=== PATIENT | female | born 1935 | race Caucasian/White ===

== ENCOUNTER → 2016-05-20 | Outpatient (CLI) | payer MEDICARE, BC | LOC: RAD 12:38 | PROVIDERS: ATTEND Internal Medicine | DX: R91.1 Solitary pulmonary nodule (principal); J98.4 Other disorders of lung | CPT/HCPCS: 71250 ==

== ENCOUNTER → 2016-06-10 | Outpatient (CLI) | payer MEDICARE, BC | LOC: RAD 13:45 | PROVIDERS: ATTEND Internal Medicine | DX: C64.1 Malignant neoplasm of right kidney, except renal pelvis (principal) | CPT/HCPCS: 78815; A9552 ==

== ENCOUNTER 2016-06-30 08:57 | Day surgery (SDC) | payer MEDICARE, BC ==
[2016-06-30 10:26] LABS: BLOOD UREA NITROGEN 34 mg/dL (7-20); CREATININE RESULT 1.65 mg/dL (0.52-1.25)
[2016-06-30 13:00] LABS: PROTHROMBIN TIME 12.5 SEC (11.4-15.4)
[2016-06-30 13:14] LABS: PARTIAL THROMBOPLASTIN TIME 20.8 SEC (23.5-35.8)
[2016-06-30] MEDS ORDERED: MIDAZOLAM 2 MG/2 ML INJ ONE (14:15)
[2016-06-30] MEDS ORDERED: FENTANYL CITRATE INJ/PF 100 MCG/2 ML AMPUL ONE (14:15)
[2016-06-30 18:39] VITALS: BP 135/64
== END 2016-06-30 18:40 | disposition home or self-care (01) ==
LOC: RAD 08:57
PROVIDERS: ATTEND Internal Medicine
PROC: 0BBF3ZX Excision of Right Lower Lung Lobe, Percutaneous Approach, Diagnostic (ICD-10-PCS; principal; 2016-06-30)
DX: C64.1 Malignant neoplasm of right kidney, except renal pelvis (principal); Z79.899 Other long term (current) drug therapy; Z79.01 Long term (current) use of anticoagulants
CPT/HCPCS: 36415; 84520; 82565; 82947; 85610; 85730; 88342 ×2; 88341 ×2; 88305 ×2; 71010; 77012; 32405; J2250; J3010

== ENCOUNTER → 2016-09-12 | Outpatient (CLI) | payer MEDICARE, BC ==
--- NOTE | 2016-09-12 11:46 | RADIOLOGY REPORT (SQ) ---
EXAM DESCRIPTION: CT CHEST WITHOUT COMPLETED DATE/TIME: 09/12/2016 10:14 am REASON FOR STUDY: KIDNEY CA C64.1 MALIGNANT NEOPLASM OF RIGHT KIDNEY, EXCEPT RENAL PELVIC COMPARISON: 05/20/2016 TECHNIQUE: CT scan performed of the chest without intravenous contrast. Images reviewed with lung, soft tissue and bone windows. Reconstructed coronal and sagittal MPR images reviewed. All images st ored on PACS. All CT scanners at this facility use dose modulation, iterative reconstruction, and/or weight based d osing when appropriate to reduce radiation dose to as low as reasonably achievable (ALARA). [facility]: Dose Right [facility]: CareDose [facility]: Dose Right [facility]: Teradose 4D [facility]: [employer] RADIATION DOSE: 4.45 mGy. LIMITATIONS: No technical limitations. FINDINGS: LUNGS AND PLEURA: Both pulmonary nodules of concern on the prior study are smaller. More cephalad 1 now measures 7.2 mm as opposed to 11.8. The more inferior nodule now measures 11.8 mm com pared with 20.1 mm on the earlier study. No new pulmonary nodules present. There is no infiltrate o r effusion. HILAR AND MEDIASTINAL STRUCTURES: No identified masses or abnormal nodes. No obvious aneurysm. HEART AND VASCULAR STRUCTURES: There is considerable aortic and coronary atherosclerosis. There is n o aneurysm. There is no pericardial effusion. UPPER ABDOMEN: See separate report of the CT of the abdomen. THYROID AND OTHER SOFT TISSUES: No masses. No adenopathy. BONES: No significant finding. HARDWARE: None in the chest. OTHER: No other significant findings. IMPRESSION: 1. Both pulmonary nodules are smaller. 2. There is no evidence of thoracic metastases. 3. There is extensive aortic and coronary atherosclerosis. TECHNICAL DOCUMENTATION: JOB ID: [id number] Quality ID # [id number]: Final reports with documentation of one or more dose reduction techniques (e.g., Au tomated exposure control, adjustment of the mA and/or kV according to patient size, use of iterative reconstruction technique) 2010 [employer]- All Rights Reserved
--- NOTE | 2016-09-12 11:59 | RADIOLOGY REPORT (SQ) ---
EXAM DESCRIPTION: CT ABD/PELVIS NO ORAL OR IV COMPLETED DATE/TIME: 09/12/2016 10:15 am REASON FOR STUDY: KIDNEY CA C64.1 MALIGNANT NEOPLASM OF RIGHT KIDNEY, EXCEPT RENAL PELVIC COMPARISON: None. TECHNIQUE: CT scan of the abdomen and pelvis performed without intravenous or oral contrast. Images reviewed with lung, soft tissue, and bone windows. Reconstructed coronal and sagittal MPR images revi ewed. All images stored on PACS. All CT scanners at this facility use dose modulation, iterative reconstruction, and/or weight based d osing when appropriate to reduce radiation dose to as low as reasonably achievable (ALARA). [facility]: Dose Right [facility]: CareDose [facility]: Dose Right [facility]: Teradose 4D [facility]: [employer] RADIATION DOSE: 6.07mGy. LIMITATIONS: None. FINDINGS: LOWER CHEST: See separate report of the CT of the chest. NON-CONTRASTED LIVER, SPLEEN, ADRENALS: Evaluation limited by lack of IV contrast. No identified sign ificant masses. PANCREAS: No masses. No peripancreatic inflammatory changes. GALLBLADDER: Not identified. RIGHT KIDNEY AND URETER: Right nephrectomy. LEFT KIDNEY AND URETER: No suspicious masses. Assessment limited by lack of IV contrast. No signifi cant calcifications. There are couple of tiny intrarenal calculi that are probably vascular. No hy dronephrosis or hydroureter. AORTA AND RETROPERITONEUM: The infrarenal abdominal aorta changes from a diameter of 24.5 mm to a eriberto meter of 17.4 mm and enlarges before the bifurcation to 23.2 mm. BOWEL AND PERITONEAL CAVITY: Scattered diverticula arise from the descending colon and sigmoid colon. There are no acute inflammatory changes. APPENDIX: Not identified. PELVIS, BLADDER, AND ABDOMINAL WALL: The urinary bladder is incompletely filled not well evaluated. The uterus is absent. There is no adnexal mass or fluid collection. BONES: Degenerative disc changes are present at L4-5 and L5-S1. OTHER: No other significant finding. IMPRESSION: 1. Status post right nephrectomy with no abdominal wall or pelvic metastases. 2. Extensive atherosclerosis is present in the abdomen. 3. There is diverticulosis coli with no acute inflammatory changes. TECHNICAL DOCUMENTATION: JOB ID: [id number] Quality ID # [id number]: Final reports with documentation of one or more dose reduction techniques (e.g., Au tomated exposure control, adjustment of the mA and/or kV according to patient size, use of iterative reconstruction technique) 2010 [employer]- All Rights Reserved
== END ==
LOC: RAD 09:53
PROVIDERS: ATTEND Internal Medicine
DX: C64.1 Malignant neoplasm of right kidney, except renal pelvis (principal)
CPT/HCPCS: 71250; 74176

== ENCOUNTER → 2017-03-24 | Outpatient (CLI) | payer MEDICARE, BC ==
--- NOTE | 2017-03-24 11:13 | RADIOLOGY REPORT (SQ) ---
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 TECHNIQUE: CT scan performed of the chest without intravenous contrast. Images reviewed with lung, soft tissue and bone windows. Reconstructed coronal and sagittal MPR images reviewed. All images st ored on PACS. All CT scanners at this facility use dose modulation, iterative reconstruction, and/or weight based d osing when appropriate to reduce radiation dose to as low as reasonably achievable (ALARA). [facility]: Dose Right [facility]: CareDose [facility]: Dose Right [facility]: Teradose 4D [facility]: [employer] RADIATION DOSE: mGy. LIMITATIONS: No technical limitations. FINDINGS: LUNGS AND PLEURA: 7 mm nodule in the anterior right lung base unchanged. 1.8 cm nodule in the posterior right lung base has increased in size. Prior measurement 1.2 cm. No new nodules or m asses. No pleural effusion or pleural thickening. HILAR AND MEDIASTINAL STRUCTURES: Right paratracheal adenopathy with coarse calcifications unchanged, measuring 1.8 x 2.4 cm. HEART AND VASCULAR STRUCTURES: No aneurysm. No pericardial effusion. UPPER ABDOMEN: See separate report of the CT of the abdomen. THYROID AND OTHER SOFT TISSUES: No masses. No adenopathy. BONES: No significant finding. HARDWARE: None in the chest. OTHER: No other significant findings. IMPRESSION: 1. INTERVAL INCREASE IN THE RIGHT LOWER LOBE LUNG NODULE DESCRIBED. THE SMALLER NODULE IN THE RIG HT LUNG BASE IS UNCHANGED. 2. RIGHT PARATRACHEAL ADENOPATHY WITH COARSE CALCIFICATIONS UNCHANGED. TECHNICAL DOCUMENTATION: JOB ID: [id number] Quality ID # [id number]: Final reports with documentation of one or more dose reduction techniques (e.g., Au tomated exposure control, adjustment of the mA and/or kV according to patient size, use of iterative reconstruction technique) 2010 [employer]- All Rights Reserved
--- NOTE | 2017-03-24 11:24 | RADIOLOGY REPORT (SQ) ---
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 TECHNIQUE: CT scan of the abdomen and pelvis performed without intravenous or oral contrast. Images reviewed with lung, soft tissue, and bone windows. Reconstructed coronal and sagittal MPR images revi ewed. All images stored on PACS. All CT scanners at this facility use dose modulation, iterative reconstruction, and/or weight based d osing when appropriate to reduce radiation dose to as low as reasonably achievable (ALARA). [facility]: Dose Right [facility]: CareDose [facility]: Dose Right [facility]: Teradose 4D [facility]: [employer] RADIATION DOSE: CT Rad equipment meets quality standard of care and radiation dose reduction techniq ues were employed. CTDIvol: 4.4 - 5.1 mGy. DLP: 413 mGy-cm.mGy. LIMITATIONS: None. FINDINGS: LOWER CHEST: See separate report of the CT of the chest. NON-CONTRASTED LIVER, SPLEEN, ADRENALS: Evaluation limited by lack of IV contrast. No identified sign ificant masses. PANCREAS: No masses. No peripancreatic inflammatory changes. GALLBLADDER: Surgically absent. RIGHT KIDNEY AND URETER: Surgically absent. LEFT KIDNEY AND URETER: No suspicious masses. Assessment limited by lack of IV contrast. No signifi cant calcifications. No hydronephrosis or hydroureter. AORTA AND RETROPERITONEUM: Extensive calcifications. No aneurysm. Stent in the left renal artery. No retroperitoneal masses or adenopathy. BOWEL AND PERITONEAL CAVITY: Colonic diverticulosis. No obvious masses or inflammatory changes. No f ree fluid. APPENDIX: Surgically absent. PELVIS, BLADDER, AND ABDOMINAL WALL:No abnormal masses. No free fluid. Bladder normal. BONES: No significant findings. Degenerative changes in the spine. OTHER: No other significant finding. IMPRESSION: 1. COLONIC DIVERTICULOSIS. NO CT FINDINGS OF ACUTE DIVERTICULITIS. 2. SURGICAL CHANGES AND OTHER CHRONIC FINDINGS ABOVE. NO EVIDENCE OF METASTATIC INVOLVEMENT OF TH E ABDOMEN OR PELVIS. COMMENT: Quality ID # 436: Final reports with documentation of one or more dose reduction techniques (e.g., Automated exposure control, adjustment of the mA and/or kV according to patient size, use of iterative reconstruction technique) TECHNICAL DOCUMENTATION: JOB ID: [id number] [employer]- All Rights Reserved
== END ==
LOC: RAD 08:18
PROVIDERS: ATTEND Internal Medicine
DX: C64.1 Malignant neoplasm of right kidney, except renal pelvis (principal)
CPT/HCPCS: 71250; 74176

== ENCOUNTER → 2017-05-04 | Outpatient (CLI) | payer MEDICARE, BC ==
--- NOTE | 2017-05-04 13:49 | RADIOLOGY REPORT (SQ) ---
EXAM DESCRIPTION: CT HEAD WITHOUT COMPLETED DATE/TIME: 05/04/2017 1:15 pm REASON FOR STUDY: MIGRAINE, UNSPECIFIED, NOT INTRACTABLE, WITHOUT STATUS MIGRAINOSUS G43.909 MIGRAI NE, UNSP, NOT INTRACTABLE, WITHOUT STATUS MIGR COMPARISON: 04/11/2012. TECHNIQUE: Axial images acquired through the brain without intravenous contrast. Images reviewed wi th bone, brain and subdural windows. Images stored on PACS. All CT scanners at this facility use dose modulation, iterative reconstruction, and/or weight based d osing when appropriate to reduce radiation dose to as low as reasonably achievable (ALARA). [facility]: Dose Right [facility]: CareDose [facility]: Dose Right [facility]: Teradose 4D [facility]: [employer] RADIATION DOSE: CT Rad equipment meets quality standard of care and radiation dose reduction techniq ues were employed. CTDIvol: 49.0 mGy. DLP: 783 mGy-cm.mGy. LIMITATIONS: None. FINDINGS: VENTRICLES: Prominent. CEREBRUM: No masses. No hemorrhage. No midline shift. Areas of low density in the white matter mos t likely due to chronic micro-vascular ischemic change. No evidence for acute infarction. CEREBELLUM: No masses. No hemorrhage. No alteration of density. No evidence for acute infarction. EXTRAAXIAL SPACES: Age-related involutional change. No fluid collections. No masses. ORBITS AND GLOBE: No intra- or extraconal masses. Normal contour of globe without masses. CALVARIUM: No fracture. PARANASAL SINUSES: No fluid or mucosal thickening. SOFT TISSUES: No mass or hematoma. OTHER: No other significant finding. IMPRESSION: CHRONIC CHANGES OF ATROPHY AND MICROVASCULAR ISCHEMIA. NO ACUTE PROCESS. EVIDENCE OF ACUTE STROKE: NO. TECHNICAL DOCUMENTATION: JOB ID: [id number] Quality ID # 436: Final reports with documentation of one or more dose reduction techniques (e.g., Au tomated exposure control, adjustment of the mA and/or kV according to patient size, use of iterative reconstruction technique) 2010 [employer]- All Rights Reserved
== END ==
LOC: RAD 12:56
PROVIDERS: ATTEND Nurse Practitioner Family
DX: G43.909 Migraine, unspecified, not intractable, without status migrainosus (principal); R41.0 Disorientation, unspecified
CPT/HCPCS: 70450

== ENCOUNTER 2017-05-09 18:26 | Emergency (ER) | payer MEDICARE, BC ==
--- NOTE | 2017-05-09 19:15 | RADIOLOGY REPORT (SQ) ---
EXAM DESCRIPTION: CT FACIAL AREA WITHOUT COMPLETED DATE/TIME: 05/09/2017 7:00 pm REASON FOR STUDY: fall COMPARISON: None. TECHNIQUE: Noncontrasted images through the facial bones and orbits windowed for bone and soft tissu e. Additional coronal and sagittal reconstructed images reviewed. All images stored on PACS. All CT scanners at this facility use dose modulation, iterative reconstruction, and/or weight based d osing when appropriate to reduce radiation dose to as low as reasonably achievable (ALARA). [facility]: Dose Right [facility]: CareDose [facility]: Dose Right [facility]: Teradose 4D [facility]: [employer] RADIATION DOSE: CT Rad equipment meets quality standard of care and radiation dose reduction techniq ues were employed. CTDIvol: 30.4 mGy. DLP: 553 mGy-cm. mGy. LIMITATIONS: None. FINDINGS: FACIAL BONES: No fracture or bone lesion. ORBITS: Intact. No fracture. Symmetric intact globes and retroorbital soft tissues. PARANASAL SINUSES: No fluid levels. SOFT TISSUES: Left periorbital hematoma. INFERIOR BRAIN: See separate report. OTHER: No other significant finding. IMPRESSION: Soft tissue injury. TECHNICAL DOCUMENTATION: JOB ID: [id number] Quality ID # 436: Final reports with documentation of one or more dose reduction techniques (e.g., Au tomated exposure control, adjustment of the mA and/or kV according to patient size, use of iterative reconstruction technique) 2010 [employer]- All Rights Reserved
--- NOTE | 2017-05-09 19:17 | RADIOLOGY REPORT (SQ) ---
EXAM DESCRIPTION: CT HEAD WITHOUT COMPLETED DATE/TIME: 05/09/2017 7:00 pm REASON FOR STUDY: fall COMPARISON: 05/04/2017 TECHNIQUE: Axial images acquired through the brain without intravenous contrast. Images reviewed wi th bone, brain and subdural windows. Images stored on PACS. All CT scanners at this facility use dose modulation, iterative reconstruction, and/or weight based d osing when appropriate to reduce radiation dose to as low as reasonably achievable (ALARA). [facility]: Dose Right [facility]: CareDose [facility]: Dose Right [facility]: Teradose 4D [facility]: [employer] RADIATION DOSE: CT Rad equipment meets quality standard of care and radiation dose reduction techniq ues were employed. CTDIvol: 64.6 mGy. DLP: 1034 mGy-cm.mGy. LIMITATIONS: None. FINDINGS: VENTRICLES: Prominent. CEREBRUM: No masses. No hemorrhage. No midline shift. Areas of low density in the white matter mos t likely due to chronic micro-vascular ischemic change. No evidence for acute infarction. CEREBELLUM: No masses. No hemorrhage. No alteration of density. No evidence for acute infarction. EXTRAAXIAL SPACES: Age-related involutional change. No fluid collections. No masses. ORBITS AND GLOBE: No intra- or extraconal masses. Normal contour of globe without masses. CALVARIUM: No fracture. PARANASAL SINUSES: No fluid levels. SOFT TISSUES: Left periorbital and frontal scalp hematoma. OTHER: No other significant finding. IMPRESSION: CHRONIC CHANGES OF ATROPHY AND MICROVASCULAR ISCHEMIA. NO ACUTE PROCESS. EVIDENCE OF ACUTE STROKE: NO. TECHNICAL DOCUMENTATION: JOB ID: [id number] Quality ID # [id number]: Final reports with documentation of one or more dose reduction techniques (e.g., Au tomated exposure control, adjustment of the mA and/or kV according to patient size, use of iterative reconstruction technique) 2010 [employer]- All Rights Reserved
[2017-05-09] MEDS ORDERED: LIDOCAINE 1% INJ-PF (10 MG/ML) 30 ML SDV INJ ONE (19:50)
--- NOTE | 2017-05-09 19:52 | ER Document Report ---
ED Fall - General Chief Complaint: Fall Injury Stated Complaint: FALL,FACIAL LACERATION Time Seen by Provider: 05/09/17 19:42 Notes: Patient is an 82-year-old female that comes emergency department for chief complaint of fall with bruising around her left eye and nose and an open wound above her left eyebrow. She states she tripped on the sidewalk, she hit her left knee on the ground and then hit her face on the ground. She denies loss of consciousness, visual changes, nausea or vomiting. She denies neck pain, tingling/numbness, focal weakness. She takes 81 mg aspirin daily but no daily blood thinners otherwise. Family at bedside. TRAVEL OUTSIDE OF THE [place] IN LAST 30 DAYS: No - Related data Allergies/Adverse Reactions: DENZEL Inhibitors [Denzel Inhibitors] Allergy (Verified 07/13/13 21:14) ACEINHIBITORS [DENZEL Inhibitors] Allergy (Verified 08/04/13 18:22) amlodipine besylate [From Norvasc] Allergy (Verified 07/13/13 21:14) exenatide [From Byetta] Allergy (Verified 07/13/13 21:14) Iodinated Contrast- Oral and IV Dye [IV Dye, Iodine Containing] Allergy ( Verified 08/04/13 18:22) metformin [Metformin] Allergy (Verified 08/04/13 18:22) morphine [Morphine] Allergy (Verified 07/13/13 18:12) nitrofurantoin [From Macrobid] Allergy (Verified 07/13/13 18:12) nitrofurantoin macrocrystalline [From Macrobid] Allergy (Verified 07/13/13 18:12 ) Past Medical History - General Information source: Patient - Social History Smoking Status: Never Smoker Chew tobacco use (# tins/day): No Frequency of alcohol use: None Drug Abuse: None Lives with: Family Family History: CVA, None, Reviewed & Not Pertinent Patient has suicidal ideation: No Patient has homicidal ideation: No - Past Medical History Cardiac Medical History: Reports: Hx DVT, Hx Hypercholesterolemia, Hx Hypertension Denies: Hx Coronary Artery Disease, Hx Heart Attack Pulmonary Medical History: Denies: Hx Asthma, Hx Bronchitis, Hx COPD, Hx Pneumonia Neurological Medical History: Reports: Hx Migraine. Denies: Hx Cerebrovascular Accident, Hx Seizures Endocrine Medical History: Reports: Hx Diabetes Mellitus Type 2, Hx Hypothyroidism Renal/ Medical History: Reports: Hx Renal Insufficiency. Denies: Hx Peritoneal Dialysis Malignancy Medical History: Reports: Hx Renal (Kidney) Cancer GI Medical History: Reports: Hx Gastroesophageal Reflux Disease, Hx Irritable Bowel. Denies: Hx Hepatitis, Hx Hiatal Hernia, Hx Ulcer Musculoskeltal Medical History: Reports Hx Arthritis, Reports Hx Gout, Reports Hx Muscle Spasm Psychiatric Medical History: Reports: Hx Depression Infectious Medical History: Denies: Hx Hepatitis Past Surgical History: Reports: Hx Appendectomy, Hx Section, Hx Cholecystectomy, Hx Genitourinary Surgery - right nephrectomy, Hx Kidney (Renal Surgery) - Right nephrectomy for renal cell carcinoma, Hx Thyroid Surgery - thyroidectomy. Denies: Hx Mastectomy, Hx Open Heart Surgery, Hx Pacemaker - Immunizations Hx Diphtheria, Pertussis, Tetanus Vaccination: No Review of Systems - Review of Systems Constitutional: No symptoms reported EENT: No symptoms reported Cardiovascular: No symptoms reported Respiratory: No symptoms reported Gastrointestinal: No symptoms reported Genitourinary: No symptoms reported Female Genitourinary: No symptoms reported Musculoskeletal: See HPI Skin: See HPI Hematologic/Lymphatic: No symptoms reported Neurological/Psychological: See HPI Physical Exam - Vital signs Vitals: Temp Pulse Resp BP Pulse Ox 98.4 F 70 18 204/59 H 99 05/09/17 18:51 05/09/17 18:51 05/09/17 18:51 05/09/17 18:51 05/09/17 18:51 Interpretation: Normal - General General appearance: Alert In distress: None - HEENT Head: Normocephalic. No: Atraumatic - There is a 2.5 cm linear horizontal partial-thickness laceration just above the left eyebrow on the forehead. There is also an irregular flap laceration over the left upper bridge of the nose which is superficial. Eyes: Other - Left periorbital ecchymosis with some soft tissue swelling, people still intact, normal sclera, normal EOMs, no hyphema, normal eye exam otherwise Eyelashes: Normal Pupils: PERRL Ears: Normal Sinus: Normal Nasal: Normal Mouth/Lips: Normal Mucous membranes: Normal Pharynx: Normal Neck: Normal - Respiratory Respiratory status: No respiratory distress Chest status: Nontender Breath sounds: Normal. No: Decreased air movement, Wheezing - Cardiovascular Rhythm: Regular. No: Tachycardia Heart sounds: Normal auscultation, S1 appreciated, S2 appreciated Murmur: No - Abdominal Inspection: Normal Distension: No distension Bowel sounds: Normal Tenderness: Nontender. No: Tender, Guarding - Back Back: Normal, Nontender. No: Tender, Vertebra tenderness - No midline tenderness, no signs of trauma, normal range of motion of all extremities, normal distal neurovascular exam, no saddle anesthesia - Extremities General upper extremity: Normal inspection, Nontender, Normal color, Normal ROM , Normal temperature General lower extremity: Other - Superficial abrasion and small bruise over the left patellar area, normal range of motion of the knee, good weightbearing, normal distal neurovascular exam, normal lower extremity exam otherwise - Neurological Neuro grossly intact: Yes Cognition: Normal Orientation: AAOx4 Meherrin Coma Scale Eye Opening: Spontaneous Liana Coma Scale Verbal: Oriented Liana Coma Scale Motor: Obeys Commands Meherrin Coma Scale Total: 15 Speech: Normal Motor strength normal: LUE, RUE, LLE, RLE Sensory: Normal - Psychological Associated symptoms: Normal affect, Normal mood - Skin Skin Temperature: Warm Skin Moisture: Dry Skin Color: Normal Course - Re-evaluation Re-evalutation: Patient is smiling, talkative, alert, oriented, cooperative, has no neurological deficits on examination. CAT scan of the head performed in triage reviewed, shows no intracranial hemorrhage, fracture, only shows soft tissue swelling around the left orbit. No entrapment, no visual changes. X-ray of the knee is unremarkable. No neck pain or back concerns on examination. Wounds repaired, discussed wound care, discussed head injury precautions, patient is very ready to leave. Patient and family state understanding and agreement. - Vital Signs Vital signs: Temp Pulse Resp BP Pulse Ox 98.4 F 59 L 18 188/64 H 96 05/09/17 21:46 05/09/17 21:46 05/09/17 21:46 05/09/17 21:46 05/09/17 21:46 - Diagnostic Test Radiology reviewed: Image reviewed, Reports reviewed Procedures - Laceration/Wound Repair Left forehead Wound length (cm): 2.5 Wound's Depth, Shape: Linear Laceration pre-procedure: Sterile PPE donned, Sterile drapes applied, Shur- Clens applied Anesthetic type: 1% Lidocaine Volume Anesthetic (mLs): 4 Wound explored: Clean, No foreign body removed Wound Repaired With: Sutures Suture Size/Type: 6:0, Nylon Number of Sutures: 5 Layer Closure?: No Post-procedure wound care: Sterile dressing applied Post-procedure NV exam normal: Yes Complications: No Left upper nasal bridge Wound length (cm): 1 Wound's Depth, Shape: Flap Laceration pre-procedure: Sterile PPE donned, Sterile drapes applied, Shur- Clens applied Anesthetic type: 1% Lidocaine Volume Anesthetic (mLs): 1 Wound explored: Clean, No foreign body removed Wound Repaired With: Sutures Suture Size/Type: 6:0 Number of Sutures: 3 Layer Closure?: No Post-procedure NV exam normal: Yes Complications: No Discharge - Discharge Clinical Impression: Facial laceration Qualifiers: Encounter type: initial encounter Qualified Code(s): S01.81XA - Laceration without foreign body of other part of head, initial encounter Facial hematoma Qualifiers: Encounter type: initial encounter Qualified Code(s): S00.83XA - Contusion of other part of head, initial encounter Fall Qualifiers: Encounter type: initial encounter Qualified Code(s): W19.XXXA - Unspecified fall, initial encounter Condition: Stable Disposition: HOME, SELF-CARE Additional Instructions: Imaging of the head, face, knee show no concerning findings, there is soft tissue swelling and hematoma of the face. Sutures need to come out in about 1 week at a medical facility, either primary care, urgent care, or you can return here. Keep wounds clean, clean gently with soap and water, dab dry, avoid soaking, apply topical antibiotic. Please follow head injury precautions listed below. Return for any other concerning symptoms including redness, swelling, fever, or any other concerning symptoms. Head Injury Precautions At this point, there is no evidence that your head injury is serious. Observation is necessary, however. Take only clear liquids for the first few hours, unless told otherwise by the doctor. If no pain medication was prescribed, you may take acetaminophen according to the directions on the bottle. Do not take any medication that may alter your level of alertness (unless you've discussed it with the doctor first) . Limit activity for the first 24 hours. Bed rest is best. During the first 24 hours, check to see approximately every two to three hours that the patient is easily arousable, responds normally, and can perform common tasks such as walking without difficulty. Contact your doctor or go to the hospital if any of the following things occur: Persistent vomiting, difficulty in arousing the patient, worsening or continued headache, or failure to improve as expected. Head injuries can cause symptoms that persist for a few days or even a few weeks. Referrals: ANDREI QUIJANO JR, MD [Primary Care Provider] - Follow up as needed
--- NOTE | 2017-05-09 20:53 | RADIOLOGY REPORT (SQ) ---
EXAM DESCRIPTION: KNEE LEFT 4 VIEW COMPLETED DATE/TIME: 05/09/2017 8:09 pm REASON FOR STUDY: fall on knee, pain COMPARISON: None. NUMBER OF VIEWS: Four views. TECHNIQUE: AP, lateral, and both oblique radiographic images acquired of the left knee. LIMITATIONS: None. FINDINGS: MINERALIZATION: Normal. BONES: No acute fracture or dislocation. No worrisome bone lesions. JOINT: No effusion. SOFT TISSUES: No soft tissue swelling. No radio-opaque foreign body. OTHER: No other significant finding. IMPRESSION: NO RADIOGRAPHIC EVIDENCE OF ACUTE INJURY. TECHNICAL DOCUMENTATION: JOB ID: [id number] [employer]- All Rights Reserved
[2017-05-09 21:51] VITALS: BP 188/64
== END 2017-05-09 21:46 | disposition home or self-care (01) ==
LOC: ER 18:26
PROC: 0HQ1XZZ Repair Face Skin, External Approach (ICD-10-PCS; principal; 2017-05-09)
DX: S01.112A Laceration without foreign body of left eyelid and periocular area, initial encounter (principal); S01.81XA Laceration without foreign body of other part of head, initial encounter; S00.83XA Contusion of other part of head, initial encounter; W18.30XA Fall on same level, unspecified, initial encounter; E78.00 Pure hypercholesterolemia, unspecified; I10 Essential (primary) hypertension; E11.9 Type 2 diabetes mellitus without complications; E03.9 Hypothyroidism, unspecified; Z79.82 Long term (current) use of aspirin; Z86.718 Personal history of other venous thrombosis and embolism; Z85.528 Personal history of other malignant neoplasm of kidney; Z90.49 Acquired absence of other specified parts of digestive tract
CPT/HCPCS: 99284; 73562; 70450; 70486; 12013; J3490

== ENCOUNTER → 2017-05-29 | Outpatient (CLI) | payer MEDICARE, BC ==
--- NOTE | 2017-05-29 09:10 | RADIOLOGY REPORT (SQ) ---
EXAM DESCRIPTION: CT HEAD WITHOUT COMPLETED DATE/TIME: 05/29/2017 8:49 am REASON FOR STUDY: G43.909 MIGRAINE, UNSP, NOT INTRACTABLE, WITHOUT STATUS MIGRAINOSUS R41.0 D C64.1 MALIGNANT NEOPLASM OF RIGHT KIDNEY, EXCEPT RENAL PELVI G43.909 MIGRAINE, UNSP, NOT INTRACTABLE, WIT HOUT STATUS MIGR R41.0 DISORIENTATION, UNSPECIFIED COMPARISON: None. TECHNIQUE: Axial images acquired through the brain without intravenous contrast. Images reviewed wi th bone, brain and subdural windows. Images stored on PACS. All CT scanners at this facility use dose modulation, iterative reconstruction, and/or weight based d osing when appropriate to reduce radiation dose to as low as reasonably achievable (ALARA). [facility]: Dose Right [facility]: CareDose [facility]: Dose Right [facility]: Teradose 4D [facility]: [employer] RADIATION DOSE: CT Rad equipment meets quality standard of care and radiation dose reduction techniq ues were employed. CTDIvol: 49.0 mGy. DLP: 783 mGy-cm. mGy. LIMITATIONS: None. FINDINGS: VENTRICLES: Normal size and contour. CEREBRUM: No masses. No hemorrhage. No midline shift. No evidence for acute infarction. Normal gra y/white matter differentiation. No areas of low density in the white matter. CEREBELLUM: No masses. No hemorrhage. No alteration of density. No evidence for acute infarction. EXTRAAXIAL SPACES: No fluid collections. No masses. ORBITS AND GLOBE: No intra- or extraconal masses. Normal contour of globe without masses. CALVARIUM: No fracture. PARANASAL SINUSES: No fluid or mucosal thickening. SOFT TISSUES: No mass or hematoma. OTHER: No other significant finding. IMPRESSION: NORMAL BRAIN CT WITHOUT CONTRAST. EVIDENCE OF ACUTE STROKE: NO. COMMENT: Quality ID # 436: Final reports with documentation of one or more dose reduction techniques (e.g., Automated exposure control, adjustment of the mA and/or kV according to patient size, use of iterative reconstruction technique) TECHNICAL DOCUMENTATION: JOB ID: [id number]- All Rights Reserved
== END ==
LOC: RAD 08:23
PROVIDERS: ATTEND Physician Assistant Medical
DX: G43.909 Migraine, unspecified, not intractable, without status migrainosus (principal); R41.0 Disorientation, unspecified
CPT/HCPCS: 70450

== ENCOUNTER → 2017-05-31 | Outpatient (CLI) | payer MEDICARE, BC ==
--- NOTE | 2017-05-31 16:34 | RADIOLOGY REPORT (SQ) ---
EXAM DESCRIPTION: CT ABD/PELVIS NO ORAL OR IV COMPLETED DATE/TIME: 05/31/2017 3:50 pm REASON FOR STUDY: C64.1 MALIGNANT NEOPLASM OF RIGHT KIDNEY EXCEPT RENAL PELVIS C64.1 MALIGNANT NEOP LASM OF RIGHT KIDNEY, EXCEPT RENAL PELVI COMPARISON: 03/24/2017. TECHNIQUE: CT scan of the abdomen and pelvis performed without intravenous or oral contrast. Images reviewed with lung, soft tissue, and bone windows. Reconstructed coronal and sagittal MPR images revi ewed. All images stored on PACS. All CT scanners at this facility use dose modulation, iterative reconstruction, and/or weight based d osing when appropriate to reduce radiation dose to as low as reasonably achievable (ALARA). [facility]: Dose Right [facility]: CareDose [facility]: Dose Right [facility]: Teradose 4D [facility]: [employer] RADIATION DOSE: CT Rad equipment meets quality standard of care and radiation dose reduction techniq ues were employed. CTDIvol: 4.4 - 5.3 mGy. DLP: 408 mGy-cm.mGy. LIMITATIONS: None. FINDINGS: LOWER CHEST: Stable right lower lobe mass measured appearing 1.7 cm. Stable adjacent pulm onary nodule measuring 0.5 cm. Stable pulmonary nodule right middle lobe measuring 0.6 cm. LIVER: No abnormality seen. SPLEEN: No abnormality seen. ADRENALS right adrenal nonvisualized. Left adrenal: Hyperplasia not excluded. PANCREAS: Pancreas: No abnormality seen. GALLBLADDER: Absent. RIGHT KIDNEY AND URETER: Absent. LEFT KIDNEY AND URETER: Renal vascular calcification. No abnormality seen. AORTA AND RETROPERITONEUM: Atherosclerotic change extending into the iliac and femoral vessels. Left renal artery stent. Minimal atherosclerotic dilatation infrarenal abdominal aorta measuring 2.6 x 2 .5 cm. BOWEL AND PERITONEAL CAVITY: Colonic diverticulosis thickening of the mucosa of the descending colon with surrounding pericolonic inflammatory change change. Possibility of acute diverticulitis superim posed on chronic diverticulitis not excluded APPENDIX: Absent. PELVIS, BLADDER, AND ABDOMINAL WALL:Urinary bladder: No abnormality seen. Uterus: Absent. . BONES: Multilevel lumbar spondylosis and degenerative disc disease degenerative disc disease at T10-1 1 OTHER: No other significant finding. IMPRESSION: 1. Status post cholecystectomy and right nephroureterectomy. Status post right adrenal ectomy. Status post appendectomy by history. 2. Since the prior study there has been thickening of the mucosa of the descending and proximal rect osigmoid colon with pericolonic inflammatory change. The possibility of diverticulitis superimposed on chronic diverticulosis not excluded. 3. Pulmonary nodule right lung base. Findings could represent pulmonary metastases demonstrating no significant interval change. COMMENT: Quality ID # 436: Final reports with documentation of one or more dose reduction techniques (e.g., Automated exposure control, adjustment of the mA and/or kV according to patient size, use of iterative reconstruction technique) TECHNICAL DOCUMENTATION: JOB ID: [id number] SC-69 2010 [email or web address]- All Rights Reserved
--- NOTE | 2017-05-31 16:49 | RADIOLOGY REPORT (SQ) ---
EXAM DESCRIPTION: CT CHEST WITHOUT COMPLETED DATE/TIME: 05/31/2017 3:50 pm REASON FOR STUDY: C64.1 MALIGNANT NEOPLASM OF RIGHT KIDNEY EXCEPT RENAL PELVIS C64.1 MALIGNANT NEOP LASM OF RIGHT KIDNEY, EXCEPT RENAL PELVI COMPARISON: 03/24/2017. TECHNIQUE: CT scan performed of the chest without intravenous contrast. Images reviewed with lung, soft tissue and bone windows. Reconstructed coronal and sagittal MPR images reviewed. All images st ored on PACS. All CT scanners at this facility use dose modulation, iterative reconstruction, and/or weight based d osing when appropriate to reduce radiation dose to as low as reasonably achievable (ALARA). [facility]: Dose Right [facility]: CareDose [facility]: Dose Right [facility]: Teradose 4D [facility]: [employer] RADIATION DOSE: 408.2mGy. LIMITATIONS: No technical limitations. FINDINGS: LUNGS AND PLEURA: There are 3 stable pulmonary nodules of the right lung base demonstrate no significant change. The largest nodule is noted in the right lower lobe measuring 1 .6 cm with ad jacent smaller nodule measuring 0.5 cm. Stable right middle lobe nodule measuring 0.4 cm. HILAR AND MEDIASTINAL STRUCTURES: Stable calcified right paratracheal nodes measuring 2.4 x 2.3 cm. HEART AND VASCULAR STRUCTURES: Atherosclerotic coronary artery calcification. Atherosclerotic change of the thoracic aorta. UPPER ABDOMEN: No significant findings. Limited exam. THYROID AND OTHER SOFT TISSUES: No abnormality seen. BONES: No significant finding. IMPRESSION: Stable pulmonary nodules right middle and right lower lobe. No significant interval violetta nge. TECHNICAL DOCUMENTATION: JOB ID: [id number] SC-69 Quality ID # 436: Final reports with documentation of one or more dose reduction techniques (e.g., Au tomated exposure control, adjustment of the mA and/or kV according to patient size, use of iterative reconstruction technique) 2010 [employer]- All Rights Reserved
== END ==
LOC: RAD 16:16
PROVIDERS: ATTEND Physician Assistant Medical
DX: C64.1 Malignant neoplasm of right kidney, except renal pelvis (principal); R91.8 Other nonspecific abnormal finding of lung field
CPT/HCPCS: 71250; 74176

== ENCOUNTER → 2017-08-22 | Outpatient (CLI) | payer MEDICARE, BC ==
--- NOTE | 2017-08-22 10:24 | RADIOLOGY REPORT (SQ) ---
EXAM DESCRIPTION: CT CHEST WITHOUT; CT ABD/PELVIS NO ORAL OR IV COMPLETED DATE/TIME: 08/22/2017 8:44 am REASON FOR STUDY: C64.1 MALIGNANT NEOPLASM OF RIGHT KIDNEY, EXCEPT RENAL PELVIS; C64.1 C64.1 MALIGN ANT NEOPLASM OF RIGHT KIDNEY, EXCEPT RENAL PELVI COMPARISON: CT chest abdomen and pelvis 05/31/2017, 03/24/2017 PET-CT 06/10/2016 TECHNIQUE: CT scan of the chest performed without intravenous contrast using helical scanning techni que. Images reviewed with lung, soft tissue and bone windows. Reconstructed coronal and sagittal MPR images reviewed. All images stored on PACS. CT scan of the abdomen and pelvis performed without intravenous contrast and withoutoral contrast usi ng helical scanning technique with dynamic intravenous contrast injection. Images reviewed with lung , soft tissue and bone windows. Reconstructed coronal and sagittal MPR images reviewed. All images stored on PACS. All CT scanners at this facility use dose modulation, iterative reconstruction, and/or weight based d osing when appropriate to reduce radiation dose to as low as reasonably achievable (ALARA). [facility]: Dose Right [facility]: CareDose [facility]: Dose Right [facility]: Teradose 4D [facility]: [employer] RADIATION DOSE: CT Rad equipment meets quality standard of care and radiation dose reduction techniq ues were employed. CTDIvol: 4.4 - 5.5 mGy. DLP: 434 mGy-cm. mGy. LIMITATIONS: No technical limitations. FINDINGS: CHEST: AXILLAE: No adenopathy. CHEST WALL: No masses. No subcutaneous air. LUNGS: There is a right lower lobe nodule on axial image PET, 1.3 x 1.3 cm in size (was 1.7 cm diamet er 05/31/2017, 1.8 cm diameter 06/10/2016). Along the anterior inferior aspect of the major fissure, a right middle lobe nodule is present, 0.9 x 0.8 cm in size on axial image 74 (was 1.3 cm on 06/10/2016, 9 mm on 05/31/2017). There is trace right pleural effusion. Mild diffuse interstitial edema throughout both lungs seen. PLEURA: Trace right pleural effusion. THYROID: No masses or significant asymmetry. HILAR AND MEDIASTINAL STRUCTURES: A right paratracheal partially calcified nodule is present, 2.6 x 2 .6 cm on axial image 16 (was 2.5 cm in size 05/31/2017, 2.6 cm in size 03/24/2017). AORTA AND GREAT VESSELS: No aneurysm. HEART: No pericardial effusion. Calcified coronary arteries. Calcified aortic valve. HARDWARE AND LIFELINES: None. BONES: No significant finding. OTHER: No other significant finding. ABDOMEN AND PELVIS: LIVER: Normal size. No masses. No dilated ducts. SPLEEN: Normal size. No focal lesions. PANCREAS: No masses. No significant calcifications. No adjacent inflammation or peripancreatic flui d collections. Pancreatic duct not dilated. GALLBLADDER: Surgically absent ADRENAL GLANDS: No significant masses or asymmetry. RIGHT KIDNEY AND URETER: Post right nephro ureterectomy LEFT KIDNEY AND URETER: No solid masses. Assessment limited by lack of IV contrast. No significant calcifications. No hydronephrosis or hydroureter. AORTA AND VESSELS: No aneurysm. RETROPERITONEUM: No retroperitoneal adenopathy, hemorrhage or masses. APPENDIX: Not visualized, likely surgically absent diffuse colonic diverticulosis without CT signs of acute diverticulitis LARGE AND SMALL BOWEL: No dilatation. No masses. No wall thickening. ABDOMINAL WALL: No hernia or masses. PERITONEAL CAVITY: Trace cul-de-sac fluid. No free intraperitoneal air. PELVIS: No mass or free fluid. Normal bladder. Post hysterectomy BONES: No significant or acute findings. OTHER: No other significant finding. IMPRESSION: Decrease in size of right lower lobe nodule compared to previous studies. Decrease in size of right middle lobe nodule compared to previous studies Trace right pleural effusion with mild bilateral interstitial pulmonary edema Post right nephro ureterectomy without right-sided renal malignancy recurrence at the surgical bed. TECHNICAL DOCUMENTATION: JOB ID: [id number] Quality ID # 436: Final reports with documentation of one or more dose reduction techniques (e.g., Au tomated exposure control, adjustment of the mA and/or kV according to patient size, use of iterative reconstruction technique) 2010 [employer]- All Rights Reserved Reading location - IP/workstation name: [email or web address]
== END ==
LOC: RAD 09:04
PROVIDERS: ATTEND Internal Medicine
DX: C64.1 Malignant neoplasm of right kidney, except renal pelvis (principal)
CPT/HCPCS: 71250; 74176

== ENCOUNTER 2017-09-19 10:55 | Day surgery (SDC) | payer MEDICARE, BC ==
[~2017-09-19 10:55] MED LIST: ACETAMINOPHEN 325 MG TABLET PO PRN; CEFAZOLIN 1 GM/D5W RTU 1 GM/50 ML RTUPB IV PRN; RINGERS SOLUTION,LACTATED 1,000 ML IV PRN
[2017-09-19] MEDS ORDERED: BACITRACIN INJ 50,000 UNIT VIAL ONE (11:28)
[2017-09-19] MEDS ORDERED: LIDOCAINE 0.5% INJ-PF (5 MG/ML) 50 ML SDV ONE (11:28)
[2017-09-19] MEDS ORDERED: FENTANYL CITRATE INJ/PF 100 MCG/2 ML AMPUL ONE (11:29)
[2017-09-19] MEDS ORDERED: MIDAZOLAM 2 MG/2 ML INJ ONE (11:29)
[2017-09-19 11:58] LABS: HEMATOCRIT 24.1 % (36.0-47.0); HEMOGLOBIN 8.1 g/dL (12.0-15.5); MEAN CORPUSCULAR HEMOGLOBIN 33.1 pg (27.0-33.4); MEAN CORPUSCULAR HGB CONC 33.5 g/dL (32.0-36.0); MEAN CORPUSCULAR VOLUME 99 fl (80-97); RED BLOOD COUNT 2.44 10^6/uL (3.72-5.28); WHITE BLOOD COUNT 5.7 10^3/uL (4.0-10.5)
[2017-09-19] MEDS ORDERED: CEFAZOLIN INJ 1 GM VIAL ONE (11:59)
[2017-09-19 12:20] LABS: PLATELET COUNT 112 10^3/uL (150-450)
--- NOTE | 2017-09-19 13:22 | Discharge Summary ---
Discharge Summary (SDC) - Discharge Final Diagnosis: Renal carcinoma. Date of Surgery: 09/19/17 Discharge Date: 09/19/17 Condition: Poor Treatment or Instructions: Discharge home [after recovery per ASU criteria]. Diet ,as tolerated, when fully awake advance as tolerated. Activities within moderation encouraged. Follow up in my office by appointment in about [1 week]. Call for appointment. Leave wounds [covered], [keep clean and dry, until office visit in 1 week]. Hold of on school/work [until evaluation in office]. Meds per med rec. May shower [in 48 hrs], [try to keep operated area as dry as possible]. Referrals: BERTHA NIELSON PA-C [Primary Care Provider] - Discharge Diet: As Tolerated Respiratory Treatments at Home: Deep Breathing/Coughing Discharge Activity: Activity As Tolerated Report the Following to Your Physician Immediately: Shortness of Breath, Unusual Bleeding
--- NOTE | 2017-09-19 13:24 | Operative Report ---
Operative Report DATE OF SURGERY: 09/19/17 PREOPERATIVE DIAGNOSIS: Renal carcinoma. POSTOPERATIVE DIAGNOSIS: Renal carcinoma. OPERATION: 1. Ultrasound evaluation of the right internal jugular vein. 2. Insertion of Port-A-Cath via real-time access in the right internal jugular vein. 3. Angiogram and interpretation. SURGEON: NORM ESTRADA NOZZLEMAN: None. ANESTHESIA: Moderate Sedation TISSUE REMOVED OR ALTERED: Not applicable. COMPLICATIONS: None. ESTIMATED BLOOD LOSS: 5 mL. INTRAOPERATIVE FINDINGS: Satisfactory right internal jugular vein to accept access and Port-A-Cath. Easy egress of blood and ingress of heparinized solution. No contrast was used in defference of the patient's allergies. PROCEDURE: After obtaining informed consent, the patient was taken to the Gel [facility] and positioned supine. The [right] neck and chest were prepared with chlorhexidine and draped out with sterile linen. After the " universal timeout", in which it was verified that the patient continued to receive antibiotic, the procedure commenced. A steriley sheathed ultrasound probe was used to evaluate the [ right] internal jugular vein. Local anesthesia was infiltrated adjacent to the probe. Access into the [right] internal jugular vein was obtained using a micropuncture needle, followed by micropuncture wire and then a micropuncture catheter. This was followed by introduction of a 0.035 guidewire the tip of which was placed down into the inferior vena cava . The port sites was marked , locally anesthetized and incision made. Dissection now proceeded to the deep subcutaneous subcutaneous tissues so that a pocket for the port was made. Meticulous hemostasis was secured and the catheter was tunneled between the 2 incisions. Proximally, the catheter was now positioned using a peel-away sheath. Distally the catheter was tailored to an appropriate length and then mated to the port using the contained fixating device. The port was now placed in the pocket and the catheter optimally positioned. The port was accessed with a Guzman needle and an angiogram done under digital subtraction. The findings as dictated. With adequate and satisfactory positioning, both lumens of the chamber were irrigated with heparinized solution. The wounds were now closed using interrupted 3-0 PDS to the subcutaneous tissues and a continuous subcuticular suture of 4-0 Monocryl to the skin. These are reinforced with Steri-Strips over benzoin and then dressings applied. Time: 0.1 minute. Dose: 3.63 Swapna khanna. Contrast: 0. Copies of the dictated operative report for Dr. Norm Chatterjee MD.
--- NOTE | 2017-09-19 13:27 | RADIOLOGY REPORT (SQ) ---
EXAM DESCRIPTION: PORTACATH INSERTION; GUIDANCE FLUOROSCOPIC COMPLETED DATE/TIME: 09/19/2017 12:39 pm REASON FOR STUDY: C64.1 C64.1 MALIGNANT NEOPLASM OF RIGHT KIDNEY, EXCEPT RENAL PELVI COMPARISON: None. FLUOROSCOPY TIME: Less than 5 seconds 12 series of digital images saved to PACS. TECHNIQUE: Intra-operative images acquired during surgical procedure to evaluate progress. NUMBER OF IMAGES: 12 series of digital images LIMITATIONS: None. FINDINGS: Intra procedural imaging and fluoro during right-sided central venous catheter placement b y Dr. Chatterjee. IMPRESSION: Intra procedural imaging and fluoro COMMENT: Quality ID 145: Final reports for procedures using fluoroscopy that document radiation exp osure indices, or exposure time and number of fluorographic images (if radiation exposure indices are not available) Please consult full operative report of the attending physician for description of the procedure. TECHNICAL DOCUMENTATION: JOB ID: [id number] [employer]- All Rights Reserved Reading location - IP/workstation name: [email or web address]
--- NOTE | 2017-09-19 13:27 | RADIOLOGY REPORT (SQ) ---
EXAM DESCRIPTION: PORTACATH INSERTION; GUIDANCE FLUOROSCOPIC COMPLETED DATE/TIME: 09/19/2017 12:39 pm REASON FOR STUDY: C64.1 C64.1 MALIGNANT NEOPLASM OF RIGHT KIDNEY, EXCEPT RENAL PELVI COMPARISON: None. FLUOROSCOPY TIME: Less than 5 seconds 12 series of digital images saved to PACS. TECHNIQUE: Intra-operative images acquired during surgical procedure to evaluate progress. NUMBER OF IMAGES: 12 series of digital images LIMITATIONS: None. FINDINGS: Intra procedural imaging and fluoro during right-sided central venous catheter placement b y Dr. Chatterjee. IMPRESSION: Intra procedural imaging and fluoro COMMENT: Quality ID 145: Final reports for procedures using fluoroscopy that document radiation exp osure indices, or exposure time and number of fluorographic images (if radiation exposure indices are not available) Please consult full operative report of the attending physician for description of the procedure. TECHNICAL DOCUMENTATION: JOB ID: [id number] [employer]- All Rights Reserved Reading location - IP/workstation name: [email or web address]
[2017-09-19] MEDS ORDERED: NORMAL SALINE 1000 ML 1,000 ML IV PRN (13:28)
[2017-09-19 14:33] VITALS: BP 131/62
== END 2017-09-19 14:15 | disposition home or self-care (01) ==
LOC: CCL 10:55
PROVIDERS: ATTEND Surgery
DX: C64.1 Malignant neoplasm of right kidney, except renal pelvis (principal); I12.0 Hypertensive chronic kidney disease with stage 5 chronic kidney disease or end stage renal disease; E11.22 Type 2 diabetes mellitus with diabetic chronic kidney disease; F32.9 Major depressive disorder, single episode, unspecified; E78.00 Pure hypercholesterolemia, unspecified; E21.3 Hyperparathyroidism, unspecified; K58.9 Irritable bowel syndrome, unspecified; N28.9 Disorder of kidney and ureter, unspecified; N18.6 End stage renal disease; E07.9 Disorder of thyroid, unspecified; Z88.5 Allergy status to narcotic agent; Z79.82 Long term (current) use of aspirin; Z79.84 Long term (current) use of oral hypoglycemic drugs; Z79.899 Other long term (current) drug therapy; Z90.5 Acquired absence of kidney
CPT/HCPCS: 36415; 82962; 85027; 36561; 76937; 77001; C1788; J2250; J3490 ×2; J0690; J3010; J1644

== ENCOUNTER 2017-10-09 08:28 | Outpatient (CLI) | payer MEDICARE, BC ==
[~2017-10-09 08:28] MED LIST changes: -CEFAZOLIN 1 GM/D5W RTU 1 GM/50 ML RTUPB IV PRN; +DIPHENHYDRAMINE HCL 25 MG CAPSULE PO PRN; -RINGERS SOLUTION,LACTATED 1,000 ML IV PRN
[2017-10-09 09:02] LABS: HEMATOCRIT 24.9 % (36.0-47.0); HEMOGLOBIN 8.3 g/dL (12.0-15.5); MEAN CORPUSCULAR HEMOGLOBIN 32.5 pg (27.0-33.4); MEAN CORPUSCULAR HGB CONC 33.3 g/dL (32.0-36.0); MEAN CORPUSCULAR VOLUME 98 fl (80-97); PLATELET COUNT 108 10^3/uL (150-450); RED BLOOD COUNT 2.56 10^6/uL (3.72-5.28); RED CELL DISTRIBUTION WIDTH 14.4 % (11.5-14.0); WHITE BLOOD COUNT 4.5 10^3/uL (4.0-10.5)
[2017-10-09] MEDS ORDERED: FUROSEMIDE INJ/PF 40 MG/4 ML SDV IV PRN (09:26)
[2017-10-09] MEDS ORDERED: NORMAL SALINE INJ/PF 0.9% 10 ML SDV IV PRN (10:07)
[2017-10-09 15:43] VITALS: BP 122/41
== END 2017-10-09 17:05 | disposition home or self-care (01) ==
LOC: LAB 08:28 → 2N 08:29 → LAB 17:05
PROVIDERS: ATTEND Internal Medicine Nephrology
PROC: 30243N1 Transfusion of Nonautologous Red Blood Cells into Central Vein, Percutaneous Approach (ICD-10-PCS; principal; 2017-10-09)
PROC: 3E043GC Introduction of Other Therapeutic Substance into Central Vein, Percutaneous Approach (ICD-10-PCS; 2017-10-09)
DX: D64.9 Anemia, unspecified (principal)
CPT/HCPCS: 86900; 86901; 36415; 36430; 86850; 86920; P9016; A9270 ×2; J1940; 96374; J1642

== ENCOUNTER → 2017-11-27 | Outpatient (CLI) | payer MEDICARE, BC ==
--- NOTE | 2017-11-27 14:47 | RADIOLOGY REPORT (SQ) ---
EXAM DESCRIPTION: CT CHEST WITHOUT; CT ABD/PELVIS NO ORAL OR IV COMPLETED DATE/TIME: 11/27/2017 2:05 pm REASON FOR STUDY: MAL THIERRY OF KIDNEY, EXCEPT PELVIS C64.1 MALIGNANT NEOPLASM OF RIGHT KIDNEY, EXCEPT RENAL PELVI COMPARISON: CT chest abdomen pelvis 08/22/2017, 05/31/2017 TECHNIQUE: CT scan of the chest performed without intravenous contrast using helical scanning techni que. Images reviewed with lung, soft tissue and bone windows. Reconstructed coronal and sagittal MPR images reviewed. All images stored on PACS. CT scan of the abdomen and pelvis performed without intravenous contrast and withoutoral contrast usi ng helical scanning technique with dynamic intravenous contrast injection. Images reviewed with lung , soft tissue and bone windows. Reconstructed coronal and sagittal MPR images reviewed. All images stored on PACS. All CT scanners at this facility use dose modulation, iterative reconstruction, and/or weight based d osing when appropriate to reduce radiation dose to as low as reasonably achievable (ALARA). [facility]: Dose Right [facility]: CareDose [facility]: Dose Right [facility]: Teradose 4D [facility]: [employer] RADIATION DOSE: CT Rad equipment meets quality standard of care and radiation dose reduction techniq ues were employed. CTDIvol: 4.4 - 4.8 mGy. DLP: 410 mGy-cm. mGy. LIMITATIONS: No technical limitations. FINDINGS: CHEST: AXILLAE: No adenopathy. CHEST WALL: No masses. No subcutaneous air. LUNGS: Tiny bandlike scar in the right lower lobe is present on image 76, the nodule seen in the righ t posterior lower lobe 05/20/2017 has resolved. No focal infiltrates. No worrisome pulmonary nodules. No pleural effusion or pneumothorax. PLEURA: No effusions. No calcifications. THYROID: No masses or significant asymmetry. HILAR AND MEDIASTINAL STRUCTURES: Further decrease in size of a partially calcified pretracheal lymph node currently 2.2 x 2.1 cm in size (was 2.6 x 2.6 cm in size on 08/22/2017). AORTA AND GREAT VESSELS: No aneurysm. HEART: No pericardial effusion. Minimal coronary artery calcification. HARDWARE AND LIFELINES: Right-sided permanent central line tip superior vena cava BONES: No significant finding. OTHER: No other significant finding. ABDOMEN AND PELVIS: LIVER: Normal size. No masses. No dilated ducts. SPLEEN: Normal size. No focal lesions. PANCREAS: No masses. No significant calcifications. No adjacent inflammation or peripancreatic flui d collections. Pancreatic duct not dilated. GALLBLADDER: Post cholecystectomy ADRENAL GLANDS: Post right adrenalectomy. Left adrenal gland unremarkable RIGHT KIDNEY AND URETER: Post right nephrectomy. No recurrent soft tissue mass in the right renal fo ssa. LEFT KIDNEY AND URETER: No solid masses. Assessment limited by lack of IV contrast. 2 mm left midpo le intrarenal nonobstructive stone. No hydronephrosis or hydroureter. AORTA AND VESSELS: Heavily calcified abdominal aorta without calcified aneurysm. Left renal artery s tent present RETROPERITONEUM: No retroperitoneal adenopathy, hemorrhage or masses. APPENDIX: Surgically absent LARGE AND SMALL BOWEL: No dilatation. No masses. No wall thickening. ABDOMINAL WALL: No hernia or masses. PERITONEAL CAVITY: No free air. No free fluid. No peritoneal implants or masses. PELVIS: No mass or free fluid. Normal bladder. Post cholecystectomy BONES: No significant or acute findings. OTHER: No other significant finding. IMPRESSION: Minimal right lower lobe scar in an area of prior metastatic nodule. Decrease in size o f pretracheal lymph node. The Post right nephrectomy/adrenalectomy, cholecystectomy, appendectomy, hysterectomy. TECHNICAL DOCUMENTATION: JOB ID: [id number] Quality ID # 436: Final reports with documentation of one or more dose reduction techniques (e.g., Au tomated exposure control, adjustment of the mA and/or kV according to patient size, use of iterative reconstruction technique) 2010 [employer]- All Rights Reserved Reading location - IP/workstation name: [email or web address]
--- NOTE | 2017-11-27 14:47 | RADIOLOGY REPORT (SQ) ---
EXAM DESCRIPTION: CT CHEST WITHOUT; CT ABD/PELVIS NO ORAL OR IV COMPLETED DATE/TIME: 11/27/2017 2:05 pm REASON FOR STUDY: MAL THIERRY OF KIDNEY, EXCEPT PELVIS C64.1 MALIGNANT NEOPLASM OF RIGHT KIDNEY, EXCEPT RENAL PELVI COMPARISON: CT chest abdomen pelvis 08/22/2017, 05/31/2017 TECHNIQUE: CT scan of the chest performed without intravenous contrast using helical scanning techni que. Images reviewed with lung, soft tissue and bone windows. Reconstructed coronal and sagittal MPR images reviewed. All images stored on PACS. CT scan of the abdomen and pelvis performed without intravenous contrast and withoutoral contrast usi ng helical scanning technique with dynamic intravenous contrast injection. Images reviewed with lung , soft tissue and bone windows. Reconstructed coronal and sagittal MPR images reviewed. All images stored on PACS. All CT scanners at this facility use dose modulation, iterative reconstruction, and/or weight based d osing when appropriate to reduce radiation dose to as low as reasonably achievable (ALARA). [facility]: Dose Right [facility]: CareDose [facility]: Dose Right [facility]: Teradose 4D [facility]: [employer] RADIATION DOSE: CT Rad equipment meets quality standard of care and radiation dose reduction techniq ues were employed. CTDIvol: 4.4 - 4.8 mGy. DLP: 410 mGy-cm. mGy. LIMITATIONS: No technical limitations. FINDINGS: CHEST: AXILLAE: No adenopathy. CHEST WALL: No masses. No subcutaneous air. LUNGS: Tiny bandlike scar in the right lower lobe is present on image 76, the nodule seen in the righ t posterior lower lobe 05/20/2017 has resolved. No focal infiltrates. No worrisome pulmonary nodules. No pleural effusion or pneumothorax. PLEURA: No effusions. No calcifications. THYROID: No masses or significant asymmetry. HILAR AND MEDIASTINAL STRUCTURES: Further decrease in size of a partially calcified pretracheal lymph node currently 2.2 x 2.1 cm in size (was 2.6 x 2.6 cm in size on 08/22/2017). AORTA AND GREAT VESSELS: No aneurysm. HEART: No pericardial effusion. Minimal coronary artery calcification. HARDWARE AND LIFELINES: Right-sided permanent central line tip superior vena cava BONES: No significant finding. OTHER: No other significant finding. ABDOMEN AND PELVIS: LIVER: Normal size. No masses. No dilated ducts. SPLEEN: Normal size. No focal lesions. PANCREAS: No masses. No significant calcifications. No adjacent inflammation or peripancreatic flui d collections. Pancreatic duct not dilated. GALLBLADDER: Post cholecystectomy ADRENAL GLANDS: Post right adrenalectomy. Left adrenal gland unremarkable RIGHT KIDNEY AND URETER: Post right nephrectomy. No recurrent soft tissue mass in the right renal fo ssa. LEFT KIDNEY AND URETER: No solid masses. Assessment limited by lack of IV contrast. 2 mm left midpo le intrarenal nonobstructive stone. No hydronephrosis or hydroureter. AORTA AND VESSELS: Heavily calcified abdominal aorta without calcified aneurysm. Left renal artery s tent present RETROPERITONEUM: No retroperitoneal adenopathy, hemorrhage or masses. APPENDIX: Surgically absent LARGE AND SMALL BOWEL: No dilatation. No masses. No wall thickening. ABDOMINAL WALL: No hernia or masses. PERITONEAL CAVITY: No free air. No free fluid. No peritoneal implants or masses. PELVIS: No mass or free fluid. Normal bladder. Post cholecystectomy BONES: No significant or acute findings. OTHER: No other significant finding. IMPRESSION: Minimal right lower lobe scar in an area of prior metastatic nodule. Decrease in size o f pretracheal lymph node. The Post right nephrectomy/adrenalectomy, cholecystectomy, appendectomy, hysterectomy. TECHNICAL DOCUMENTATION: JOB ID: [id number] Quality ID # [id number]: Final reports with documentation of one or more dose reduction techniques (e.g., Au tomated exposure control, adjustment of the mA and/or kV according to patient size, use of iterative reconstruction technique) 2010 [employer]- All Rights Reserved Reading location - IP/workstation name: [facility]
== END ==
LOC: RAD 13:51
PROVIDERS: ATTEND Physician Assistant Medical
DX: C64.1 Malignant neoplasm of right kidney, except renal pelvis (principal)
CPT/HCPCS: 71250; 74176

== ENCOUNTER 2018-01-26 08:47 | Outpatient (CLI) | payer MEDICARE, BC ==
[2018-01-26] MEDS ORDERED: MAGNESIUM SULFATE 4 GM/D5W 100 ML IV PRN (08:51)
[2018-01-26] MEDS ORDERED: NORMAL SALINE 250 ML IV PRN (08:51)
[2018-01-26 09:09] VITALS: BP 153/80
== END 2018-01-26 13:48 | disposition home or self-care (01) ==
LOC: II 08:47 → 5TH 08:51 → II 13:48
PROVIDERS: ATTEND Internal Medicine
PROC: 3E043GC Introduction of Other Therapeutic Substance into Central Vein, Percutaneous Approach (ICD-10-PCS; principal; 2018-01-26)
DX: E83.42 Hypomagnesemia (principal)
CPT/HCPCS: 96365; 96366; 96374; J3475

== ENCOUNTER → 2018-02-26 | Outpatient (CLI) | payer MEDICARE, BC ==
[2018-02-26 17:33] LABS: ABSOLUTE EOSINOPHILS # (AUTO) 0.2 10^3/uL (0.0-0.6); ABSOLUTE LYMPHOCYTES (AUTO) 2.2 10^3/uL (0.5-4.7); ABSOLUTE MONOCYTES (AUTO) 0.4 10^3/uL (0.1-1.4); BASOPHILS % (AUTO) 0.6 % (0-2); EOSINOPHILS % (AUTO) 2.7 % (0-6); HEMATOCRIT 33.1 % (36.0-47.0); HEMOGLOBIN 11.4 g/dL (12.0-15.5); LYMPHOCYTES % (AUTO) 37.7 % (13-45); MEAN CORPUSCULAR HGB CONC 34.5 g/dL (32.0-36.0); MEAN CORPUSCULAR VOLUME 90 fl (80-97); MONOCYTES % (AUTO) 6.2 % (3-13); PLATELET COUNT 115 10^3/uL (150-450); RED BLOOD COUNT 3.68 10^6/uL (3.72-5.28); RED CELL DISTRIBUTION WIDTH 15.3 % (11.5-14.0); SEGMENTED NEUTROPHILS % (AUTO) 52.8 % (42-78); TOTAL CELLS COUNTED % (AUTO) 100 %; WHITE BLOOD COUNT 5.7 10^3/uL (4.0-10.5)
== END ==
LOC: OD 16:22
PROVIDERS: ATTEND Internal Medicine Nephrology
DX: D50.9 Iron deficiency anemia, unspecified (principal)
CPT/HCPCS: 36415; 85025

== ENCOUNTER → 2018-03-05 | Outpatient (CLI) | payer MEDICARE, BC ==
--- NOTE | 2018-03-05 09:44 | RADIOLOGY REPORT (SQ) ---
EXAM DESCRIPTION: CT CHEST WITHOUT; CT ABD/PELVIS NO ORAL OR IV COMPLETED DATE/TIME: 03/05/2018 8:57 am REASON FOR STUDY: KIDNEY CA (C64.1) C64.1 MALIGNANT NEOPLASM OF RIGHT KIDNEY, EXCEPT RENAL PELVI COMPARISON: PET-CT 06/10/2016 CT chest abdomen and pelvis 03/24/2017, 05/31/2017, 08/22/2017, 11/27/2017 TECHNIQUE: CT scan of the chest performed without intravenous contrast using helical scanning techni que. Images reviewed with lung, soft tissue and bone windows. Reconstructed coronal and sagittal MPR images reviewed. All images stored on PACS. CT scan of the abdomen and pelvis performed without intravenous contrast and withoutoral contrast usi ng helical scanning technique with dynamic intravenous contrast injection. Images reviewed with lung , soft tissue and bone windows. Reconstructed coronal and sagittal MPR images reviewed. All images stored on PACS. All CT scanners at this facility use dose modulation, iterative reconstruction, and/or weight based d osing when appropriate to reduce radiation dose to as low as reasonably achievable (ALARA). [facility]: Dose Right [facility]: CareDose [facility]: Dose Right [facility]: Teradose 4D [facility]: [employer] RADIATION DOSE: CT Rad equipment meets quality standard of care and radiation dose reduction techniq ues were employed. CTDIvol: 4.7 - 6.3 mGy. DLP: 488 mGy-cm. mGy. LIMITATIONS: No technical limitations. FINDINGS: CHEST: AXILLAE: No adenopathy. CHEST WALL: No masses. No subcutaneous air. LUNGS: There is minimal scarring in the right posterior costophrenic sulcus on axial image 82 in the area of prior metastatic nodule seen on PET-CT 04/09/2017. No worrisome pulmonary nodules. No acute infiltrates. No pleural effusion. No pneumothorax. PLEURA: No effusions. No calcifications. THYROID: No masses or significant asymmetry. HILAR AND MEDIASTINAL STRUCTURES: Pretracheal partially calcified lymph node on today's study 1.9 x 1 .5 cm in size (was 2.3 x 2.1 cm on 11/27/2017, was 4.3 x 3.7 cm in size on PET-CT 06/10/2016). AORTA AND GREAT VESSELS: No aneurysm. HEART: No pericardial effusion. HARDWARE AND LIFELINES: Right permanent central line tip superior vena cava BONES: No significant finding. OTHER: No other significant finding. ABDOMEN AND PELVIS: LIVER: Normal size. No masses. No dilated ducts. SPLEEN: Normal size. No focal lesions. PANCREAS: No masses. No significant calcifications. No adjacent inflammation or peripancreatic flui d collections. Pancreatic duct not dilated. GALLBLADDER: Surgically absent ADRENAL GLANDS: Right adrenalectomy. Left adrenal gland unremarkable RIGHT KIDNEY AND URETER: Post nephrectomy for renal cell malignancy LEFT KIDNEY AND URETER: No solid masses. Assessment limited by lack of IV contrast. No significant ca lcification. No hydronephrosis or hydroureter. AORTA AND VESSELS: No aneurysm. RETROPERITONEUM: No retroperitoneal adenopathy, hemorrhage or masses. APPENDIX: Surgically absent LARGE AND SMALL BOWEL: No dilatation. No masses. No wall thickening. ABDOMINAL WALL: No hernia or masses. PERITONEAL CAVITY: No free air. No free fluid. No peritoneal implants or masses. PELVIS: No mass or free fluid. Normal bladder. Post hysterectomy BONES: No significant or acute findings. OTHER: No other significant finding. IMPRESSION: Post right nephrectomy and adrenalectomy. Post cholecystectomy appendectomy and hystere ctomy. Minimal bandlike scar right posterior lung base in an area of metastatic disease identified on PET-CT 06/10/2016. Further decrease in size of pretracheal partially calcified lymph node as compared to previous exams. NORMAL CT OF THE ABDOMEN AND PELVIS WITHOUT INTRAVENOUS CONTRAST. TECHNICAL DOCUMENTATION: JOB ID: [id number] Quality ID # [id number]: Final reports with documentation of one or more dose reduction techniques (e.g., Au tomated exposure control, adjustment of the mA and/or kV according to patient size, use of iterative reconstruction technique) 2010 [employer]- All Rights Reserved Reading location - IP/workstation name: [email or web address]
== END ==
LOC: RAD 08:30
PROVIDERS: ATTEND Internal Medicine
DX: C64.1 Malignant neoplasm of right kidney, except renal pelvis (principal)
CPT/HCPCS: 71250; 74176

== ENCOUNTER 2018-03-15 18:07 | Emergency (ER) | payer MEDICARE, BC ==
--- NOTE | 2018-03-15 19:10 | RADIOLOGY REPORT (SQ) ---
EXAM DESCRIPTION: CT HEAD WITHOUT COMPLETED DATE/TIME: 03/15/2018 6:56 pm REASON FOR STUDY: elderly, fall COMPARISON: 05/29/2017. TECHNIQUE: Axial images acquired through the brain without intravenous contrast. Images reviewed wi th bone, brain and subdural windows. Images stored on PACS. All CT scanners at this facility use dose modulation, iterative reconstruction, and/or weight based d osing when appropriate to reduce radiation dose to as low as reasonably achievable (ALARA). [facility]: Dose Right [facility]: SureCare [facility]: Dose Right [facility]: Teradose 4D [facility]: [employer] RADIATION DOSE: CT Rad equipment meets quality standard of care and radiation dose reduction techniq ues were employed. CTDIvol: 53.2 mGy. DLP: 944 mGy-cm. mGy. LIMITATIONS: None. FINDINGS: VENTRICLES: Normal size and contour. CEREBRUM: No mass effect. No hemorrhage. No midline shift. Normal khanna/white matter differentiatio n. No evidence for acute territorial infarction. CEREBELLUM: No mass effect. No hemorrhage. No alteration of density. No evidence for acute infarct ion. EXTRAAXIAL SPACES: No fluid collections. ORBITS AND GLOBE: Symmetrical contour of the globes. CALVARIUM: No depressed skull fracture. PARANASAL SINUSES: No air-fluid level. SOFT TISSUES: No hematoma. IMPRESSION: No acute intracranial hemorrhage or acute territorial infarct. TECHNICAL DOCUMENTATION: JOB ID: [id number] [facility] [facility] [id number]: Final reports with documentation of one or more dose reduction techniques (e.g., Automate d exposure control, adjustment of the mA and/or kV according to patient size, use of iterative recons truction technique) 2010 [employer]- All Rights Reserved Reading location - IP/workstation name: [facility] [email or web address]
[2018-03-15] MEDS ORDERED: LIDOCAINE 4% TRANSPARENT DRESSING 5 GM KIT TP ONE (19:58)
[2018-03-15] MEDS ORDERED: DIPH/PERTUSS(ACELL)/TETANUS VAC/PF 0.5 ML SYR (>=10YO) IM ONE (19:59)
[2018-03-15] MEDS ORDERED: LIDOCAINE 1%/EPINEPHRINE INJ 20 ML VIAL INJ ONE (19:59)
--- NOTE | 2018-03-15 20:01 | RADIOLOGY REPORT (SQ) ---
EXAM DESCRIPTION: CT CERVICAL SPINE WITHOUT COMPLETED DATE/TIME: 03/15/2018 7:50 pm REASON FOR STUDY: elderly, fall COMPARISON: None. TECHNIQUE: Axial images acquired through the cervical spine without intravenous contrast. Images re viewed with lung, soft tissue and bone windows. Reconstructed coronal and sagittal MPR images review ed. Images stored on PACS. All CT scanners at this facility use dose modulation, iterative reconstruction, and/or weight based d osing when appropriate to reduce radiation dose to as low as reasonably achievable (ALARA). [facility]: Dose Right [facility]: CareDose [facility]: Dose Right [facility]: Teradose 4D [facility]: Smart Technologies RADIATION DOSE: CT Rad equipment meets quality standard of care and radiation dose reduction techniq ues were employed. CTDIvol: 18.2 mGy. DLP: 338 mGy-cm. mGy. LIMITATIONS: None. FINDINGS: ALIGNMENT: Anatomic. MINERALIZATION: Normal. VERTEBRAL BODIES: No fractures or dislocation. DISCS: Multilevel disc space narrowing with osteophytes. FACETS, LATERAL MASSES, POSTERIOR ELEMENTS: Facet arthropathy. No fractures. No dislocation. No ac [place] findings. HARDWARE: None in the spine. VISUALIZED RIBS: No fractures. LUNG APICES AND SOFT TISSUES: No significant or acute findings. OTHER: No other significant finding. IMPRESSION: CHRONIC DEGENERATIVE CHANGES. NO ACUTE FINDINGS. TECHNICAL DOCUMENTATION: JOB ID: [id number] Quality ID # [id number]: Final reports with documentation of one or more dose reduction techniques (e.g., Au tomated exposure control, adjustment of the mA and/or kV according to patient size, use of iterative reconstruction technique) 2010 [employer]- All Rights Reserved Reading location - IP/workstation name: [email or web address]
--- NOTE | 2018-03-15 20:13 | ER Document Report ---
ED General - General Chief Complaint: Head Injury Stated Complaint: FALL/HEAD PAIN Time Seen by Provider: 03/15/18 18:27 Notes: Patient is an 83-year-old patient who presents after a mechanical trip and fall in which she struck her right scalp on a door jam. The patient states that she was walking in the dark, reached for her chair but she had walked too far, this caused her to lose her balance, falling forward and striking the right side of her head on the edge of a door. She states that she began bleeding from the area which stopped after she applied direct pressure. She notes a dull, throbbing, constant pain to the area of the laceration. Nothing improves or worsens this pain. She denies loss of consciousness, vomiting, weakness, numbness or confusion since that time. No injury to any other location. She does take aspirin daily. She has not seen her general doctor regarding today's concerns. TRAVEL OUTSIDE OF THE [place] IN LAST 30 DAYS: No - Related Data Allergies/Adverse Reactions: DENZEL Inhibitors [Denzel Inhibitors] Allergy (Verified 03/15/18 18:12) ACEINHIBITORS [DENZEL Inhibitors] Allergy (Verified 03/15/18 18:12) amlodipine besylate [From Norvasc] Allergy (Verified 03/15/18 18:12) exenatide [From Byetta] Allergy (Verified 03/15/18 18:12) Iodinated Contrast- Oral and IV Dye [IV Dye, Iodine Containing] Allergy ( Verified 03/15/18 18:12) metformin [Metformin] Allergy (Verified 03/15/18 18:12) morphine [Morphine] Allergy (Verified 03/15/18 18:12) nitrofurantoin [From Macrobid] Allergy (Verified 03/15/18 18:12) nitrofurantoin macrocrystalline [From Macrobid] Allergy (Verified 03/15/18 18:12 ) Past Medical History - General Information source: Patient - Social History Smoking Status: Never Smoker Chew tobacco use (# tins/day): No Frequency of alcohol use: None Drug Abuse: None Lives with: Family Family History: Reviewed & Not Pertinent, CVA Patient has suicidal ideation: No Patient has homicidal ideation: No - Past Medical History Cardiac Medical History: Reports: Hx DVT, Hx Hypercholesterolemia, Hx Hypertension Denies: Hx Coronary Artery Disease, Hx Heart Attack Pulmonary Medical History: Denies: Hx Asthma, Hx Bronchitis, Hx COPD, Hx Pneumonia Neurological Medical History: Reports: Hx Migraine. Denies: Hx Cerebrovascular Accident, Hx Seizures Endocrine Medical History: Reports: Hx Diabetes Mellitus Type 2, Hx Hypothyroidism Renal/ Medical History: Reports: Hx Renal Insufficiency. Denies: Hx Peritoneal Dialysis Malignancy Medical History: Reports: Hx Renal (Kidney) Cancer GI Medical History: Reports: Hx Gastroesophageal Reflux Disease, Hx Irritable Bowel. Denies: Hx Hepatitis, Hx Hiatal Hernia, Hx Ulcer Musculoskeletal Medical History: Reports Hx Arthritis, Reports Hx Gout, Reports Hx Muscle Spasm Psychiatric Medical History: Reports: Hx Depression Infectious Medical History: Denies: Hx Hepatitis Past Surgical History: Reports: Hx Appendectomy, Hx Section, Hx Cholecystectomy, Hx Genitourinary Surgery - right nephrectomy, Hx Kidney (Renal Surgery) - Right nephrectomy for renal cell carcinoma, Hx Thyroid Surgery - thyroidectomy. Denies: Hx Mastectomy, Hx Open Heart Surgery, Hx Pacemaker - Immunizations Hx Diphtheria, Pertussis, Tetanus Vaccination: No Review of Systems - Review of Systems Notes: Constitutional: Negative for fever. Eyes: Negative for visual changes. ENT: Negative for facial injury Cardiovascular: Negative for chest injury. Respiratory: Negative for shortness of breath. Gastrointestinal: Negative for abdominal injury. Genitourinary: Negative for genital injury Musculoskeletal: Negative for back injury. Skin: Positive for laceration/abrasions. Neurological: Positive for head injury. Physical Exam - Vital signs Vitals: Temp Pulse Resp BP Pulse Ox 98.4 F 72 16 165/63 H 98 03/15/18 18:18 03/15/18 18:18 03/15/18 18:18 03/15/18 18:18 03/15/18 18:18 Interpretation: Normal Notes: PHYSICAL EXAMINATION: GENERAL: Well-appearing, no acute distress. HEAD: Soft tissue swelling and associated laceration as described below to the right parietal scalp, normocephalic. EYES: Pupils equal round and reactive to light, extraocular movements intact, sclera anicteric, conjunctiva are normal. ENT: nares patent, no oral pharyngeal trauma. No hemotympanum, no Chris's sign , no raccoon eyes. NECK: No midline cervical spine tenderness. Patient able to move their head to 45 bilaterally without any discomfort. LUNGS: Breath sounds clear to auscultation bilaterally and equal. No wheezes rales or rhonchi. HEART: Regular rate and rhythm without murmurs. CHEST WALL: No ecchymosis over the chest wall. ABDOMEN: Soft, nontender, normoactive bowel sounds. No guarding, no rebound. No abdominal bruising EXTREMITIES: Normal range of motion, no pitting or edema. No long bone deformities. BACK: No midline spinal tenderness, step-offs, or deformities. NEUROLOGICAL: Face symmetric. Tongue protrudes midline. Extraocular motions intact. Pupils are 2 mm and equally reactive. Normal speech, normal gait. 5 out of 5 strength in both the distal and proximal upper and lower extremities bilaterally. Sensation is grossly intact throughout. PSYCH: Normal mood, normal affect. SKIN: Warm, Dry, normal turgor, there is a 7.5 cm laceration to the right parietal scalp Course - Re-evaluation Re-evalutation: 03/15/18 20:16 Presentation of a well appearing elderly patient in no acute distress, vitals within normal limits after a mechanical fall. Patient denies a syncopal episode as the cause for today's fall. No focal neurologic deficits on exam, no evidence of basilar skull fracture on exam without evidence of hemotympanum, raccoon eyes, or periauricular hematoma. No papilledema. Patient is not on anticoagulation. GCS is 15. No loss of consciousness. No episodes of vomiting. However, based on patient's age a CT of the head has been obtained which is negative for any acute intracranial bleed. Likewise, patient was unable to be clinically cleared due to age by Foley cervical spine criteria. A CT of the cervical spine was also obtained and likewise is negative for any acute fracture. No indication for further imaging of the cervical spine. Patient has no focal deformities or limited range of motion in any joint space. Chest and abdominal exam are benign without any focal tenderness, shortness of breath, or bruising over the chest or abdominal wall. Patient has no flank tenderness. There is no obvious findings on trauma exam today and therefore no further imaging or evaluation will be obtained at this time. Patient did have a 7.5 cm laceration over her right parietal scalp which was cleaned, irrigated, prepped with L-M-X for pain control. Explored for any evidence of foreign body. This was closed with cj without complication. Tetanus is also been updated. At this time will discharge with return precautions and follow-up recommendations. Verbal discharge instructions given a the bedside and opportunity for questions given. Medication warnings reviewed. Patient is in agreement with this plan and has verbalized understanding of return precautions and the need for primary care follow-up in the next 24-72 hours. - Vital Signs Vital signs: Temp Pulse Resp BP Pulse Ox 99 F 72 18 157/63 H 95 03/15/18 21:37 03/15/18 21:37 03/15/18 21:37 03/15/18 21:37 03/15/18 21:37 - Diagnostic Test Radiology reviewed: Image reviewed, Reports reviewed Radiology results interpreted by me: 03/15/18 20:17 CT head: No acute intracranial bleed or mass Procedures - Laceration/Wound Repair Head Wound length (cm): 7.5 Wound's Depth, Shape: Superficial Laceration pre-procedure: Sterile PPE donned Anesthetic type: 1% Lidocaine Volume Anesthetic (mLs): 5 Wound explored: Clean Irrigated w/ Saline (mLs): 500 Wound Debrided: Moderate Wound Repaired With: Lyon Number of Sutures: 5 - Cj Layer Closure?: No Post-procedure wound care: Sterile dressing applied Post-procedure NV exam normal: Yes Complications: No Discharge - Discharge Clinical Impression: Fall Qualifiers: Encounter type: initial encounter Qualified Code(s): W19.XXXA - Unspecified fall, initial encounter Head trauma Qualifiers: Encounter type: initial encounter Qualified Code(s): S09.90XA - Unspecified injury of head, initial encounter Scalp laceration Qualifiers: Encounter type: initial encounter Qualified Code(s): S01.01XA - Laceration without foreign body of scalp, initial encounter Condition: Good Disposition: HOME, SELF-CARE Additional Instructions: You have been seen in the Emergency Department (ED) today following a fall. Your workup today did not reveal any injuries that require you to stay in the hospital. You can expect, though, to be stiff and sore for the next several days. You can take Tylenol 1000 mg every 6 hours as needed for pain. You can apply a hot pack or electric heating pad to the sore areas. You can also use topical "Aspercreme with lidocaine" to sore areas as needed. Please follow up with your primary care doctor as soon as possible regarding today's ED visit and your recent fall. Call your doctor or return to the ED if you develop a sudden or severe headache , confusion, slurred speech, facial droop, weakness or numbness in any arm or leg, extreme fatigue, vomiting more than two times, severe abdominal pain, or other symptoms that concern you. Please return to your primary doctor, the ED, or an urgent care in 7 days for staple removal. Return immediately if you develop spreading redness around the wound, pus from the wound, worsening pain, or a fever of >100.4. Keep the area clean and dry. Wash gently with soap and water twice daily and cover with antibiotic ointment. Referrals: BERTHA NIELSON PA-C [Primary Care Provider] - Follow up as needed
[2018-03-15 21:44] VITALS: BP 157/63
== END 2018-03-15 21:37 | disposition home or self-care (01) ==
LOC: ER 18:07
DX: S01.01XA Laceration without foreign body of scalp, initial encounter (principal); R51 Headache; W01.198A Fall on same level from slipping, tripping and stumbling with subsequent striking against other object, initial encounter; Y93.89 Activity, other specified; E11.9 Type 2 diabetes mellitus without complications; I10 Essential (primary) hypertension; Z23 Encounter for immunization; Z88.8 Allergy status to other drugs, medicaments and biological substances; Z91.041 Radiographic dye allergy status; Z88.5 Allergy status to narcotic agent; Z88.1 Allergy status to other antibiotic agents; Z85.528 Personal history of other malignant neoplasm of kidney
CPT/HCPCS: 99283; 90471; 70450; 72125; 90715; 12002; J3490 ×2

== ENCOUNTER → 2018-05-22 | Outpatient (CLI) | payer MEDICARE, BC ==
[2018-05-22 10:02] LABS: URINE CREATININE 106.4 mg/dL (15-278); URINE PROTEIN 109.9 mg/dL (<12)
[2018-05-22 10:06] LABS: ANION GAP 10 (5-19); BLOOD UREA NITROGEN 43 mg/dL (7-20); CALCIUM 10.6 mg/dL (8.4-10.2); CARBON DIOXIDE 29 mmol/L (22-30); CHLORIDE 102 mmol/L (98-107); GLUCOSE 56 mg/dL (75-110); POTASSIUM 4.5 mmol/L (3.6-5.0)
[2018-05-22 10:13] LABS: HEMATOCRIT 29.3 % (36.0-47.0); MEAN CORPUSCULAR HEMOGLOBIN 30.6 pg (27.0-33.4); MEAN CORPUSCULAR HGB CONC 34.3 g/dL (32.0-36.0); MEAN CORPUSCULAR VOLUME 89 fl (80-97); RED BLOOD COUNT 3.28 10^6/uL (3.72-5.28); RED CELL DISTRIBUTION WIDTH 16.8 % (11.5-14.0); WHITE BLOOD COUNT 7.4 10^3/uL (4.0-10.5)
[2018-05-22 10:32] LABS: PLATELET COUNT 108 10^3/uL (150-450)
[2018-05-22 10:36] LABS: ABSOLUTE LYMPHOCYTES# (MANUAL) 2.1 10^3/uL (0.5-4.7); ABSOLUTE MONOCYTES # (MANUAL) 0.2 10^3/uL (0.1-1.4); ABSOLUTE NEUTROPHILS# (MANUAL) 4.7 10^3/uL (1.7-8.2); BASOPHILS % (MANUAL) 0 % (0-2); EOSINOPHILS % (MANUAL) 5 % (0-6); LYMPHOCYTES % (MANUAL) 29 % (13-45); MONOCYTES % (MANUAL) 3 % (3-13); SEGMENTED NEUTROPHILS % (MAN) 63 % (42-78); TOTAL CELLS COUNTED 100
[2018-05-22 10:37] LABS: ANISOCYTOSIS 1+; HYPOCHROMASIA SLIGHT; PLATELET CLUMPS PRESENT; POLYCHROMASIA SLIGHT; TOXIC GRANULATION 1+
[2018-05-22 10:38] LABS: OVALOCYTES SLIGHT; POIKILOCYTOSIS SLIGHT
== END ==
LOC: OD 08:52
PROVIDERS: ATTEND Internal Medicine Nephrology
DX: I12.9 Hypertensive chronic kidney disease with stage 1 through stage 4 chronic kidney disease, or unspecified chronic kidney disease (principal); N18.4 Chronic kidney disease, stage 4 (severe); E11.22 Type 2 diabetes mellitus with diabetic chronic kidney disease
CPT/HCPCS: 36415; 80048; 82570; 83970; 84156; 85025

== ENCOUNTER → 2018-06-05 | Outpatient (CLI) | payer MEDICARE, BC ==
--- NOTE | 2018-06-05 10:16 | RADIOLOGY REPORT (SQ) ---
EXAM DESCRIPTION: CT CHEST WITHOUT COMPLETED DATE/TIME: 06/05/2018 9:03 am REASON FOR STUDY: KIDNEY CA (C64.1) C64.1 MALIGNANT NEOPLASM OF RIGHT KIDNEY, EXCEPT RENAL PELVI COMPARISON: 03/05/2018 TECHNIQUE: CT scan performed of the chest without intravenous contrast. Images reviewed with lung, soft tissue and bone windows. Reconstructed coronal and sagittal MPR images reviewed. All images st ored on PACS. All CT scanners at this facility use dose modulation, iterative reconstruction, and/or weight based d osing when appropriate to reduce radiation dose to as low as reasonably achievable (ALARA). [facility]: Dose Right [facility]: CareDose [facility]: Dose Right [facility]: Teradose 4D [facility]: [employer] RADIATION DOSE: mGy. LIMITATIONS: No technical limitations. FINDINGS: LUNGS AND PLEURA: Stable area of scarring in the right posterior costophrenic sulcus same area of hypermetabolic nodule seen on PET 06/10/2016. Patchy ground-glass attenuation in the lower lo bes, right greater than left most likely atelectasis. No developing nodules. No effusions. HILAR AND MEDIASTINAL STRUCTURES: Stable calcified pretracheal node. HEART AND VASCULAR STRUCTURES: No aneurysm. No pericardial effusion. UPPER ABDOMEN: No significant findings. Limited exam. THYROID AND OTHER SOFT TISSUES: No masses. No adenopathy. BONES: Nothing acute. HARDWARE: None in the chest. OTHER: No other significant findings. IMPRESSION: Stable appearance of the chest. TECHNICAL DOCUMENTATION: JOB ID: [id number] Quality ID # [id number]: Final reports with documentation of one or more dose reduction techniques (e.g., Au tomated exposure control, adjustment of the mA and/or kV according to patient size, use of iterative reconstruction technique) 2010 [employer]- All Rights Reserved Reading location - IP/workstation name: [email or web address]
--- NOTE | 2018-06-05 10:26 | RADIOLOGY REPORT (SQ) ---
EXAM DESCRIPTION: CT ABD/PELVIS NO ORAL OR IV COMPLETED DATE/TIME: 06/05/2018 9:03 am REASON FOR STUDY: KIDNEY CA (C64.1) C64.1 MALIGNANT NEOPLASM OF RIGHT KIDNEY, EXCEPT RENAL PELVI COMPARISON: 03/05/2018 TECHNIQUE: CT scan of the abdomen and pelvis performed without intravenous or oral contrast. Images reviewed with lung, soft tissue, and bone windows. Reconstructed coronal and sagittal MPR images revi ewed. All images stored on PACS. All CT scanners at this facility use dose modulation, iterative reconstruction, and/or weight based d osing when appropriate to reduce radiation dose to as low as reasonably achievable (ALARA). [facility]: Dose Right [facility]: CareDose [facility]: Dose Right [facility]: Teradose 4D [facility]: [employer] RADIATION DOSE: CT Rad equipment meets quality standard of care and radiation dose reduction techniq ues were employed. CTDIvol: 4.5 - 5.3 mGy. DLP: 435 mGy-cm.mGy. LIMITATIONS: None. FINDINGS: LOWER CHEST: See separate report of the CT of the chest. NON-CONTRASTED LIVER, SPLEEN, ADRENALS: Status post right adrenalectomy. Normal left adrenal. PANCREAS: No masses. No peripancreatic inflammatory changes. GALLBLADDER: Surgically absent. RIGHT KIDNEY AND URETER: Right nephrectomy. LEFT KIDNEY AND URETER: No suspicious masses. Assessment limited by lack of IV contrast. No signifi cant calcifications. No hydronephrosis or hydroureter. AORTA AND RETROPERITONEUM: Ectasia. No aneurysm. BOWEL AND PERITONEAL CAVITY: Sigmoid diverticulosis. No obvious masses or inflammatory changes. No f ree fluid. APPENDIX: Surgically absent. PELVIS, BLADDER, AND ABDOMINAL WALL:No abnormal masses. No free fluid. Bladder normal. BONES: Nothing acute. OTHER: No other significant finding. IMPRESSION: No evidence of local recurrence or metastatic disease. COMMENT: Quality ID # 436: Final reports with documentation of one or more dose reduction techniques (e.g., Automated exposure control, adjustment of the mA and/or kV according to patient size, use of iterative reconstruction technique) TECHNICAL DOCUMENTATION: JOB ID: [id number] [employer]- All Rights Reserved Reading location - IP/workstation name: [email or web address]-
== END ==
LOC: RAD 08:47
PROVIDERS: ATTEND Internal Medicine
DX: C64.1 Malignant neoplasm of right kidney, except renal pelvis (principal)
CPT/HCPCS: 71250; 74176

== ENCOUNTER → 2018-08-16 | Outpatient (CLI) | payer MEDICARE, BC ==
[2018-08-16 09:40] LABS: ALBUMIN 3.6 g/dL (3.5-5.0); ANION GAP 10 (5-19); BLOOD UREA NITROGEN 45 mg/dL (7-20); CALCIUM 11.3 mg/dL (8.4-10.2); CARBON DIOXIDE 29 mmol/L (22-30); CHLORIDE 105 mmol/L (98-107); GLUCOSE 113 mg/dL (75-110); PHOSPHORUS 3.1 mg/dL (2.5-4.5); POTASSIUM 4.1 mmol/L (3.6-5.0); SODIUM 143.5 mmol/L (137-145)
[2018-08-16 10:12] LABS: UR PRO/CREAT RATIO RESULT 0.6 mg/mg (0.0-0.2); URINE CREATININE 114.9 mg/dL (15-278); URINE PROTEIN 69.3 mg/dL (<12)
== END ==
LOC: OD 08:33
PROVIDERS: ATTEND Internal Medicine Nephrology
DX: E11.22 Type 2 diabetes mellitus with diabetic chronic kidney disease (principal); I12.9 Hypertensive chronic kidney disease with stage 1 through stage 4 chronic kidney disease, or unspecified chronic kidney disease; N18.4 Chronic kidney disease, stage 4 (severe); D63.1 Anemia in chronic kidney disease; E87.0 Hyperosmolality and hypernatremia
CPT/HCPCS: 36415; 80069; 82306; 82570; 83970; 84156

== ENCOUNTER → 2018-10-01 | Outpatient (CLI) | payer MEDICARE, BC ==
--- NOTE | 2018-10-01 16:40 | RADIOLOGY REPORT (SQ) ---
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 TECHNIQUE: CT scan performed of the chest without intravenous contrast. Images reviewed with lung, soft tissue and bone windows. Reconstructed coronal and sagittal MPR images reviewed. All images st ored on PACS. All CT scanners at this facility use dose modulation, iterative reconstruction, and/or weight based d osing when appropriate to reduce radiation dose to as low as reasonably achievable (ALARA). [facility]: Dose Right [facility]: CareDose [facility]: Dose Right [facility]: Teradose 4D [facility]: [employer] RADIATION DOSE: mGy. LIMITATIONS: No technical limitations. FINDINGS: LUNGS AND PLEURA: Stable mild scarring in the posterior right lower lobe. Improved aerati on with clearing of the previously seen ground-glass opacities. No masses, infiltrates, or pneumotho rax. No pleural effusions or pleural calcifications. HILAR AND MEDIASTINAL STRUCTURES: No identified masses or abnormal nodes. No obvious aneurysm. HEART AND VASCULAR STRUCTURES: Coronary artery calcifications. No aneurysm. No pericardial effusion . UPPER ABDOMEN: See separate report of the CT of the abdomen. THYROID AND OTHER SOFT TISSUES: No masses. No adenopathy. BONES: No significant finding. HARDWARE: Vascular port. OTHER: No other significant findings. IMPRESSION: STABLE MILD SCARRING IN THE POSTERIOR RIGHT LOWER LOBE. IMPROVED AERATION WITH CLEARING OF THE PREVIOUSLY SEEN GROUND-GLASS OPACITIES. NO OTHER SIGNIFICANT FINDINGS. TECHNICAL DOCUMENTATION: JOB ID: [id number] Quality ID # [id number]: Final reports with documentation of one or more dose reduction techniques (e.g., Au tomated exposure control, adjustment of the mA and/or kV according to patient size, use of iterative reconstruction technique) 2010 [employer]- All Rights Reserved Reading location - IP/workstation name: [email or web address]
--- NOTE | 2018-10-01 16:44 | RADIOLOGY REPORT (SQ) ---
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 TECHNIQUE: CT scan of the abdomen and pelvis performed without intravenous or oral contrast. Images reviewed with lung, soft tissue, and bone windows. Reconstructed coronal and sagittal MPR images revi ewed. All images stored on PACS. All CT scanners at this facility use dose modulation, iterative reconstruction, and/or weight based d osing when appropriate to reduce radiation dose to as low as reasonably achievable (ALARA). [facility]: Dose Right [facility]: CareDose [facility]: Dose Right [facility]: Teradose 4D [facility]: [employer] RADIATION DOSE: CT Rad equipment meets quality standard of care and radiation dose reduction techniq ues were employed. CTDIvol: 4.4 - 5.9 mGy. DLP: 473 mGy-cm.mGy. LIMITATIONS: None. FINDINGS: LOWER CHEST: See separate report of the CT of the chest. NON-CONTRASTED LIVER, SPLEEN, ADRENALS: Evaluation limited by lack of IV contrast. Previous right ad renalectomy. No identified significant masses. PANCREAS: No masses. No peripancreatic inflammatory changes. GALLBLADDER: Surgically absent. RIGHT KIDNEY AND URETER: Surgically absent. LEFT KIDNEY AND URETER: No suspicious masses. Assessment limited by lack of IV contrast. No signifi cant calcifications. No hydronephrosis or hydroureter. AORTA AND RETROPERITONEUM: Extensive vascular calcifications. Left renal artery stent. No aneurysm. No retroperitoneal masses or adenopathy. BOWEL AND PERITONEAL CAVITY: No obvious masses or inflammatory changes. No free fluid. APPENDIX: Surgically absent. PELVIS, BLADDER, AND ABDOMINAL WALL:No abnormal masses. No free fluid. Bladder normal. BONES: Degenerative changes in the spine. Left hip prosthesis. OTHER: No other significant finding. IMPRESSION: STABLE NONCONTRAST CT OF THE ABDOMEN AND PELVIS. SURGICAL CHANGES WITH RIGHT NEPHRECTOM Y AND ADRENALECTOMY WELL ADDITIONAL CHRONIC FINDINGS ABOVE. NO EVIDENCE OF RESIDUAL OR RECU RRENT DISEASE OR METASTASES. COMMENT: Quality ID # [id number]: Final reports with documentation of one or more dose reduction techniques (e.g., Automated exposure control, adjustment of the mA and/or kV according to patient size, use of iterative reconstruction technique) TECHNICAL DOCUMENTATION: JOB ID: [id number] [employer]- All Rights Reserved Reading location - IP/workstation name: [email or web address]
== END ==
LOC: RAD 14:52
PROVIDERS: ATTEND Physician Assistant Medical
DX: C64.1 Malignant neoplasm of right kidney, except renal pelvis (principal)
CPT/HCPCS: 71250; 74176

== ENCOUNTER → 2018-11-28 | Outpatient (CLI) | payer MEDICARE, BC ==
[2018-11-28 11:14] LABS: ANION GAP 10 (5-19); BLOOD UREA NITROGEN 47 mg/dL (7-20); CALCIUM 10.1 mg/dL (8.4-10.2); CARBON DIOXIDE 27 mmol/L (22-30); CHLORIDE 101 mmol/L (98-107); GLUCOSE 128 mg/dL (75-110); POTASSIUM 4.9 mmol/L (3.6-5.0)
[2018-11-28 12:07] LABS: UR PRO/CREAT RATIO RESULT 0.3 mg/mg (0.0-0.2); URINE CREATININE 222.9 mg/dL (15-278); URINE PROTEIN 71.7 mg/dL (<12)
== END ==
LOC: OD 10:00
PROVIDERS: ATTEND Internal Medicine Nephrology
DX: I12.9 Hypertensive chronic kidney disease with stage 1 through stage 4 chronic kidney disease, or unspecified chronic kidney disease (principal); N18.4 Chronic kidney disease, stage 4 (severe); E21.1 Secondary hyperparathyroidism, not elsewhere classified; R80.1 Persistent proteinuria, unspecified
CPT/HCPCS: 36415; 80048; 82570; 83970; 84156

== ENCOUNTER 2018-12-23 11:57 | Emergency (ER) | payer MEDICARE, BC ==
--- NOTE | 2018-12-23 12:38 | ER Document Report ---
ED Medical Screen (RME) - General Chief Complaint: General Weakness Stated Complaint: WEAKNESS Time Seen by Provider: 12/23/18 12:26 Primary Care Provider: BATSHEVA GONSALES MD [Primary Care Provider] - Follow up as needed Notes: Patient is an 83-year-old female who presents to the emergency department with a chief complaint of generalized weakness. Patient's friend at the bedside states that the patient is currently going through immunotherapy post renal cell carcinoma and is followed by Dr. Cervantes. She states that she had labs drawn on the which revealed a low hemoglobin of 8.4. She reports she was also diagnosed with a UTI. Friend at the bedside states that the confusion has improved since being on the Keflex but she is concerned about the low blood level. They were seen yesterday by [facility] and was told to come to the emergency department for evaluation. Patient does have renal disease but is not currently on dialysis. Family member reports [place] on December 01 and was transferred to [facility]. Patient denies chest pain but does report intermittent shortness of breath. TRAVEL OUTSIDE OF THE [place] IN LAST 30 DAYS: No - Related Data Allergies/Adverse Reactions: DENZEL Inhibitors [Denzel Inhibitors] Allergy (Verified 12/23/18 11:59) ACEINHIBITORS [DENZEL Inhibitors] Allergy (Verified 12/23/18 11:59) amlodipine besylate [From Norvasc] Allergy (Verified 12/23/18 11:59) exenatide [From Byetta] Allergy (Verified 12/23/18 11:59) Iodinated Contrast Media [IV Dye, Iodine Containing] Allergy (Verified 12/23/18 11:59) metformin [Metformin] Allergy (Verified 12/23/18 11:59) morphine [Morphine] Allergy (Verified 12/23/18 11:59) nitrofurantoin [From Macrobid] Allergy (Verified 12/23/18 11:59) nitrofurantoin macrocrystalline [From Macrobid] Allergy (Verified 12/23/18 11:59) Past Medical History - Past Medical History Cardiac Medical History: Reports: Hx DVT, Hx Hypercholesterolemia, Hx Hypertension Denies: Hx Coronary Artery Disease, Hx Heart Attack Pulmonary Medical History: Denies: Hx Asthma, Hx Bronchitis, Hx COPD, Hx Pneumonia Neurological Medical History: Reports: Hx Migraine. Denies: Hx Cerebrovascular Accident, Hx Seizures Endocrine Medical History: Reports: Hx Diabetes Mellitus Type 2, Hx Hypothyroidism Renal/ Medical History: Reports: Hx Renal Insufficiency. Denies: Hx Peritoneal Dialysis Malignancy Medical History: Reports: Hx Renal (Kidney) Cancer GI Medical History: Reports: Hx Gastroesophageal Reflux Disease, Hx Irritable Bowel. Denies: Hx Hepatitis, Hx Hiatal Hernia, Hx Ulcer Musculoskeltal Medical History: Reports Hx Arthritis, Reports Hx Gout, Reports Hx Muscle Spasm Psychiatric Medical History: Reports: Hx Depression Infectious Medical History: Denies: Hx Hepatitis Past Surgical History: Reports: Hx Appendectomy, Hx Section, Hx Cholec ystectomy, Hx Genitourinary Surgery - right nephrectomy, Hx Kidney (Renal Surgery) - Right nephrectomy for renal cell carcinoma, Hx Thyroid Surgery - thyroidectomy. Denies: Hx Mastectomy, Hx Open Heart Surgery, Hx Pacemaker - Immunizations Hx Diphtheria, Pertussis, Tetanus Vaccination: No History of Influenza Vaccine for 01/2017 - 06/2017 Season: No Physical Exam - Vital signs Vitals: Temp Pulse Resp BP Pulse Ox 97.5 F 59 L 17 130/54 H 94 12/23/18 12:10 12/23/18 12:10 12/23/18 12:10 12/23/18 12:10 12/23/18 12:10 - Respiratory Respiratory status: No respiratory distress Chest status: Nontender Breath sounds: Normal Chest palpation: Normal - Cardiovascular Rhythm: Regular Course - Re-evaluation Re-evalutation: 12/23/18 12:38 I have greeted and performed a rapid initial assessment of this patient. A comprehensive ED assessment and evaluation of the patient, analysis of test results and completion of the medical decision making process will be conducted by additional ED providers. - Vital Signs Vital signs: Temp Pulse Resp BP Pulse Ox 97.5 F 59 L 17 130/54 H 94 12/23/18 12:10 12/23/18 12:10 12/23/18 12:10 12/23/18 12:10 12/23/18 12:10 Doctor's Discharge - Discharge Referrals: BATSHEVA GONSALES MD [Primary Care Provider] - Follow up as needed
[2018-12-23 13:15] LABS: APPEARANCE,URINE SLIGHTLY-CLOUDY; BILIRUBIN,URINE NEGATIVE (NEGATIVE); COLOR,URINE AMBER; GLUCOSE, URINE NEGATIVE (NEGATIVE); KETONES,URINE NEGATIVE (NEGATIVE); LEUKOCYTE ESTERASE,URINE TRACE (NEGATIVE); NITRITE,URINE NEGATIVE (NEGATIVE); PROTEIN,URINE 100 mg/dL (NEGATIVE); URINE SPECIFIC GRAVITY 1.019; UROBILINOGEN,URINE NEGATIVE mg/dL (<2.0)
[2018-12-23 15:12] LABS: HEMATOCRIT 27.2 % (36.0-47.0); HEMOGLOBIN 8.8 g/dL (12.0-15.5); MEAN CORPUSCULAR HEMOGLOBIN 34.1 pg (27.0-33.4); MEAN CORPUSCULAR HGB CONC 32.4 g/dL (32.0-36.0); MEAN CORPUSCULAR VOLUME 105 fl (80-97); RED BLOOD COUNT 2.59 10^6/uL (3.72-5.28); RED CELL DISTRIBUTION WIDTH 24.6 % (11.5-14.0)
[2018-12-23 15:17] LABS: ALBUMIN 3.3 g/dL (3.5-5.0); ALKALINE PHOSPHATASE 268 U/L (38-126); ANION GAP 9 (5-19); ASPARTATE AMINO TRANSFERASE 53 U/L (14-36); BILIRUBIN,DIRECT 0.4 mg/dL (0.0-0.4); BILIRUBIN,TOTAL 1.3 mg/dL (0.2-1.3); BLOOD UREA NITROGEN 45 mg/dL (7-20); CALCIUM 9.6 mg/dL (8.4-10.2); CARBON DIOXIDE 23 mmol/L (22-30); CHLORIDE 105 mmol/L (98-107); GLUCOSE 132 mg/dL (75-110); POTASSIUM 4.8 mmol/L (3.6-5.0); TOTAL PROTEIN 5.7 g/dL (6.3-8.2)
[2018-12-23 15:28] LABS: CREATINE KINASE MB 1.19 ng/mL (<4.55)
[2018-12-23 15:33] LABS: TROPONIN I 0.076 ng/mL
[2018-12-23 15:36] LABS: PLATELET COUNT 58 10^3/uL (150-450)
[2018-12-23 15:40] LABS: ABSOLUTE MONOCYTES # (MANUAL) 0.3 10^3/uL (0.1-1.4); ANISOCYTOSIS 3+; BASOPHILS % (MANUAL) 1 % (0-2); EOSINOPHILS % (MANUAL) 0 % (0-6); LYMPHOCYTES % (MANUAL) 19 % (13-45); MONOCYTES % (MANUAL) 6 % (3-13); NUCLEATED RED BLOOD CELLS 1 /100 WBC (0); OVALOCYTES 1+; POIKILOCYTOSIS 1+; POLYCHROMASIA SLIGHT; SEGMENTED NEUTROPHILS % (MAN) 74 % (42-78); TOTAL CELLS COUNTED 100
[2018-12-23 15:41] LABS: PLATELET COMMENT DECREASED
--- NOTE | 2018-12-23 16:47 | ER Document Report ---
ED General - General Chief Complaint: General Weakness Stated Complaint: WEAKNESS Time Seen by Provider: 12/23/18 12:26 Primary Care Provider: BATSHEVA GONSALES MD [ACTIVE STAFF] - Follow up in 3-5 days BERTHA NIELSON PA-C [Primary Care Provider] - Follow up in 3-5 days Notes: Patient is an 83-year-old female who presents to the emergency department with a chief complaint of weakness. She apparently has been weak over the past few days. She has had on and off weakness with a poor appetite for the past few weeks. Patient was also seen here in the emergency department with a low hemoglobin the other day. On December 01 she was diagnosed with myocardial infarction and had a stent placed. TRAVEL OUTSIDE OF THE [place] IN LAST 30 DAYS: No - Related Data Allergies/Adverse Reactions: DENZEL Inhibitors [Denzel Inhibitors] Allergy (Verified 12/23/18 11:59) ACEINHIBITORS [DENZEL Inhibitors] Allergy (Verified 12/23/18 11:59) amlodipine besylate [From Norvasc] Allergy (Verified 12/23/18 11:59) exenatide [From Byetta] Allergy (Verified 12/23/18 11:59) Iodinated Contrast Media [IV Dye, Iodine Containing] Allergy (Verified 12/23/18 11:59) metformin [Metformin] Allergy (Verified 12/23/18 11:59) morphine [Morphine] Allergy (Verified 12/23/18 11:59) nitrofurantoin [From Macrobid] Allergy (Verified 12/23/18 11:59) nitrofurantoin macrocrystalline [From Macrobid] Allergy (Verified 12/23/18 11:59) Past Medical History - Social History Smoking Status: Former Smoker Chew tobacco use (# tins/day): No Frequency of alcohol use: None Drug Abuse: None Family History: Reviewed & Not Pertinent, CVA Patient has suicidal ideation: No Patient has homicidal ideation: No - Past Medical History Cardiac Medical History: Reports: Hx DVT, Hx Hypercholesterolemia, Hx Hypertension Denies: Hx Coronary Artery Disease, Hx Heart Attack Pulmonary Medical History: Denies: Hx Asthma, Hx Bronchitis, Hx COPD, Hx Pneumonia Neurological Medical History: Reports: Hx Migraine. Denies: Hx Cerebrovascular Accident, Hx Seizures Endocrine Medical History: Reports: Hx Diabetes Mellitus Type 2, Hx Hypothyroidism Renal/ Medical History: Reports: Hx Renal Insufficiency. Denies: Hx Peritoneal Dialysis Malignancy Medical History: Reports: Hx Renal (Kidney) Cancer GI Medical History: Reports: Hx Gastroesophageal Reflux Disease, Hx Irritable Bowel. Denies: Hx Hepatitis, Hx Hiatal Hernia, Hx Ulcer Musculoskeletal Medical History: Reports Hx Arthritis, Reports Hx Gout, Reports Hx Muscle Spasm Psychiatric Medical History: Reports: Hx Depression Infectious Medical History: Denies: Hx Hepatitis Past Surgical History: Reports: Hx Appendectomy, Hx Section, Hx Cholecystectomy, Hx Genitourinary Surgery - right nephrectomy, Hx Kidney (Renal Surgery) - Right nephrectomy for renal cell carcinoma, Hx Thyroid Surgery - thyroidectomy. Denies: Hx Mastectomy, Hx Open Heart Surgery, Hx Pacemaker - Immunizations Hx Diphtheria, Pertussis, Tetanus Vaccination: No Review of Systems - Review of Systems Notes: REVIEW OF SYSTEMS: CONSTITUTIONAL : Denies recent illness. Denies recent unintentional weight loss. Denies fever, chills, or sweats. EENT: Denies eye, ear, throat, or mouth pain, discharge, or symptoms. Denies nasal or sinus congestion. CARDIOVASCULAR: Denies chest pain. RESPIRATORY: Denies shortness of breath, cough, congestion, difficulty breathing, or wheezing. GASTROINTESTINAL: Denies nausea, vomiting, and diarrhea. Denies abdominal pain. Denies constipation. GENITOURINARY: Denies difficulty urinating, burning, blood in urine, urgency or frequency. MUSCULOSKELETAL: Denies neck and back pain. Denies joint pain or swelling. SKIN: Denies rash, itchiness, or lesions HEMATOLOGIC : Denies easy bruising or bleeding. LYMPHATIC: Denies swollen, painful, enlarged glands. NEUROLOGICAL: See HPI PSYCHIATRIC: Denies stress, anxiety, alteration in sleep patterns, or depression. All other systems reviewed and negative. Physical Exam - Vital signs Vitals: Temp Pulse Resp BP Pulse Ox 97.5 F 59 L 17 130/54 H 94 12/23/18 12:10 12/23/18 12:10 12/23/18 12:10 12/23/18 12:10 12/23/18 12:10 - Notes Notes: PHYSICAL EXAMINATION: GENERAL: Appears well, healthy, well-nourished, no acute distress. HEAD: Normocephalic, atraumatic. EYES: PERRL, conjunctiva normal, all extraocular movements intact, sclera nonicteric ENT: Moist mucous membranes. NECK: Supple, no noticeable swelling, redness, rash. Normal range of motion. LUNGS: Equal breath sounds bilaterally and clear to auscultation. No wheezes rales or rhonchi. CARDIOVASCULAR: S1-S2, regular rate, regular rhythm. Radial pulses 2+, normal. ABDOMEN: Normoactive bowel sounds. Soft, nontender, no guarding, no rebound tenderness, and no masses palpated. EXTREMITIES: Normal strength and range of motion, no pitting or edema. No cyanosis. NEUROLOGICAL: Moves all extremities upon command. Strength 5/5 in all e xtremities. PSYCH: Normal mood, normal affect. SKIN: Warm, dry. No rash, lesions, ulcerations noted. Normal skin turgor. Course - Re-evaluation Re-evalutation: 12/23/18 18:08 Patient's hemoglobin has actually improved to 8.8 from the other day. Her chemistries also show an improvement in her creatinine. Patient's troponin was 0.076 which is indeterminant and patient adamantly denies any chest pain at this time. Her troponin has actually improved from the other day. 12/24/18 19:00 Patient's urinary tract infection has almost all the way cleared. Chemistries show creatinine of 2.24, which is an improvement from the day. The patient ambulated in the ortez with continuous pulse ox with oxygen saturation greater than 95% on room air. The PCT who walked patient stated that the patient did very well with her walker. At this time, I feel the patient is safe to go home. I discussed these findings with Mylene, her "POA" over the phone. I instructed the patient to follow-up with her primary care provider. They are in agreement with this plan. Follow-up precautions were given. Verbal discharge instructions were given to the patient. They verbalized understanding. They are stable for discharge. - Vital Signs Vital signs: Temp Pulse Resp BP Pulse Ox 97.8 F 59 L 11 L 142/61 H 95 12/23/18 19:12 12/23/18 12:10 12/23/18 19:12 12/23/18 19:12 12/23/18 19:12 - Laboratory Result Diagrams: 12/23/18 14:50 12/23/18 14:50 Laboratory results interpreted by me: 12/23/18 12/23/18 12/23/18 12:52 14:50 14:50 RBC 2.59 L Hgb 8.8 L Hct 27.2 L MCV 105 H MCH 34.1 H RDW 24.6 H Plt Count 58 L BUN 45 H Creatinine 2.24 H Est GFR ( Amer) 25 L Est GFR (MDRD) Non-Af 21 L Glucose 132 H AST 53 H Alkaline Phosphatase 268 H Creatine Kinase Total Protein 5.7 L Albumin 3.3 L Urine Protein 100 H Ur Leukocyte Esterase TRACE H 12/23/18 14:50 RBC Hgb Hct MCV MCH RDW Plt Count BUN Creatinine Est GFR ( Amer) Est GFR (MDRD) Non-Af Glucose AST Alkaline Phosphatase Creatine Kinase 26 L Total Protein Albumin Urine Protein Ur Leukocyte Esterase - EKG Interpretation by Me Additional EKG results interpreted by me: 12/23/18 18:25 Sinus bradycardia. Rate 53. AL 172; QRS 94; QT 464; QTc 436. No ST elevations noted. No acute change from previous EKG done on December 18, 2018. Discharge - Discharge Clinical Impression: Weakness Condition: Stable Disposition: HOME, SELF-CARE Additional Instructions: You were seen today in the emergency department for weakness. At this time, your labs are normal. The exact cause of your weakness is not quite known. Your strength is strong. Please follow-up with your primary care provider in regards to this visit. If you have worsening symptoms, develops facial droop, chest pain, difficulty breathing, shortness of breath, or any other symptoms that are worrisome to you, please return to the emergency department. Make sure you are eating well, as this will help to keep strong. You can drink Ensure to help with your nutrition. Referrals: BATSHEVA GONSALES MD [ACTIVE STAFF] - Follow up in 3-5 days BERTHA NIELSON PA-C [Primary Care Provider] - Follow up in 3-5 days
--- NOTE | 2018-12-23 18:06 | RADIOLOGY REPORT (SQ) ---
EXAM DESCRIPTION: CHEST SINGLE VIEW COMPLETED DATE/TIME: 12/23/2018 5:41 pm REASON FOR STUDY: weakness COMPARISON: 12/18/2018 TECHNIQUE: Single frontal radiographic view of the chest acquired. NUMBER OF VIEWS: One view. LIMITATIONS: None. FINDINGS: LUNGS AND PLEURA: No pneumothorax. No consolidation or pleural effusion. MEDIASTINUM AND HILAR STRUCTURES: Stable. HEART AND VASCULAR STRUCTURES: Stable. BONES: No acute findings. HARDWARE: Right chest port. OTHER: No other significant finding. IMPRESSION: NO ACUTE FINDINGS. TECHNICAL DOCUMENTATION: JOB ID: [id number] [place]-72 2010 [employer]- All Rights Reserved Reading location - IP/workstation name: [email or web address]
--- NOTE | 2018-12-23 18:17 | EKG REPORT ---
SEVERITY:- ABNORMAL ECG - SINUS RHYTHM LEFT AXIS DEVIATION LOW VOLTAGE THROUGHOUT BORDERLINE R WAVE PROGRESSION, ANTERIOR LEADS ST CHANGES WERE NEW SINCE 11/15/14 ABNORMAL T, CONSIDER ISCHEMIA, INFERIOR LEADS SINCE 12/18/18. : Confirmed by: Hector Diaz MD 23-Dec-2018 18:17:26
[2018-12-23 19:36] VITALS: BP 142/61
== END 2018-12-23 19:36 | disposition home or self-care (01) ==
LOC: ER 11:57
DX: R53.1 Weakness (principal); N39.0 Urinary tract infection, site not specified; R63.0 Anorexia; R00.1 Bradycardia, unspecified; I10 Essential (primary) hypertension; E11.9 Type 2 diabetes mellitus without complications; E89.0 Postprocedural hypothyroidism; Z95.5 Presence of coronary angioplasty implant and graft; Z85.528 Personal history of other malignant neoplasm of kidney; Z90.5 Acquired absence of kidney; Z88.8 Allergy status to other drugs, medicaments and biological substances; Z91.041 Radiographic dye allergy status; Z88.5 Allergy status to narcotic agent; Z88.1 Allergy status to other antibiotic agents; Z87.891 Personal history of nicotine dependence
CPT/HCPCS: 93005; 36591; 99285; 86900; 86901; 36415; 82553; 86870; 86850; 82550; 85025; 80053; 81001; 84484; 71045; 93010; J1642

== ENCOUNTER → 2019-01-18 | Outpatient (CLI) | payer MEDICARE, BC ==
[2019-01-18 14:59] LABS: ANION GAP 9 (5-19); BLOOD UREA NITROGEN 30 mg/dL (7-20); CARBON DIOXIDE 25 mmol/L (22-30); CHLORIDE 106 mmol/L (98-107); GLUCOSE 151 mg/dL (75-110); POTASSIUM 5.3 mmol/L (3.6-5.0)
== END ==
LOC: OD 13:37
PROVIDERS: ATTEND Physician Assistant Medical
DX: E11.9 Type 2 diabetes mellitus without complications (principal); C64.1 Malignant neoplasm of right kidney, except renal pelvis; R31.9 Hematuria, unspecified
CPT/HCPCS: 36415; 80048

== ENCOUNTER → 2019-02-28 | Outpatient (CLI) | payer MEDICARE, BC ==
--- NOTE | 2019-02-28 14:27 | RADIOLOGY REPORT (SQ) ---
EXAM DESCRIPTION: CT CHEST WITHOUT COMPLETED DATE/TIME: 02/28/2019 12:59 pm REASON FOR STUDY: KIDNEY CA (C64.1) C64.1 MALIGNANT NEOPLASM OF RIGHT KIDNEY, EXCEPT RENAL PELVI COMPARISON: None. TECHNIQUE: CT scan performed of the chest without intravenous contrast. Images reviewed with lung, soft tissue and bone windows. Reconstructed coronal and sagittal MPR images reviewed. All images st ored on PACS. All CT scanners at this facility use dose modulation, iterative reconstruction, and/or weight based d osing when appropriate to reduce radiation dose to as low as reasonably achievable (ALARA). [facility]: Dose Right [facility]: CareDose [facility]: Dose Right [facility]: Teradose 4D [facility]: [employer] RADIATION DOSE: mGy. LIMITATIONS: No technical limitations. FINDINGS: LUNGS AND PLEURA: Significant pleural effusions, right larger than left. No pulmonary mas s or infiltrate. HILAR AND MEDIASTINAL STRUCTURES: No identified masses or abnormal nodes. No obvious aneurysm. HEART AND VASCULAR STRUCTURES: No aneurysm. No pericardial effusion. Extensive aortic and coronary atherosclerosis. UPPER ABDOMEN: See separate report of the CT of the abdomen. THYROID AND OTHER SOFT TISSUES: No masses. No adenopathy. BONES: No significant finding. HARDWARE: None in the chest. OTHER: Dense breast tissue. IMPRESSION: 1. Bilateral pleural effusions, right larger than left. No infiltrate or mass. 2. Extensive aortic and coronary atherosclerosis. 3. Dense breast tissue. TECHNICAL DOCUMENTATION: JOB ID: [id number] Quality ID # [id number]: Final reports with documentation of one or more dose reduction techniques (e.g., Au tomated exposure control, adjustment of the mA and/or kV according to patient size, use of iterative reconstruction technique) 2010 [employer]- All Rights Reserved Reading location - IP/workstation name: [email or web address]
--- NOTE | 2019-02-28 14:27 | RADIOLOGY REPORT (SQ) ---
EXAM DESCRIPTION: CT ABD/PELVIS NO ORAL OR IV COMPLETED DATE/TIME: 02/28/2019 12:59 pm REASON FOR STUDY: KIDNEY CA (C64.1) C64.1 MALIGNANT NEOPLASM OF RIGHT KIDNEY, EXCEPT RENAL PELVI COMPARISON: 10/01/2018 TECHNIQUE: CT scan of the abdomen and pelvis performed without intravenous or oral contrast. Images reviewed with lung, soft tissue, and bone windows. Reconstructed coronal and sagittal MPR images revi ewed. All images stored on PACS. All CT scanners at this facility use dose modulation, iterative reconstruction, and/or weight based d osing when appropriate to reduce radiation dose to as low as reasonably achievable (ALARA). [facility]: Dose Right [facility]: CareDose [facility]: Dose Right [facility]: Teradose 4D [facility]: [email or web address] RADIATION DOSE: CT Rad equipment meets quality standard of care and radiation dose reduction techniq ues were employed. CTDIvol: 5.9 - 7.7 mGy. DLP: 641 mGy-cm.mGy. LIMITATIONS: Artifact from left hip arthroplasty. FINDINGS: LOWER CHEST: See separate report of the CT of the chest. NON-CONTRASTED LIVER, SPLEEN, ADRENALS: Evaluation limited by lack of IV contrast. No identified sign ificant masses. PANCREAS: No masses. No peripancreatic inflammatory changes. GALLBLADDER: Surgically absent. RIGHT KIDNEY AND URETER: Surgically absent kidney. LEFT KIDNEY AND URETER: No suspicious masses. Assessment limited by lack of IV contrast. No signifi cant calcifications. No hydronephrosis or hydroureter. AORTA AND RETROPERITONEUM: Ectasia. No aneurysm. BOWEL AND PERITONEAL CAVITY: Small amount of ascites. Sigmoid diverticulosis. APPENDIX: Surgically absent. PELVIS, BLADDER, AND ABDOMINAL WALL:Body wall edema. BONES: Nothing acute. OTHER: No other significant finding. IMPRESSION: 1. Small amount of ascites. Body wall edema. 2. Prior right nephrectomy. COMMENT: Quality ID # [id number]: Final reports with documentation of one or more dose reduction techniques (e.g., Automated exposure control, adjustment of the mA and/or kV according to patient size, use of iterative reconstruction technique) TECHNICAL DOCUMENTATION: JOB ID: [id number] [employer]- All Rights Reserved Reading location - IP/workstation name: [email or web address]
== END ==
LOC: RAD 12:45
PROVIDERS: ATTEND Internal Medicine
DX: C64.1 Malignant neoplasm of right kidney, except renal pelvis (principal)
CPT/HCPCS: 71250; 74176

== ENCOUNTER 2019-03-01 13:50 | Inpatient (IN) | payer MEDICARE, BC ==
--- NOTE | 2019-03-01 14:05 | ER Document Report ---
ED Medical Screen (RME) - General Chief Complaint: Weakness Stated Complaint: WEAKNESS Time Seen by Provider: 03/01/19 13:59 Primary Care Provider: ERIN MEZA MD [Primary Care Provider] - Follow up as needed Mode of Arrival: Wheelchair Information source: Patient Notes: 83-year-old female presents to ED from her doctor's office for continued complaint of shortness of breath, right back pain urinary frequency urgency and daughter thinks she has a new UTI. She was sent from the doctor's office due to elevation in creatinine from 1.6-2.3 new onset pleural effusion new onset heart failure and shortness of breath was seen at the cardiology office this morning. She does have a dialysis fistula because she has had the have dialysis 2 times in the past but is not on it regularly now. She states Dr. Feliciano is her promotion manager. The forming press operator was trying to call the promotion manager to get her seen today and they are off today and fully booked so she cannot get into the promotion manager before her appointment which is scheduled on 19 March. She is scheduled for labs the week before. She does have a history of renal cell carcinoma and with removal of right kidney. Is alert and oriented at this time. Daughter states that she fell yesterday and has a bruised right eye at this time. She is also very hard of hearing. She is not on blood thinners I have greeted and performed a rapid initial assessment of this patient. A comprehensive ED assessment and evaluation of the patient, analysis of test results and completion of medical decision making process will be conducted by an additional ED providers. TRAVEL OUTSIDE OF THE [place] IN LAST 30 DAYS: No - Related Data Allergies/Adverse Reactions: DENZEL Inhibitors [Denzel Inhibitors] Allergy (Verified 12/23/18 11:59) ACEINHIBITORS [DENZEL Inhibitors] Allergy (Verified 12/23/18 11:59) amlodipine besylate [From Norvasc] Allergy (Verified 12/23/18 11:59) exenatide [From Byetta] Allergy (Verified 12/23/18 11:59) Iodinated Contrast Media [IV Dye, Iodine Containing] Allergy (Verified 12/23/18 11:59) metformin [Metformin] Allergy (Verified 12/23/18 11:59) morphine [Morphine] Allergy (Verified 12/23/18 11:59) nitrofurantoin [From Macrobid] Allergy (Verified 12/23/18 11:59) nitrofurantoin macrocrystalline [From Macrobid] Allergy (Verified 12/23/18 11:59) Past Medical History - Past Medical History Cardiac Medical History: Reports: Hx DVT, Hx Hypercholesterolemia, Hx Hypertension Denies: Hx Coronary Artery Disease, Hx Heart Attack Pulmonary Medical History: Denies: Hx Asthma, Hx Bronchitis, Hx COPD, Hx Pneumonia Neurological Medical History: Reports: Hx Migraine. Denies: Hx Cerebrovascular Accident, Hx Seizures Endocrine Medical History: Reports: Hx Diabetes Mellitus Type 2, Hx Hypothyroidism Renal/ Medical History: Reports: Hx Renal Insufficiency. Denies: Hx Peritoneal Dialysis Malignancy Medical History: Reports: Hx Renal (Kidney) Cancer GI Medical History: Reports: Hx Gastroesophageal Reflux Disease, Hx Irritable Bowel. Denies: Hx Hepatitis, Hx Hiatal Hernia, Hx Ulcer Musculoskeltal Medical History: Reports Hx Arthritis, Reports Hx Gout, Reports Hx Muscle Spasm Psychiatric Medical History: Reports: Hx Depression Infectious Medical History: Denies: Hx Hepatitis Past Surgical History: Reports: Hx Appendectomy, Hx Section, Hx Cholecystectomy, Hx Genitourinary Surgery - right nephrectomy, Hx Kidney (Renal Surgery) - Right nephrectomy for renal cell carcinoma, Hx Thyroid Surgery - thyroidectomy. Denies: Hx Mastectomy, Hx Open Heart Surgery, Hx Pacemaker - Immunizations Hx Diphtheria, Pertussis, Tetanus Vaccination: No Doctor's Discharge - Discharge Referrals: ERIN MEZA MD [Primary Care Provider] - Follow up as needed
--- NOTE | 2019-03-01 15:08 | RADIOLOGY REPORT (SQ) ---
EXAM DESCRIPTION: CHEST 2 VIEWS COMPLETED DATE/TIME: 03/01/2019 2:57 pm REASON FOR STUDY: Shortness of breath new pleural effusion COMPARISON: 12/23/2018 EXAM PARAMETERS: NUMBER OF VIEWS: two views TECHNIQUE: Digital Frontal and Lateral radiographic views of the chest acquired. RADIATION DOSE: NA LIMITATIONS: none FINDINGS: LUNGS AND PLEURA: There are bilateral pleural effusions right greater than left. MEDIASTINUM AND HILAR STRUCTURES: No masses or contour abnormalities. HEART AND VASCULAR STRUCTURES: Heart is slightly enlarged. There is central vascular prominence. BONES: No acute findings. HARDWARE: [id number] remains in place. OTHER: No other significant finding. IMPRESSION: Bilateral pleural effusions right greater than left. This is new from prior study. Mil d vascular congestion. TECHNICAL DOCUMENTATION: JOB ID: [id number] [employer]- All Rights Reserved Reading location - IP/workstation name: [email or web address]
[2019-03-01 15:17] LABS: ABSOLUTE EOSINOPHILS # (AUTO) 0.1 10^3/uL (0.0-0.6); ABSOLUTE LYMPHOCYTES (AUTO) 1.3 10^3/uL (0.5-4.7); ABSOLUTE MONOCYTES (AUTO) 0.3 10^3/uL (0.1-1.4); ABSOLUTE NEUT (AUTO) 3.7 10^3/uL (1.7-8.2); APPEARANCE,URINE CLEAR; BASOPHILS % (AUTO) 0.9 % (0-2); BILIRUBIN,URINE NEGATIVE (NEGATIVE); COLOR,URINE YELLOW; EOSINOPHILS % (AUTO) 1.6 % (0-6); GLUCOSE, URINE NEGATIVE (NEGATIVE); HEMATOCRIT 35.9 % (36.0-47.0); HEMOGLOBIN 11.6 g/dL (12.0-15.5); KETONES,URINE NEGATIVE (NEGATIVE); LYMPHOCYTES % (AUTO) 23.5 % (13-45); MEAN CORPUSCULAR HEMOGLOBIN 32.5 pg (27.0-33.4); MEAN CORPUSCULAR HGB CONC 32.4 g/dL (32.0-36.0); MEAN CORPUSCULAR VOLUME 100 fl (80-97); MONOCYTES % (AUTO) 6.2 % (3-13); PROTEIN,URINE >=500 mg/dL (NEGATIVE); RED BLOOD COUNT 3.58 10^6/uL (3.72-5.28); RED CELL DISTRIBUTION WIDTH 17.4 % (11.5-14.0); SEGMENTED NEUTROPHILS % (AUTO) 67.8 % (42-78); TOTAL CELLS COUNTED % (AUTO) 100 %; UROBILINOGEN,URINE NEGATIVE mg/dL (<2.0); WHITE BLOOD COUNT 5.5 10^3/uL (4.0-10.5)
[2019-03-01 15:36] LABS: ALBUMIN 4.2 g/dL (3.5-5.0); ALKALINE PHOSPHATASE 101 U/L (38-126); ANION GAP 11 (5-19); ASPARTATE AMINO TRANSFERASE 36 U/L (14-36); BILIRUBIN,DIRECT 0.7 mg/dL (0.0-0.4); BILIRUBIN,TOTAL 1.4 mg/dL (0.2-1.3); BLOOD UREA NITROGEN 26 mg/dL (7-20); CALCIUM 10.5 mg/dL (8.4-10.2); CARBON DIOXIDE 23 mmol/L (22-30); CHLORIDE 109 mmol/L (98-107); GLUCOSE 146 mg/dL (75-110); POTASSIUM 4.8 mmol/L (3.6-5.0)
[2019-03-01 15:39] LABS: PLATELET COUNT 85 10^3/uL (150-450)
--- NOTE | 2019-03-01 17:35 | RADIOLOGY REPORT (SQ) ---
EXAM DESCRIPTION: CT CERVICAL SPINE WITHOUT COMPLETED DATE/TIME: 03/01/2019 5:03 pm REASON FOR STUDY: fall COMPARISON: CT, C-spine 03/15/2018 TECHNIQUE: Axial images acquired through the cervical spine without intravenous contrast. Images re viewed with lung, soft tissue and bone windows. Reconstructed coronal and sagittal MPR images review ed. Images stored on PACS. All CT scanners at this facility use dose modulation, iterative reconstruction, and/or weight based d osing when appropriate to reduce radiation dose to as low as reasonably achievable (ALARA). [facility]: Dose Right [facility]: CareDose [facility]: Dose Right [facility]: Teradose 4D [facility]: [employer] RADIATION DOSE: CT Rad equipment meets quality standard of care and radiation dose reduction techniq ues were employed. CTDIvol: 20.5 mGy. DLP: 441 mGy-cm. mGy. LIMITATIONS: None. FINDINGS: ALIGNMENT: Mild reversal of normal cervical lordosis. MINERALIZATION: Normal. VERTEBRAL BODIES: No fractures or dislocation. DISCS: Multilevel degenerative disc disease. FACETS, LATERAL MASSES, POSTERIOR ELEMENTS: No fractures. No dislocation. No acute findings. HARDWARE: Partially visualized right internal jugular central venous catheter. VISUALIZED RIBS: No fractures. LUNG APICES AND SOFT TISSUES: Right greater than left pleural effusions. OTHER: No other significant finding. IMPRESSION: No acute osseous abnormality of the cervical spine. Right greater than left pleural effusions. TECHNICAL DOCUMENTATION: JOB ID: [id number] Quality ID # [id number]: Final reports with documentation of one or more dose reduction techniques (e.g., Au tomated exposure control, adjustment of the mA and/or kV according to patient size, use of iterative reconstruction technique) 2010 [employer]- All Rights Reserved Reading location - IP/workstation name: [email or web address]--[email or web address]
--- NOTE | 2019-03-01 17:38 | RADIOLOGY REPORT (SQ) ---
EXAM DESCRIPTION: CT HEAD WITHOUT COMPLETED DATE/TIME: 03/01/2019 5:04 pm REASON FOR STUDY: fall COMPARISON: CT head 12/18/2018 TECHNIQUE: Axial images acquired through the brain without intravenous contrast. Images reviewed wi th bone, brain and subdural windows. Additional sagittal and coronal reconstructions were generated. Images stored on PACS. All CT scanners at this facility use dose modulation, iterative reconstruction, and/or weight based d osing when appropriate to reduce radiation dose to as low as reasonably achievable (ALARA). [facility]: Dose Right [facility]: CareDose [facility]: Dose Right [facility]: Teradose 4D [facility]: [employer] RADIATION DOSE: CT Rad equipment meets quality standard of care and radiation dose reduction techniq ues were employed. CTDIvol: 53.2 mGy. DLP: 991 mGy-cm. mGy. LIMITATIONS: None. FINDINGS: VENTRICLES: Prominent ventricles secondary to involutional atrophy. CEREBRUM: No masses. No hemorrhage. No midline shift. No evidence for acute infarction. Few scatte red areas of low density in the white matter most likely chronic small vessel ischemic changes. CEREBELLUM: No masses. No hemorrhage. No alteration of density. No evidence for acute infarction. EXTRAAXIAL SPACES: No fluid collections. No masses. ORBITS AND GLOBE: No intra- or extraconal masses. Normal contour of globe without masses. CALVARIUM: No fracture. PARANASAL SINUSES: No fluid or mucosal thickening. SOFT TISSUES: No mass or hematoma. OTHER: No other significant finding. IMPRESSION: NO ACUTE INTRACRANIAL IMAGING FINDINGS. EVIDENCE OF ACUTE STROKE: NO. COMMENT: Quality ID # 436: Final reports with documentation of one or more dose reduction techniques (e.g., Automated exposure control, adjustment of the mA and/or kV according to patient size, use of iterative reconstruction technique) TECHNICAL DOCUMENTATION: JOB ID: [id number]- All Rights Reserved Reading location - IP/workstation name: [email or web address]
--- NOTE | 2019-03-01 17:40 | RADIOLOGY REPORT (SQ) ---
EXAM DESCRIPTION: CT THORACIC SPINE WITHOUT COMPLETED DATE/TIME: 03/01/2019 5:04 pm REASON FOR STUDY: fall COMPARISON: CT chest 02/28/2019 TECHNIQUE: Axial images acquired through the thoracic spine without intravenous contrast. Images re viewed with lung, soft tissue and bone windows. Reconstructed coronal and sagittal MPR images review ed. Images stored on PACS. All CT scanners at this facility use dose modulation, iterative reconstruction, and/or weight based d osing when appropriate to reduce radiation dose to as low as reasonably achievable (ALARA). [facility]: Dose Right [facility]: CareDose [facility]: Dose Right [facility]: Teradose 4D [facility]: Smart [employer] RADIATION DOSE: CT Rad equipment meets quality standard of care and radiation dose reduction techniq ues were employed. CTDIvol: 104.3 mGy. DLP: 2972 mGy-cm. mGy. LIMITATIONS: None. FINDINGS: VISUALIZED LUNGS: Large right greater than left pleural effusions. SOFT TISSUES: No soft tissue swelling. No masses. VERTEBRAL BODIES: No fractures. No dislocation. No acute findings. DISCS: Multilevel degenerative disc disease. ALIGNMENT: Normal. TRANSVERSE PROCESSES, POSTERIOR ELEMENTS: No fractures. No dislocation. No acute findings. HARDWARE: None in the spine. VISUALIZED RIBS: No fractures. OTHER: No other significant finding. IMPRESSION: No acute osseous abnormality of the thoracic spine. Large right greater than left pleural effusions. TECHNICAL DOCUMENTATION: JOB ID: [id number] Quality ID # [id number]: Final reports with documentation of one or more dose reduction techniques (e.g., Au tomated exposure control, adjustment of the mA and/or kV according to patient size, use of iterative reconstruction technique) 2010 [employer]- All Rights Reserved Reading location - IP/workstation name: [email or web address]
--- NOTE | 2019-03-01 17:44 | RADIOLOGY REPORT (SQ) ---
EXAM DESCRIPTION: CT LUMBAR SPINE WITHOUT COMPLETED DATE/TIME: 03/01/2019 5:04 pm REASON FOR STUDY: fall COMPARISON: CT abdomen pelvis 02/28/2019 TECHNIQUE: Axial images acquired through the lumbar spine without intravenous contrast. Images revi ewed with lung, soft tissue and bone windows. Reconstructed coronal and sagittal MPR images reviewed . All images stored on PACS. All CT scanners at this facility use dose modulation, iterative reconstruction, and/or weight based d osing when appropriate to reduce radiation dose to as low as reasonably achievable (ALARA). [facility]: Dose Right [facility]: CareDose [facility]: Dose Right [facility]: Teradose 4D [facility]: [employer] RADIATION DOSE: mGy. LIMITATIONS: None. FINDINGS: SEGMENTATION: Normal. No transitional anatomy. ALIGNMENT: Normal. VERTEBRAL BODIES: No fractures. No dislocation. No acute findings. DISCS: Lumbosacral degenerative disc disease. PEDICLES, TRANSVERSE PROCESSES: No fractures. No dislocation. No acute findings. FACETS, POSTERIOR ELEMENTS: No fractures. No dislocation. No spinal stenosis. HARDWARE: None in the spine. VISUALIZED RIBS: No fractures. SOFT TISSUES: No significant or acute finding in adjacent soft tissues. OTHER: No other significant finding. IMPRESSION: No acute osseous abnormality of the lumbar spine. TECHNICAL DOCUMENTATION: JOB ID: [id number] Quality ID # [id number]: Final reports with documentation of one or more dose reduction techniques (e.g., Au tomated exposure control, adjustment of the mA and/or kV according to patient size, use of iterative reconstruction technique) 2010 [employer]- All Rights Reserved Reading location - IP/workstation name: [email or web address]
--- NOTE | 2019-03-01 18:13 | ER Document Report ---
Entered by RIVER GUNTER SCRIBE 03/01/19 1602 Acting as scribe for:SREEKANTH LYNN MD ED General - General Chief Complaint: Shortness Of Breath Stated Complaint: WEAKNESS Time Seen by Provider: 03/01/19 13:59 Primary Care Provider: ERIN MEZA MD [ACTIVE STAFF] - Follow up as needed Mode of Arrival: Wheelchair Information source: Patient Notes: 83-year-old female with renal cell carcinoma status post nephrectomy who presents to the emergency department today with complaints of abnormal labs. Patient was seen by her primary care physician today and was told her "kidneys were not doing good" so her janitor head was called. Patient states her janitor head is Dr. Feliciano but her office is closed today so she was told to come here. Patient had a STEMI on December 10 and had to have dialysis after that once according to family. Patient has a fistula in her left upper extremity. Patient states she had a mechanical fall yesterday and now has some back pain. Patient states she takes aspirin daily but denies any other blood thinning medications. Patient states she did not hit her head during the fall yesterday. Patient states she does not take any water pills and she does have some leg swelling today. Patient denies any cough or fevers. TRAVEL OUTSIDE OF THE [place] IN LAST 30 DAYS: No - Related Data Allergies/Adverse Reactions: DENZEL Inhibitors [Denzel Inhibitors] Allergy (Verified 03/01/19 16:03) ACEINHIBITORS [DENZEL Inhibitors] Allergy (Verified 03/01/19 16:03) amlodipine besylate [From Norvasc] Allergy (Verified 03/01/19 16:03) exenatide [From Byetta] Allergy (Verified 03/01/19 16:03) Iodinated Contrast Media [IV Dye, Iodine Containing] Allergy (Verified 03/01/19 16:03) metformin [Metformin] Allergy (Verified 03/01/19 16:03) morphine [Morphine] Allergy (Verified 03/01/19 16:03) nitrofurantoin [From Macrobid] Allergy (Verified 03/01/19 16:03) nitrofurantoin macrocrystalline [From Macrobid] Allergy (Verified 03/01/19 16:03) Past Medical History - General Information source: Patient - Social History Smoking Status: Never Smoker Cigarette use (# per day): No Chew tobacco use (# tins/day): No Frequency of alcohol use: None Drug Abuse: None Lives with: Family Family History: Reviewed & Not Pertinent, CVA Patient has suicidal ideation: No Patient has homicidal ideation: No - Past Medical History Cardiac Medical History: Reports: Hx DVT, Hx Hypercholesterolemia, Hx Hypertension Neurological Medical History: Reports: Hx Migraine Endocrine Medical History: Reports: Hx Diabetes Mellitus Type 2, Hx Hypothyroidism Renal/ Medical History: Reports: Hx Renal Insufficiency Malignancy Medical History: Reports: Hx Renal (Kidney) Cancer GI Medical History: Reports: Hx Gastroesophageal Reflux Disease, Hx Irritable Bowel Musculoskeletal Medical History: Reports Hx Arthritis, Reports Hx Gout, Reports Hx Muscle Spasm Psychiatric Medical History: Reports: Hx Depression Past Surgical History: Reports: Hx Appendectomy, Hx Section, Hx Cholecystectomy, Hx Genitourinary Surgery - right nephrectomy, Hx Kidney (Renal Surgery) - Right nephrectomy for renal cell carcinoma, Hx Thyroid Surgery - thyroidectomy - Immunizations Hx Diphtheria, Pertussis, Tetanus Vaccination: No Review of Systems - Review of Systems Constitutional: See HPI, Other - abnormal labs. denies: Fever EENT: No symptoms reported Cardiovascular: No symptoms reported Respiratory: denies: Cough Gastrointestinal: No symptoms reported Genitourinary: No symptoms reported Female Genitourinary: No symptoms reported Musculoskeletal: See HPI, Back pain, Leg swelling Skin: No symptoms reported Hematologic/Lymphatic: No symptoms reported Neurological/Psychological: No symptoms reported -: Yes All other systems reviewed and negative Physical Exam - Vital signs Vitals: Temp Pulse Resp BP Pulse Ox 97.6 F 65 18 138/96 H 91 L 03/01/19 14:01 03/01/19 14:01 03/01/19 14:01 03/01/19 14:01 03/01/19 14:01 - Notes Notes: Physical Exam: General: Alert, appears age appropriate. HEENT: Normocephalic. PERRL. Extraocular movements intact. Oropharynx clear. Right sided periorbital ecchymosis without stepoff or deformity. Neck: Supple. Non-tender. Respiratory: No respiratory distress. Bibasilar crackles. Cardiovascular: Regular rate and rhythm. Abdominal: Normal Inspection. Non-tender. No distension. Normal Bowel Sounds. Back: Lower thoracic tenderness with palpation. Extremities: Moves all four extremities. Upper extremities: Normal inspection. Normal ROM. Lower extremities: 1+ pitting edema bilaterally. normal ROM. Neurological: Normal cognition. AAOx4. Normal speech. Psychological: Normal affect. Normal Mood. Skin: Warm. Dry. Normal color. Course - Re-evaluation Re-evalutation: 03/01/19 18:08 Patient will be admitted for diuresis. Patient has one kidney due to renal cell carcinoma. Kidney function appears within her normal baseline but slightly higher than prior lab draw. Due to pleural effusions and mild hypoxia and shortness of breath and elevated B [employer] will be admitted for further consultation with nephrology cardiology and diuresis. - Vital Signs Vital signs: Temp Pulse Resp BP Pulse Ox 97.6 F 65 17 160/58 H 94 03/01/19 14:01 03/01/19 14:01 03/01/19 17:15 03/01/19 17:15 03/01/19 17:15 - Laboratory Result Diagrams: 03/01/19 14:35 03/01/19 14:35 Laboratory results interpreted by me: 03/01/19 03/01/19 03/01/19 14:35 14:35 14:35 RBC 3.58 L Hgb 11.6 L Hct 35.9 L MCV 100 H RDW 17.4 H Plt Count 85 L Chloride 109 H BUN 26 H Creatinine 2.13 H Est GFR ( Amer) 27 L Est GFR (MDRD) Non-Af 22 L Glucose 146 H Calcium 10.5 H Total Bilirubin 1.4 H Direct Bilirubin 0.7 H NT-Pro-B Natriuret Pep Urine Protein >=500 H 03/01/19 14:35 RBC Hgb Hct MCV RDW Plt Count Chloride BUN Creatinine Est GFR ( Amer) Est GFR (MDRD) Non-Af Glucose Calcium Total Bilirubin Direct Bilirubin NT-Pro-B Natriuret Pep 24046 H Urine Protein Discharge - Discharge Clinical Impression: Pleural effusion, Shortness of breath, Lower extremity edema Congestive heart failure Qualifiers: Heart failure type: unspecified Heart failure chronicity: unspecified Qualified Code(s): I50.9 - Heart failure, unspecified Condition: Good Disposition: ADMITTED INPATIENT Admitting Provider: Faith (Hospitalist) Unit Admitted: Telemetry Referrals: ERIN MEZA MD [ACTIVE STAFF] - Follow up as needed I personally performed the services described in the documentation, reviewed and edited the documentation which was dictated to the scribe in my presence, and it accurately records my words and actions.
[2019-03-01] MEDS ORDERED: MAG HYDROX/AL HYDROX/SIMETH SUSP 30 ML UDCUP PO PRN (18:35)
[2019-03-01] MEDS ORDERED: ACETAMINOPHEN 325 MG TABLET PO PRN (18:35)
[2019-03-01] MEDS ORDERED: ONDANSETRON HCL INJ/PF 4 MG/2 ML SDV IV PRN (18:35)
[2019-03-01] MEDS ORDERED: ALBUTEROL SULFATE 0.083% NEB 2.5 MG/3 ML AMPUL NEB PRN (18:35)
[2019-03-01] MEDS ORDERED: DEXTROSE 40% GEL 15 GM TUBE PO PRN ×2 (18:39)
[2019-03-01] MEDS ORDERED: DEXTROSE 50%-WATER 25 GM/50 ML DISP.SYRIN IV PRN ×2 (18:39)
[2019-03-01] MEDS ORDERED: GLUCAGON,HUMAN RECOMB 1 MG INJ IM PRN (18:39)
[2019-03-01] MEDS ORDERED: OXYCODONE-ACETAMINOPHEN 5-325 MG TABLET PO PRN (18:40)
[2019-03-01] MEDS ORDERED: HYDRALAZINE HCL INJ/PF 20 MG/1 ML SDV IV PRN (18:44)
--- NOTE | 2019-03-01 18:47 | PDOC H&P ---
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 Evaluation in the emergency department revealed hypertension, mild hypoxia on room air (91%), and chronic anemia, creatinine 2.13/BUN 26 (slightly worsened from baseline of 1.6, indeterminate troponin of 0.053, and proBNP of 79,000. Chest x-ray demonstrated bilateral pleural effusions, right greater than the left with mild vascular congestion. Head CT and full spine CT imaging obtained secondary to recent fall; all of which are benign. The patient is referred to the hospitalist service for admission and management of the above stated complaints and findings. Past Medical History Cardiac Medical History: Reports: DVT, Myocardial Infarction, Hyperlipidema, Hypertension Denies: Congestive Heart Failure, Coronary Artery Disease Pulmonary Medical History: Reports: None Neurological Medical History: Reports: Migraine Denies: Seizures Endocrine Medical History: Reports: Diabetes Mellitus Type 2, Hypothyroidism, Obesity Renal/ Medical History: Reports: Chronic Kidney Disease Malignancy Medical History: Reports: Renal (Kidney) Cancer GI Medical History: Reports: Gastroesophageal Reflux Disease Denies: Hepatitis, Hiatal Hernia Musculoskeltal Medical History: Reports: Arthritis, Gout Psychiatric Medical History: Reports: Depression Hematology: Reports: Anemia Denies: Sickle Cell Disease Past Surgical History Past Surgical History: Reports: Appendectomy, Section, Cholecystectomy Denies: Amputation, Mastectomy, Pacemaker Social History Information Source: Patient Lives with: Family Smoking Status: Never Smoker Electronic Cigarette use?: No Frequency of Alcohol Use: None Hx Recreational Drug Use: No Drugs: None Hx Prescription Drug Abuse: No - Advance Directive Resuscitation Status: Full Code Surrogate healthcare decision maker:: The patient's daughter, Mylene Maldonado Family History Family History: Reviewed & Not Pertinent, CVA Parental Family History Reviewed: Yes Children Family History Reviewed: Yes Sibling(s) Family History Reviewed.: Yes Medication/Allergy Home Medications: Glipizide [Glucotrol Xl] 10 mg PO DAILY 08/02/12 Oxycodone HCl 10 mg PO ASDIR PRN 08/02/12 Aspirin [Aspirin EC] 81 mg PO DAILY 07/13/13 Atorvastatin Calcium [Lipitor 80 mg Tablet] 80 mg PO QHS 07/13/13 Nebivolol HCl [Bystolic] 5 mg PO DAILY 07/13/13 Verapamil HCl [Verelan] 360 mg PO DAILY 07/13/13 Oxycodone HCl/Acetaminophen [Percocet 5-325 mg Tablet] 1 - 2 tab PO ASDIR PRN #15 tablet 11/10/13 Cholecalciferol (Vitamin D3) [Vitamin D3] 50,000 unit PO Q7D 06/18/15 Hydralazine HCl 25 mg PO BID 06/18/15 Hydrochlorothiazide 12.5 mg PO DAILY 06/18/15 Insulin Glargine,Hum.rec.anlog [Lantus (Pyxis) Insulin 100 Unit/1 ml 10 ml] 5 unit SUBCUT DAILY 06/18/15 Fentanyl 1 each TD ASDIR PRN 06/30/16 Paroxetine HCl [Paxil] 10 mg PO DAILY 06/30/16 Voltaren Topical 1 applic TOP ASDIR PRN 06/30/16 Cephalexin Monohydrate [Keflex 500 mg Capsule] 500 mg PO BID 8 Days #16 capsule 12/19/18 Allergies/Adverse Reactions: DENZEL Inhibitors [Denzel Inhibitors] Allergy (Verified 03/01/19 16:03) ACEINHIBITORS [DENZEL Inhibitors] Allergy (Verified 03/01/19 16:03) amlodipine besylate [From Norvasc] Allergy (Verified 03/01/19 16:03) exenatide [From Byetta] Allergy (Verified 03/01/19 16:03) Iodinated Contrast Media [IV Dye, Iodine Containing] Allergy (Verified 03/01/19 16:03) metformin [Metformin] Allergy (Verified 03/01/19 16:03) morphine [Morphine] Allergy (Verified 03/01/19 16:03) nitrofurantoin [From Macrobid] Allergy (Verified 03/01/19 16:03) nitrofurantoin macrocrystalline [From Macrobid] Allergy (Verified 03/01/19 16:03) Review of Systems Constitutional: PRESENT: fatigue. ABSENT: chills, fever(s), headache(s), weight gain, weight loss Eyes: ABSENT: visual disturbances Ears: ABSENT: hearing changes Cardiovascular: PRESENT: dyspnea on exertion, edema. ABSENT: chest pain, orthropnea, palpitations Respiratory: ABSENT: cough, hemoptysis Gastrointestinal: ABSENT: abdominal pain, constipation, diarrhea, hematemesis, hematochezia, nausea, vomiting Genitourinary: ABSENT: dysuria, hematuria Musculoskeletal: ABSENT: joint swelling Integumentary: ABSENT: rash, wounds Neurological: ABSENT: abnormal gait, abnormal speech, confusion, dizziness, focal weakness, syncope Psychiatric: ABSENT: anxiety, depression, homidical ideation, suicidal ideation Endocrine: ABSENT: cold intolerance, heat intolerance, polydipsia, polyuria Hematologic/Lymphatic: ABSENT: easy bleeding, easy bruising Physical Exam Vital Signs: Temp Pulse Resp BP Pulse Ox 97.6 F 65 17 160/58 H 94 03/01/19 14:01 03/01/19 14:01 03/01/19 17:15 03/01/19 17:15 03/01/19 17:15 Intake & Output 02/28/19 03/01/19 03/02/19 06:59 06:59 06:59 Weight 68.1 kg General appearance: PRESENT: no acute distress, cooperative, well-developed, well-nourished Head exam: PRESENT: atraumatic, normocephalic Eye exam: PRESENT: conjunctiva pink, EOMI, PERRLA. ABSENT: scleral icterus Ear exam: PRESENT: normal external ear exam Mouth exam: PRESENT: moist, tongue midline Teeth exam: PRESENT: poor dentation Neck exam: ABSENT: carotid bruit, JVD, lymphadenopathy, thyromegaly Respiratory exam: PRESENT: clear to auscultation price, symmetrical, unlabored. ABSENT: rales, rhonchi, wheezes Cardiovascular exam: PRESENT: RRR, +S1, +S2. ABSENT: diastolic murmur, rubs, sy stolic murmur Pulses: PRESENT: normal dorsalis pedis pul Vascular exam: PRESENT: normal capillary refill GI/Abdominal exam: PRESENT: normal bowel sounds, soft. ABSENT: distended, guarding, mass, organolmegaly, rebound, tenderness Rectal exam: PRESENT: deferred Extremities exam: PRESENT: full ROM, pedal edema - +1, pitting, bilaterally. ABSENT: calf tenderness, clubbing Neurological exam: PRESENT: alert, awake, oriented to person, oriented to place, oriented to time, oriented to situation, CN II-XII grossly intact, other - Somewhat forgetful. ABSENT: motor sensory deficit Psychiatric exam: PRESENT: appropriate affect, normal mood. ABSENT: homicidal ideation, suicidal ideation Skin exam: PRESENT: dry, intact, warm. ABSENT: cyanosis, rash Results Laboratory Results: 03/01/19 14:35 03/01/19 14:35 03/01/19 03/01/19 03/01/19 14:35 14:35 14:35 WBC 5.5 RBC 3.58 L Hgb 11.6 L Hct 35.9 L MCV 100 H MCH 32.5 MCHC 32.4 RDW 17.4 H Plt Count 85 L Seg Neutrophils % 67.8 Sodium 142.5 Potassium 4.8 Chloride 109 H Carbon Dioxide 23 Anion Gap 11 BUN 26 H Creatinine 2.13 H Est GFR ( Amer) 27 L Glucose 146 H Calcium 10.5 H Magnesium Total Bilirubin 1.4 H AST 36 Alkaline Phosphatase 101 Total Protein 7.0 Albumin 4.2 Lipase 160.2 Urine Color YELLOW Urine Appearance CLEAR Urine pH 5.0 Ur Specific [place] 1.020 Urine Protein >=500 H Urine Glucose (UA) NEGATIVE Urine Ketones NEGATIVE Urine Blood NEGATIVE Urine RBC (Auto) 0 03/01/19 14:35 WBC RBC Hgb Hct MCV MCH MCHC RDW Plt Count Seg Neutrophils % Sodium Potassium Chloride Carbon Dioxide Anion Gap BUN Creatinine Est GFR ( Amer) Glucose Calcium Magnesium 2.2 Total Bilirubin AST Alkaline Phosphatase Total Protein Albumin Lipase Urine Color Urine Appearance Urine pH Ur Specific [place] Urine Protein Urine Glucose (UA) Urine Ketones Urine Blood Urine RBC (Auto) 03/01/19 03/01/19 14:35 14:35 Troponin I 0.053 NT-Pro-B Natriuret Pep 72180 H Impressions: Chest X-Ray 03/01/19 14:06 IMPRESSION: Bilateral pleural effusions right greater than left. This is new from prior study. Mild vascular congestion. Head CT 03/01/19 16:05 IMPRESSION: NO ACUTE INTRACRANIAL IMAGING FINDINGS. EVIDENCE OF ACUTE STROKE: NO. Cervical Spine CT 03/01/19 16:06 IMPRESSION: No acute osseous abnormality of the cervical spine. Right greater than left pleural effusions. Lumbar Spine CT 03/01/19 16:06 IMPRESSION: No acute osseous abnormality of the lumbar spine. Thoracic Spine CT 03/01/19 16:06 IMPRESSION: No acute osseous abnormality of the thoracic spine. Large right greater than left pleural effusions. Assessment and Plan - Diagnosis (1) Congestive heart failure Qualifiers: Heart failure type: unspecified Heart failure chronicity: acute Qualified Code(s): I50.9 - Heart failure, unspecified Is this a current diagnosis for this admission?: Yes Plan: proBNP elevated to 79,000. Chest x-ray demonstrates bilateral pleural effusions and pulmonary edema. Echocardiogram pending. Trending troponins, although patient denies pain so I highly doubt ACS. The patient is admitted to telemetry. Continue daily aspirin and statin therapy. IV furosemide for diuresis. IV hydralazine as needed for blood pressure control. Resume home dose antihypertensives once reconciled; making appropriate adjustments as needed. Consider cardiology consultation. Consistent carb/cardiac diet. I'&O's, daily weights (2) Acute on chronic kidney failure Qualifiers: Acute renal failure type: unspecified Chronic kidney disease stage: stage 4 (severe) Qualified Code(s): N17.9 - Acute kidney failure, unspecified; N18.4 - Chronic kidney disease, stage 4 (severe) Is this a current diagnosis for this admission?: Yes Plan: Patient is admitted with a creatinine of 2.13, up from baseline of 1.6. Patient has history of nephrectomy secondary to renal carcinoma; previously on hemodialysis. Acute worsening is likely secondary to CHF exacerbation. Patient is followed by Dr. Feliciano. Will optimize cardiac output. Avoid nephrotoxic medications as able. Monitor daily chemistries. Consider nephrology consultation if worsens. 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 lab work. Registered dietitian is consulted. Consistent carb/cardiac diet. Accu-Cheks before meals and at bedtime with sliding scale insulin. Hypoglycemia protocol. (4) Opiate dependence, continuous Is this a current diagnosis for this admission?: Yes Plan: Patient endorses opiate dependent chronic back pain. She utilizes both a fentanyl patch and as needed Percocet. Oxycodone 5/325 every 4 as needed. We will continue fentanyl patch once reconciled. (5) Pleural effusion Is this a current diagnosis for this admission?: Yes Plan: Secondary #1. Evaluation management as above. Patient is currently comfortable at rest while on room air; should she developed worsening respiratory status, will consider thoracentesis.
[2019-03-01] MEDS: FUROSEMIDE INJ/PF 20 MG/2 ML SDV IV SCH (20:13)
[2019-03-01] MEDS ORDERED: HEPARIN SOD (PORCINE) 5,000 UNIT/ML 1 ML VIAL SUBCUT SCH (22:00)
[2019-03-01] MEDS ORDERED: ATORVASTATIN CALCIUM 40 MG TABLET PO SCH (22:00)
[2019-03-01] MEDS: INSULIN LISPRO 100 UNIT/ML 3 ML VIAL SUBCUT SCH (22:11)
[2019-03-02] MEDS: OXYCODONE-ACETAMINOPHEN 5-325 MG TABLET PO PRN ×4 (02:50→21:18)
[2019-03-02] MEDS: FUROSEMIDE INJ/PF 20 MG/2 ML SDV IV SCH ×2 (05:33→17:06)
[2019-03-02] MEDS: PANTOPRAZOLE SODIUM 20 MG TABLET.DR PO SCH (05:33)
[2019-03-02 06:04] LABS: HEMATOCRIT 29.7 % (36.0-47.0); HEMOGLOBIN 9.7 g/dL (12.0-15.5); MEAN CORPUSCULAR HEMOGLOBIN 32.3 pg (27.0-33.4); MEAN CORPUSCULAR HGB CONC 32.8 g/dL (32.0-36.0); MEAN CORPUSCULAR VOLUME 98 fl (80-97); RED BLOOD COUNT 3.02 10^6/uL (3.72-5.28); RED CELL DISTRIBUTION WIDTH 17.2 % (11.5-14.0); WHITE BLOOD COUNT 3.5 10^3/uL (4.0-10.5)
[2019-03-02 06:22] LABS: ANION GAP 6 (5-19); BLOOD UREA NITROGEN 25 mg/dL (7-20); CALCIUM 9.7 mg/dL (8.4-10.2); CARBON DIOXIDE 27 mmol/L (22-30); CHLORIDE 109 mmol/L (98-107); CHOLESTEROL 80.29 mg/dL (0-200); GLUCOSE 111 mg/dL (75-110); POTASSIUM 4.2 mmol/L (3.6-5.0); TRIGLYCERIDES 74 mg/dL (<150)
[2019-03-02 06:33] LABS: DIRECT LDL 44 mg/dL (<100)
[2019-03-02 06:40] LABS: PLATELET COUNT 55 10^3/uL (150-450)
[2019-03-02] MEDS: INSULIN LISPRO 100 UNIT/ML 3 ML VIAL SUBCUT SCH ×4 (07:57→21:20)
[2019-03-02] MEDS ORDERED: (PENDING PHARMACY ID) (Paroxetine Hcl [Paxil] 10 MG) PO SCH (10:00)
[2019-03-02] MEDS: PAROXETINE HCL 20 MG TABLET PO SCH (10:23)
[2019-03-02] MEDS: METOPROLOL SUCCINATE 50 MG TAB.SR.24H PO SCH (10:25)
[2019-03-02] MEDS: ASPIRIN 81 MG TABLET, CHEWABLE PO SCH (10:25)
[2019-03-02] MEDS: MAGNESIUM OXIDE 400 MG TABLET PO SCH ×2 (10:25→17:05)
[2019-03-02] MEDS: DOCUSATE SODIUM 100 MG CAPSULE PO SCH (10:26)
--- NOTE | 2019-03-02 15:05 | PDOC PROGRESS REPORT ---
Subjective Progress Note for:: 03/02/19 Subjective:: MAGGI HARRINGTON is a 83 year old female with a past medical history of STEMI, hypertension, hyperlipidemia, CKD 4, Nephrectomy secondary to renal carcinoma previously on hemodialysis, diabetes, hypothyroidism, obesity, GERD, depression, and opiate dependent chronic pain who was admitted 03/01/2019 for acute CHF exacerbation. Patient was seen on afternoon rounds; she is found resting in bed comfortably on supplemental oxygen via nasal cannula 2 L/min. She does report that she uses oxygen nightly and and as needed at home. She was found to be lying supine without increased work of breathing. She tells me that she is feeling much better today. She denies shortness of breath or cough. Pedal edema is much improved. She denies fever, chills, chest pain, palpitations or dyspnea, orthopnea, abdominal pain, nausea vomiting diarrhea. She did work with physical therapy today and was ambulatory in the hallway with assistance. She has no new questions or concerns. No concerns per nursing. Reason For Visit: ACUTE CHF EXACERBATION Physical Exam Vital Signs: Temp Pulse Resp BP Pulse Ox 97.4 F 58 L 18 168/62 H 96 03/02/19 11:53 03/02/19 11:53 03/02/19 11:53 03/02/19 11:53 03/02/19 11:53 Intake & Output 03/01/19 03/02/19 03/03/19 06:59 06:59 06:59 Intake Total 470 986 Output Total 1000 800 Balance -530 186 Weight 68.4 kg General appearance: PRESENT: no acute distress, cooperative, obese, well- developed, well-nourished Head exam: PRESENT: atraumatic, normocephalic Eye exam: PRESENT: conjunctiva pink, EOMI, PERRLA. ABSENT: scleral icterus Ear exam: PRESENT: normal external ear exam Mouth exam: PRESENT: moist, tongue midline Respiratory exam: PRESENT: clear to auscultation price, symmetrical, unlabored, other - Baseline oxygen requirement. ABSENT: rales, rhonchi, wheezes Cardiovascular exam: PRESENT: RRR, +S1, +S2. ABSENT: diastolic murmur, rubs, systolic murmur Pulses: PRESENT: normal dorsalis pedis pul Vascular exam: PRESENT: normal capillary refill Extremities exam: PRESENT: full ROM, pedal edema - +1 pitting edema bilaterally; improved from yesterday. ABSENT: calf tenderness, clubbing Neurological exam: PRESENT: alert, awake, oriented to person, oriented to place, oriented to time, oriented to situation, CN II-XII grossly intact. ABSENT: motor sensory deficit Psychiatric exam: PRESENT: appropriate affect, normal mood. ABSENT: homicidal ideation, suicidal ideation Skin exam: PRESENT: dry, intact, warm. ABSENT: cyanosis, rash Results Laboratory Results: 03/02/19 05:30 03/02/19 05:30 03/01/19 03/01/19 03/01/19 14:35 14:35 14:35 WBC 5.5 RBC 3.58 L Hgb 11.6 L Hct 35.9 L MCV 100 H MCH 32.5 MCHC 32.4 RDW 17.4 H Plt Count 85 L Seg Neutrophils % 67.8 Sodium 142.5 Potassium 4.8 Chloride 109 H Carbon Dioxide 23 Anion Gap 11 BUN 26 H Creatinine 2.13 H Est GFR ( Amer) 27 L Glucose 146 H Calcium 10.5 H Magnesium Total Bilirubin 1.4 H AST 36 Alkaline Phosphatase 101 Total Protein 7.0 Albumin 4.2 Triglycerides Cholesterol LDL Cholesterol Direct VLDL Cholesterol HDL Cholesterol Lipase 160.2 TSH Urine Color YELLOW Urine Appearance CLEAR Urine pH 5.0 Ur Specific [place] 1.020 Urine Protein >=500 H Urine Glucose (UA) NEGATIVE Urine Ketones NEGATIVE Urine Blood NEGATIVE Urine RBC (Auto) 0 03/01/19 03/02/19 03/02/19 14:35 05:30 05:30 WBC 3.5 L RBC 3.02 L Hgb 9.7 L Hct 29.7 L MCV 98 H MCH 32.3 MCHC 32.8 RDW 17.2 H Plt Count 55 L Seg Neutrophils % Sodium 142.3 Potassium 4.2 Chloride 109 H Carbon Dioxide 27 Anion Gap 6 BUN 25 H Creatinine 2.19 H Est GFR ( Amer) 26 L Glucose 111 H Calcium 9.7 Magnesium 2.2 Total Bilirubin AST Alkaline Phosphatase Total Protein Albumin Triglycerides 74 Cholesterol 80.29 LDL Cholesterol Direct 44 VLDL Cholesterol 15.0 HDL Cholesterol 30 L Lipase TSH Urine Color Urine Appearance Urine pH Ur Specific [place] Urine Protein Urine Glucose (UA) Urine Ketones Urine Blood Urine RBC (Auto) 03/02/19 05:30 WBC RBC Hgb Hct MCV MCH MCHC RDW Plt Count Seg Neutrophils % Sodium Potassium Chloride Carbon Dioxide Anion Gap BUN Creatinine Est GFR ( Amer) Glucose Calcium Magnesium Total Bilirubin AST Alkaline Phosphatase Total Protein Albumin Triglycerides Cholesterol LDL Cholesterol Direct VLDL Cholesterol HDL Cholesterol Lipase TSH 1.90 Urine Color Urine Appearance Urine pH Ur Specific [place] Urine Protein Urine Glucose (UA) Urine Ketones Urine Blood Urine RBC (Auto) 03/01/19 03/01/19 03/01/19 14:35 14:35 21:00 Troponin I 0.053 0.052 NT-Pro-B Natriuret Pep [id number] H 03/02/19 03:06 Troponin I 0.056 NT-Pro-B Natriuret Pep Impressions: Chest X-Ray 03/01/19 14:06 IMPRESSION: Bilateral pleural effusions right greater than left. This is new from prior study. Mild vascular congestion. Head CT 03/01/19 16:05 IMPRESSION: NO ACUTE INTRACRANIAL IMAGING FINDINGS. EVIDENCE OF ACUTE STROKE: NO. Cervical Spine CT 03/01/19 16:06 IMPRESSION: No acute osseous abnormality of the cervical spine. Right greater than left pleural effusions. Lumbar Spine CT 03/01/19 16:06 IMPRESSION: No acute osseous abnormality of the lumbar spine. Thoracic Spine CT 03/01/19 16:06 IMPRESSION: No acute osseous abnormality of the thoracic spine. Large right greater than left pleural effusions. Assessment and Plan - Diagnosis (1) Congestive heart failure Qualifiers: Heart failure type: unspecified Heart failure chronicity: acute Qualified Code(s): I50.9 - Heart failure, unspecified Is this a current diagnosis for this admission?: Yes Plan: Improved; now lying supine on baseline oxygen requirement without dyspnea. Pedal edema is improved. proBNP elevated to 79,000. Chest x-ray demonstrates bilateral pleural effusions and pulmonary edema. Echocardiogram pending. Troponin stable; no longer trending. The patient is admitted to telemetry. Continue daily aspirin and statin therapy. IV furosemide for diuresis. Have resumed home dose metoprolol Consider cardiology consultation. Consistent carb/cardiac diet. I'&O's, daily weights (2) Acute on chronic kidney failure Qualifiers: Acute renal failure type: unspecified Chronic kidney disease stage: stage 4 (severe) Qualified Code(s): N17.9 - Acute kidney failure, unspecified; N18.4 - Chronic kidney disease, stage 4 (severe) Is this a current diagnosis for this admission?: Yes Plan: Patient is admitted with a creatinine of 2.13, up from baseline of 1.6. Patient has history of nephrectomy secondary to renal carcinoma; previously on hemodialysis. Acute worsening is likely secondary to CHF exacerbation. Patient is followed by Dr. Feliciano. Will optimize cardiac output. Avoid nephrotoxic medications as able. Monitor daily chemistries. Consider nephrology consultation if worsens. (3) Diabetes Qualifiers: Diabetes mellitus type: type 2 Diabetes mellitus fpc insulin use: with fpc use Chronic kidney disease stage: stage 4 (severe) Is this a current diagnosis for this admission?: Yes Plan: A1C 5.7%; well controlled. Registered dietitian is consulted. Consistent carb/cardiac diet. Continue home dose Lantus Accu-Cheks before meals and at bedtime with sliding scale insulin. Hypoglycemia protocol. (4) Opiate dependence, continuous Is this a current diagnosis for this admission?: Yes Plan: Patient endorses opiate dependent chronic back pain. Continue home dose Oxycodone 5/325 every 4 as needed. Continue home dose Butrans patch (5) Pleural effusion Is this a current diagnosis for this admission?: Yes Plan: Secondary #1. Evaluation management as above. Patient is currently comfortable at rest while on room air; should she developed worsening respiratory status, will consider thoracentesis. - Time Time Spent with patient: 25-34 minutes Medications reviewed and adjusted accordingly: Yes Anticipated discharge: Home with Homehealth Within: within 48 hours
[2019-03-02] MEDS: ATORVASTATIN CALCIUM 40 MG TABLET PO SCH (21:18)
[2019-03-02] MEDS: INSULIN GLARGINE,HUM.REC.ANLOG 1,000 UNIT/10 ML VIAL SUBCUT SCH (21:20)
--- NOTE | 2019-03-02 21:38 | EKG REPORT ---
SEVERITY:- ABNORMAL ECG - SINUS RHYTHM ATRIAL PREMATURE COMPLEX PROBABLE INFERIOR INFARCT, AGE INDETERMINATE ANTERIOR INFARCT, AGE INDETERMINATE : Confirmed by: Sumit Bowman 02-Mar-2019 21:37:54
[2019-03-03] MEDS: FUROSEMIDE INJ/PF 20 MG/2 ML SDV IV SCH ×3 (05:46→21:31)
[2019-03-03] MEDS: PANTOPRAZOLE SODIUM 20 MG TABLET.DR PO SCH (05:47)
[2019-03-03] MEDS: OXYCODONE-ACETAMINOPHEN 5-325 MG TABLET PO PRN ×3 (05:47→23:09)
[2019-03-03 06:49] LABS: HEMATOCRIT 31.2 % (36.0-47.0); HEMOGLOBIN 10.2 g/dL (12.0-15.5); MEAN CORPUSCULAR HEMOGLOBIN 31.8 pg (27.0-33.4); MEAN CORPUSCULAR HGB CONC 32.7 g/dL (32.0-36.0); MEAN CORPUSCULAR VOLUME 97 fl (80-97); WHITE BLOOD COUNT 4.9 10^3/uL (4.0-10.5)
[2019-03-03 06:54] LABS: ANION GAP 8 (5-19); BLOOD UREA NITROGEN 28 mg/dL (7-20); CALCIUM 10.1 mg/dL (8.4-10.2); CARBON DIOXIDE 31 mmol/L (22-30); CHLORIDE 102 mmol/L (98-107); GLUCOSE 72 mg/dL (75-110); POTASSIUM 4.2 mmol/L (3.6-5.0)
[2019-03-03] MEDS: INSULIN LISPRO 100 UNIT/ML 3 ML VIAL SUBCUT SCH ×4 (07:14→21:35)
[2019-03-03 07:17] LABS: PLATELET COUNT 73 10^3/uL (150-450)
[2019-03-03] MEDS: PAROXETINE HCL 20 MG TABLET PO SCH (10:23)
[2019-03-03] MEDS: ASPIRIN 81 MG TABLET, CHEWABLE PO SCH (10:23)
[2019-03-03] MEDS: MAGNESIUM OXIDE 400 MG TABLET PO SCH ×2 (10:24→16:59)
[2019-03-03] MEDS: DOCUSATE SODIUM 100 MG CAPSULE PO SCH (10:26)
[2019-03-03] MEDS: METOPROLOL SUCCINATE 50 MG TAB.SR.24H PO SCH (10:26)
--- NOTE | 2019-03-03 12:38 | PDOC PROGRESS REPORT ---
Subjective Progress Note for:: 03/03/19 Subjective:: MAGGI HARRINGTON is a 83 year old female with a past medical history of STEMI, hypertension, hyperlipidemia, CKD 4, Nephrectomy secondary to renal carcinoma previously on hemodialysis, diabetes, hypothyroidism, obesity, GERD, depression, and opiate dependent chronic pain who was admitted 03/01/2019 for acute CHF exacerbation. Patient was seen on morning rounds; she is found ambulating in her room, independently, on room air. She tells me that she is feeling well today. She denies shortness of breath or cough. Pedal edema is much improved. She denies fever, chills, chest pain, palpitations or dyspnea, orthopnea, abdominal pain, nausea vomiting diarrhea. She has no new questions or concerns. No concerns per nursing. Reason For Visit: ACUTE CHF EXACERBATION Physical Exam Vital Signs: Temp Pulse Resp BP Pulse Ox 97.7 F 55 L 17 164/55 H 97 03/03/19 10:53 03/03/19 10:53 03/03/19 10:53 03/03/19 10:53 03/03/19 10:53 Intake & Output 03/02/19 03/03/19 03/04/19 06:59 06:59 06:59 Intake Total 470 1846 Output Total 1000 2100 Balance -530 -254 Weight 68.4 kg 68.5 kg General appearance: PRESENT: no acute distress, cooperative, well-developed, well-nourished Head exam: PRESENT: atraumatic, normocephalic Eye exam: PRESENT: conjunctiva pink, EOMI, PERRLA. ABSENT: scleral icterus Ear exam: PRESENT: normal external ear exam Mouth exam: PRESENT: moist, tongue midline Respiratory exam: PRESENT: clear to auscultation price, symmetrical, unlabored. ABSENT: rales, rhonchi, wheezes Cardiovascular exam: PRESENT: RRR, +S1, +S2. ABSENT: diastolic murmur, rubs, systolic murmur Pulses: PRESENT: normal dorsalis pedis pul Vascular exam: PRESENT: normal capillary refill Extremities exam: PRESENT: full ROM, pedal edema - +1 bilaterally. ABSENT: calf tenderness, clubbing Musculoskeletal exam: PRESENT: ambulatory Neurological exam: PRESENT: alert, awake, oriented to person, oriented to place, oriented to time, oriented to situation, CN II-XII grossly intact. ABSENT: motor sensory deficit Psychiatric exam: PRESENT: appropriate affect, normal mood. ABSENT: homicidal ideation, suicidal ideation Skin exam: PRESENT: dry, intact, warm. ABSENT: cyanosis, rash Results Laboratory Results: 03/03/19 06:00 03/03/19 06:00 03/03/19 03/03/19 06:00 06:00 WBC 4.9 RBC 3.20 L Hgb 10.2 L Hct 31.2 L MCV 97 MCH 31.8 MCHC 32.7 RDW 17.0 H Plt Count 73 L Sodium 140.6 Potassium 4.2 Chloride 102 Carbon Dioxide 31 H Anion Gap 8 BUN 28 H Creatinine 2.22 H Est GFR ( Amer) 25 L Glucose 72 L Calcium 10.1 03/01/19 03/01/19 03/01/19 14:35 14:35 21:00 Troponin I 0.053 0.052 NT-Pro-B Natriuret Pep 12870 H 03/02/19 03/03/19 03:06 06:00 Troponin I 0.056 NT-Pro-B Natriuret Pep 03463 H Impressions: Chest X-Ray 03/01/19 14:06 IMPRESSION: Bilateral pleural effusions right greater than left. This is new from prior study. Mild vascular congestion. Head CT 03/01/19 16:05 IMPRESSION: NO ACUTE INTRACRANIAL IMAGING FINDINGS. EVIDENCE OF ACUTE STROKE: NO. Cervical Spine CT 03/01/19 16:06 IMPRESSION: No acute osseous abnormality of the cervical spine. Right greater than left pleural effusions. Lumbar Spine CT 03/01/19 16:06 IMPRESSION: No acute osseous abnormality of the lumbar spine. Thoracic Spine CT 03/01/19 16:06 IMPRESSION: No acute osseous abnormality of the thoracic spine. Large right greater than left pleural effusions. Assessment and Plan - Diagnosis (1) Congestive heart failure Qualifiers: Heart failure type: unspecified Heart failure chronicity: acute Qualified Code(s): I50.9 - Heart failure, unspecified Is this a current diagnosis for this admission?: Yes Plan: Improved; now lying supine on baseline oxygen requirement without dyspnea. Pedal edema is improved. proBNP elevated to 79k -> 69k Chest x-ray demonstrates bilateral pleural effusions and pulmonary edema. Echocardiogram pending. Troponin stable; no longer trending. The patient is admitted to telemetry. Continue daily aspirin and statin therapy. IV furosemide for diuresis; increased frequency today Continue home dose metoprolol Consider cardiology consultation. Consistent carb/cardiac diet; fluid restriction. I'&O's, daily weights (2) Acute on chronic kidney failure Qualifiers: Acute renal failure type: unspecified Chronic kidney disease stage: stage 4 (severe) Qualified Code(s): N17.9 - Acute kidney failure, unspecified; N18.4 - Chronic kidney disease, stage 4 (severe) Is this a current diagnosis for this admission?: Yes Plan: Patient is admitted with a creatinine of 2.22, up from baseline of 1.6. Overall stable; ? new baseline Patient has history of nephrectomy secondary to renal carcinoma; previously on hemodialysis. Acute worsening is likely secondary to CHF exacerbation. Patient is followed by Dr. Feliciano. Will optimize cardiac output. Avoid nephrotoxic medications as able. Monitor daily chemistries. Consider nephrology consultation if worsens. 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 Registered dietitian is consulted. Consistent carb/cardiac diet. Continue home dose Lantus Accu-Cheks before meals and at bedtime with sliding scale insulin. Hypoglycemia protocol. (4) Opiate dependence, continuous Is this a current diagnosis for this admission?: Yes Plan: Patient endorses opiate dependent chronic back pain. Continue home dose Oxycodone 5/325 every 4 as needed. Continue home dose Butrans patch (5) Pleural effusion Is this a current diagnosis for this admission?: Yes Plan: Secondary #1. Evaluation management as above. Patient is currently comfortable and ambulatory room air Should she developed worsening respiratory status, will consider thoracentesis. Follow up CXR. - Time Time Spent with patient: 25-34 minutes Medications reviewed and adjusted accordingly: Yes Anticipated discharge: Home Within: within 48 hours
--- NOTE | 2019-03-03 15:58 | RADIOLOGY REPORT (SQ) ---
EXAM DESCRIPTION: CHEST SINGLE VIEW COMPLETED DATE/TIME: 03/03/2019 3:41 pm REASON FOR STUDY: pleural effusion COMPARISON: 03/01/2019 EXAM PARAMETERS: NUMBER OF VIEWS: One view. TECHNIQUE: Single frontal radiographic view of the chest acquired. RADIATION DOSE: NA LIMITATIONS: None. FINDINGS: LUNGS AND PLEURA: Persistent right effusion and small left effusion. Increase in opacity at the right base. MEDIASTINUM AND HILAR STRUCTURES: No masses. Contour normal. HEART AND VASCULAR STRUCTURES: Heart is enlarged. Increased vascular congestion. BONES: No acute findings. HARDWARE: Venous access catheter unchanged. OTHER: No other significant finding. IMPRESSION: Increased vascular congestion. Persistent left effusion. New right basilar opacity. TECHNICAL DOCUMENTATION: JOB ID: [id number] [employer]- All Rights Reserved Reading location - IP/workstation name: [email or web address]
[2019-03-03] MEDS: ATORVASTATIN CALCIUM 40 MG TABLET PO SCH (21:31)
[2019-03-03] MEDS: INSULIN GLARGINE,HUM.REC.ANLOG 1,000 UNIT/10 ML VIAL SUBCUT SCH (21:32)
[2019-03-04] MEDS: PANTOPRAZOLE SODIUM 20 MG TABLET.DR PO SCH (05:46)
[2019-03-04] MEDS: FUROSEMIDE INJ/PF 20 MG/2 ML SDV IV SCH (05:46)
[2019-03-04 06:28] LABS: ANION GAP 5 (5-19); BLOOD UREA NITROGEN 31 mg/dL (7-20); CALCIUM 9.3 mg/dL (8.4-10.2); CARBON DIOXIDE 31 mmol/L (22-30); CHLORIDE 103 mmol/L (98-107); GLUCOSE 105 mg/dL (75-110); POTASSIUM 3.8 mmol/L (3.6-5.0)
[2019-03-04] MEDS ORDERED: ACETAMINOPHEN 325 MG TABLET PO PRN (07:19)
[2019-03-04] MEDS ORDERED: ONDANSETRON HCL INJ/PF 4 MG/2 ML SDV IV PRN (07:30)
[2019-03-04] MEDS: INSULIN LISPRO 100 UNIT/ML 3 ML VIAL SUBCUT SCH ×4 (07:41→21:21)
[2019-03-04] MEDS: MAGNESIUM OXIDE 400 MG TABLET PO SCH ×2 (10:16→18:28)
[2019-03-04] MEDS: PAROXETINE HCL 20 MG TABLET PO SCH (10:16)
[2019-03-04] MEDS: METOPROLOL SUCCINATE 50 MG TAB.SR.24H PO SCH (10:16)
[2019-03-04] MEDS: CALCITRIOL 0.25 MCG CAPSULE PO SCH (10:16)
[2019-03-04] MEDS: OXYCODONE-ACETAMINOPHEN 5-325 MG TABLET PO PRN ×2 (10:17→18:32)
[2019-03-04] MEDS: ASPIRIN 81 MG TABLET, CHEWABLE PO SCH (10:17)
[2019-03-04] MEDS: FUROSEMIDE 20 MG TABLET PO SCH ×2 (10:23→18:28)
[2019-03-04] MEDS: DOCUSATE SODIUM 100 MG CAPSULE PO SCH (10:23)
[2019-03-04] MEDS: LOSARTAN POTASSIUM 25 MG TABLET PO SCH (10:23)
--- NOTE | 2019-03-04 15:54 | PDOC PROGRESS REPORT ---
Subjective Progress Note for:: 03/04/19 Subjective:: MAGGI HARRINGTON is a 83 year old female with a past medical history of STEMI, hypertension, hyperlipidemia, CKD 4, Nephrectomy secondary to renal carcinoma previously on hemodialysis, diabetes, hypothyroidism, obesity, GERD, depression, and opiate dependent chronic pain who was admitted 03/01/2019 for acute CHF exacerbation. Patient was seen on afternoon rounds. She was found resting in bed comfortably on room air. She tells me she is feeling well; very happy with improvement in her peripheral edema. She denies fever, chills, chest pain, palpitations, dyspnea, orthopnea, abdominal pain, nausea, vomiting, and diarrhea. She has no new questions or concerns. No concerns per nursing. Reason For Visit: ACUTE CHF EXACERBATION Physical Exam Vital Signs: Temp Pulse Resp BP Pulse Ox 98.1 F 56 L 15 123/48 L 97 03/04/19 11:07 03/04/19 11:07 03/04/19 11:07 03/04/19 11:07 03/04/19 11:07 Intake & Output 03/03/19 03/04/19 03/05/19 06:59 06:59 06:59 Intake Total 1846 822 Output Total 2100 2300 Balance -254 -1478 Weight 68.5 kg 67.2 kg General appearance: PRESENT: no acute distress, cooperative, well-developed, well-nourished Head exam: PRESENT: atraumatic, normocephalic Eye exam: PRESENT: conjunctiva pink, EOMI, PERRLA. ABSENT: scleral icterus Ear exam: PRESENT: normal external ear exam Mouth exam: PRESENT: moist, tongue midline Neck exam: ABSENT: carotid bruit, JVD, lymphadenopathy, thyromegaly Respiratory exam: PRESENT: clear to auscultation price, symmetrical, unlabored. ABSENT: rales, rhonchi, wheezes Cardiovascular exam: PRESENT: RRR, +S1, +S2. ABSENT: diastolic murmur, rubs, systolic murmur Pulses: PRESENT: normal dorsalis pedis pul Vascular exam: PRESENT: normal capillary refill Extremities exam: PRESENT: full ROM, pedal edema - trace bilaterally; significantly improved. ABSENT: calf tenderness, clubbing Neurological exam: PRESENT: alert, awake, oriented to person, oriented to place, oriented to time, oriented to situation, CN II-XII grossly intact. ABSENT: motor sensory deficit Psychiatric exam: PRESENT: appropriate affect, normal mood. ABSENT: homicidal ideation, suicidal ideation Skin exam: PRESENT: dry, intact, warm. ABSENT: cyanosis, rash Results Laboratory Results: 03/03/19 06:00 03/04/19 05:50 03/04/19 05:50 Sodium 138.8 Potassium 3.8 Chloride 103 Carbon Dioxide 31 H Anion Gap 5 BUN 31 H Creatinine 2.26 H Est GFR ( Amer) 25 L Glucose 105 Calcium 9.3 03/01/19 03/01/19 03/01/19 14:35 14:35 21:00 Troponin I 0.053 0.052 NT-Pro-B Natriuret Pep [id number] H 03/02/19 03/03/19 03:06 06:00 Troponin I 0.056 NT-Pro-B Natriuret Pep 03311 H Impressions: Head CT 03/01/19 16:05 IMPRESSION: NO ACUTE INTRACRANIAL IMAGING FINDINGS. EVIDENCE OF ACUTE STROKE: NO. Cervical Spine CT 03/01/19 16:06 IMPRESSION: No acute osseous abnormality of the cervical spine. Right greater than left pleural effusions. Lumbar Spine CT 03/01/19 16:06 IMPRESSION: No acute osseous abnormality of the lumbar spine. Thoracic Spine CT 03/01/19 16:06 IMPRESSION: No acute osseous abnormality of the thoracic spine. Large right greater than left pleural effusions. Chest X-Ray 03/03/19 00:00 IMPRESSION: Increased vascular congestion. Persistent left effusion. New right basilar opacity. Assessment and Plan - Diagnosis (1) Congestive heart failure Qualifiers: Heart failure type: unspecified Heart failure chronicity: acute Qualified Code(s): I50.9 - Heart failure, unspecified Is this a current diagnosis for this admission?: Yes Plan: Improved; now ambulatory on room air and able to lie supine on baseline oxygen requirement without dyspnea. Pedal edema is improved. proBNP elevated to 79k -> 69k Chest x-ray demonstrates bilateral pleural effusions and pulmonary edema. Follow up CXR unchanged. Echocardiogram pending. Troponin stable; no longer trending. The patient is admitted to telemetry. Continue daily aspirin and statin therapy. Transition to oral furosemide 40 mg BID; takes 20 BID at home. Continue home dose metoprolol Consider cardiology consultation. Consistent carb/cardiac diet; fluid restriction. I'&O's, daily weights (2) Acute on chronic kidney failure Qualifiers: Acute renal failure type: unspecified Chronic kidney disease stage: stage 4 (severe) Qualified Code(s): N17.9 - Acute kidney failure, unspecified; N18.4 - Chronic kidney disease, stage 4 (severe) Is this a current diagnosis for this admission?: Yes Plan: Patient is admitted with a creatinine of 2.22, up from baseline of 1.6. Overall stable; perhaps this is patient's new baseline 2.13-> 2.19-> 2.22-> 2.26 Patient has history of nephrectomy secondary to renal carcinoma; previously on hemodialysis. Acute worsening is likely secondary to CHF exacerbation. Patient is followed by Dr. Feliciano. Will optimize cardiac output. Avoid nephrotoxic medications as able. Monitor daily chemistries. Consider nephrology consultation if worsens. 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 Registered dietitian is consulted. Consistent carb/cardiac diet. Continue home dose Lantus Accu-Cheks before meals and at bedtime with sliding scale insulin. Hypoglycemia protocol. (4) Opiate dependence, continuous Is this a current diagnosis for this admission?: Yes Plan: Patient endorses opiate dependent chronic back pain. Continue home dose Oxycodone 5/325 every 4 as needed. Continue home dose Butrans patch (5) Pleural effusion Is this a current diagnosis for this admission?: Yes Plan: Secondary #1. Evaluation management as above. Asymptomatic; patient is currently comfortable and ambulatory room air Should she developed worsening respiratory status, will consider thoracentesis. Follow up CXR. - Time Time Spent with patient: 25-34 minutes Medications reviewed and adjusted accordingly: Yes Anticipated discharge: Home Within: within 24 hours - Pending echo results and if remains stable on oral furosemide
[2019-03-04] MEDS: INSULIN GLARGINE,HUM.REC.ANLOG 1,000 UNIT/10 ML VIAL SUBCUT SCH (21:17)
[2019-03-04] MEDS: ATORVASTATIN CALCIUM 40 MG TABLET PO SCH (21:17)
[2019-03-05] MEDS: OXYCODONE-ACETAMINOPHEN 5-325 MG TABLET PO PRN ×3 (02:18→17:18)
[2019-03-05] MEDS: PANTOPRAZOLE SODIUM 20 MG TABLET.DR PO SCH (05:45)
[2019-03-05 06:12] LABS: HEMATOCRIT 29.1 % (36.0-47.0); HEMOGLOBIN 9.6 g/dL (12.0-15.5); MEAN CORPUSCULAR HEMOGLOBIN 31.9 pg (27.0-33.4); MEAN CORPUSCULAR HGB CONC 32.9 g/dL (32.0-36.0); MEAN CORPUSCULAR VOLUME 97 fl (80-97); RED CELL DISTRIBUTION WIDTH 16.9 % (11.5-14.0); WHITE BLOOD COUNT 3.8 10^3/uL (4.0-10.5)
[2019-03-05 06:40] LABS: PLATELET COUNT 60 10^3/uL (150-450)
[2019-03-05] MEDS: INSULIN LISPRO 100 UNIT/ML 3 ML VIAL SUBCUT SCH ×4 (07:49→23:16)
[2019-03-05 07:58] LABS: ANION GAP 7 (5-19); BLOOD UREA NITROGEN 34 mg/dL (7-20); CALCIUM 9.9 mg/dL (8.4-10.2); CARBON DIOXIDE 33 mmol/L (22-30); CHLORIDE 100 mmol/L (98-107); GLUCOSE 103 mg/dL (75-110)
[2019-03-05] MEDS: PAROXETINE HCL 20 MG TABLET PO SCH (09:46)
[2019-03-05] MEDS: MAGNESIUM OXIDE 400 MG TABLET PO SCH ×2 (09:46→17:16)
[2019-03-05] MEDS: METOPROLOL SUCCINATE 50 MG TAB.SR.24H PO SCH (09:46)
[2019-03-05] MEDS: FUROSEMIDE 20 MG TABLET PO SCH ×2 (09:47→17:16)
[2019-03-05] MEDS: ASPIRIN 81 MG TABLET, CHEWABLE PO SCH (09:47)
[2019-03-05] MEDS: DOCUSATE SODIUM 100 MG CAPSULE PO SCH (09:48)
[2019-03-05] MEDS: LOSARTAN POTASSIUM 25 MG TABLET PO SCH (09:48)
[2019-03-05] MEDS ORDERED: (PENDING PHARMACY ID) (Buprenorphine [Butrans] 1 EACH) TD SCH (10:00)
--- NOTE | 2019-03-05 11:10 | PDOC PROGRESS REPORT ---
Subjective Progress Note for:: 03/05/19 Subjective:: 03/05/2019-no complaints this a.m. Reason For Visit: ACUTE CHF EXACERBATION Physical Exam Vital Signs: Temp Pulse Resp BP Pulse Ox 98.4 F 58 L 18 113/74 99 03/05/19 07:19 03/05/19 07:19 03/05/19 07:19 03/05/19 07:19 03/05/19 07:19 Intake & Output 03/04/19 03/05/19 03/06/19 06:59 06:59 06:59 Intake Total 822 1308 Output Total 2300 800 Balance -1478 508 Weight 67.2 kg 66 kg General appearance: PRESENT: no acute distress, well-developed, well-nourished Neck exam: ABSENT: carotid bruit, JVD, lymphadenopathy, thyromegaly Respiratory exam: PRESENT: clear to auscultation price, decreased breath sounds, symmetrical, unlabored. ABSENT: rales, rhonchi, wheezes Cardiovascular exam: PRESENT: RRR. ABSENT: diastolic murmur, rubs, systolic murmur Pulses: PRESENT: +1 pedal pulses bilateral Vascular exam: PRESENT: normal capillary refill GI/Abdominal exam: PRESENT: normal bowel sounds, soft. ABSENT: distended, guarding, mass, organolmegaly, rebound, tenderness Extremities exam: PRESENT: full ROM, +1 edema. ABSENT: calf tenderness, clubbing, pedal edema Neurological exam: PRESENT: alert, awake, oriented to person, oriented to place, oriented to time, oriented to situation, CN II-XII grossly intact. ABSENT: motor sensory deficit Psychiatric exam: PRESENT: appropriate affect, normal mood. ABSENT: homicidal ideation, suicidal ideation Skin exam: PRESENT: dry, intact, warm. ABSENT: cyanosis, rash Results Laboratory Results: 03/05/19 06:00 03/05/19 05:47 03/05/19 03/05/19 05:47 06:00 WBC 3.8 L RBC 3.00 L Hgb 9.6 L Hct 29.1 L MCV 97 MCH 31.9 MCHC 32.9 RDW 16.9 H Plt Count 60 L Sodium 140.3 Potassium 4.0 Chloride 100 Carbon Dioxide 33 H Anion Gap 7 BUN 34 H Creatinine 2.47 H Est GFR ( Amer) 23 L Glucose 103 Calcium 9.9 03/01/19 03/01/19 03/01/19 14:35 14:35 21:00 Troponin I 0.053 0.052 NT-Pro-B Natriuret Pep [id number] H 03/02/19 03/03/19 03/05/19 03:06 06:00 05:47 Troponin I 0.056 NT-Pro-B Natriuret Pep 94490 H 86069 H Impressions: Head CT 03/01/19 16:05 IMPRESSION: NO ACUTE INTRACRANIAL IMAGING FINDINGS. EVIDENCE OF ACUTE STROKE: NO. Cervical Spine CT 03/01/19 16:06 IMPRESSION: No acute osseous abnormality of the cervical spine. Right greater than left pleural effusions. Lumbar Spine CT 03/01/19 16:06 IMPRESSION: No acute osseous abnormality of the lumbar spine. Thoracic Spine CT 03/01/19 16:06 IMPRESSION: No acute osseous abnormality of the thoracic spine. Large right greater than left pleural effusions. Chest X-Ray 03/03/19 00:00 IMPRESSION: Increased vascular congestion. Persistent left effusion. New right basilar opacity. Assessment and Plan - Diagnosis (1) Congestive heart failure Qualifiers: Heart failure type: unspecified Heart failure chronicity: acute Qualified Code(s): I50.9 - Heart failure, unspecified Is this a current diagnosis for this admission?: Yes Plan: Improved; now ambulatory on room air and able to lie supine on baseline oxygen requirement without dyspnea. Pedal edema is improved. proBNP elevated to 79k -> 69k Chest x-ray demonstrates bilateral pleural effusions and pulmonary edema. Follow up CXR unchanged. Echocardiogram pending. Troponin stable; no longer trending. The patient is admitted to telemetry. Continue daily aspirin and statin therapy. Transition to oral furosemide 40 mg BID; takes 20 BID at home. Continue home dose metoprolol Consider cardiology consultation. Consistent carb/cardiac diet; fluid restriction. I'&O's, daily weights 03/05/2019-stable at this time. Continue diuresis. Await echocardiogram results. I's and O's and daily weights. (2) Acute on chronic kidney failure Qualifiers: Acute renal failure type: unspecified Chronic kidney disease stage: stage 4 (severe) Qualified Code(s): N17.9 - Acute kidney failure, unspecified; N18.4 - Chronic kidney disease, stage 4 (severe) Is this a current diagnosis for this admission?: Yes Plan: Patient is admitted with a creatinine of 2.22, up from baseline of 1.6. Overall stable; perhaps this is patient's new baseline 2.13-> 2.19-> 2.22-> 2.26 Patient has history of nephrectomy secondary to renal carcinoma; previously on hemodialysis. Acute worsening is likely secondary to CHF exacerbation. Patient is followed by Dr. Feliciano. Will optimize cardiac output. Avoid nephrotoxic medications as able. Monitor daily chemistries. Consider nephrology consultation if worsens. 03/05/2019-stable at this time. Continue to follow daily renal panels. 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 Registered dietitian is consulted. Consistent carb/cardiac diet. Continue home dose Lantus Accu-Cheks before meals and at bedtime with sliding scale insulin. Hypoglycemia protocol. 03/05/2019-stable. Hypoglycemia episodes probably stress-induced. Continue to follow (4) Opiate dependence, continuous Is this a current diagnosis for this admission?: Yes Plan: Patient endorses opiate dependent chronic back pain. Continue home dose Oxycodone 5/325 every 4 as needed. Continue home dose Butrans patch 03/05/2019-continue home Butrans and oxycodone (5) Pleural effusion Is this a current diagnosis for this admission?: Yes Plan: Secondary #1. Evaluation management as above. Asymptomatic; patient is currently comfortable and ambulatory room air Should she developed worsening respiratory status, will consider thoracentesis. Follow up CXR. 03/05/2019-stable at this time. We will continue to follow thoracentesis as needed. - Time Time Spent with patient: 15-24 minutes - Inpatient Certification Based on my medical assessment, after consideration of the patient's comorbidities, presenting symptoms, or acuity I expect that the services needed warrant INPATIENT care.: Yes I certify that my determination is in accordance with my understanding of Medicare's requirements for reasonable and necessary INPATIENT services [42 CFR 412.3e].: Yes Medical Necessity: Significant Comorbidiites Make Outpatient Treatment Too Risky, Need Close Monitoring Due to Risk of Patient Decompensation
[2019-03-05] MEDS: ATORVASTATIN CALCIUM 40 MG TABLET PO SCH (23:16)
[2019-03-05] MEDS: INSULIN GLARGINE,HUM.REC.ANLOG 1,000 UNIT/10 ML VIAL SUBCUT SCH (23:16)
[2019-03-06] MEDS: PANTOPRAZOLE SODIUM 20 MG TABLET.DR PO SCH (06:00)
[2019-03-06] MEDS: INSULIN LISPRO 100 UNIT/ML 3 ML VIAL SUBCUT SCH ×2 (08:00→12:32)
--- NOTE | 2019-03-06 08:51 | PDOC DISCHARGE SUMMARY ---
Impression - Admit/DC Date/PCP Admission Date/Primary Care Provider: 03/01/19 18:31 BERTHA NIELSON PA-C Discharge Date: 03/06/19 - Discharge Diagnosis (1) Congestive heart failure Is this a current diagnosis for this admission?: Yes (2) Acute on chronic kidney failure Is this a current diagnosis for this admission?: Yes (3) Diabetes Is this a current diagnosis for this admission?: Yes (4) Opiate dependence, continuous Is this a current diagnosis for this admission?: Yes (5) Pleural effusion Is this a current diagnosis for this admission?: Yes - Additional Information Resuscitation Status: Full Code Discharge Diet: As Tolerated Discharge Activity: Activity As Tolerated Referrals: ERIN MEZA MD [ACTIVE STAFF] - Follow up as needed Home Medications: Aspirin [Ecotrin 81 mg EC Tablet] 81 mg PO DAILY 03/01/19 Atorvastatin Calcium [Lipitor 40 mg Tablet] 40 mg PO QHS 03/01/19 Buprenorphine [Butrans] 1 each TD TU@1000 03/01/19 Calcitriol [Rocaltrol 0.25 mcg Capsule] 0.25 mcg PO MOWEFR@1000 03/01/19 Diclofenac Sodium [Voltaren] 2 gm TP QID 03/01/19 Ergocalciferol (Vitamin D2) [Vitamin D2] 50,000 unit PO FR@1000 03/01/19 Furosemide [Lasix 20 mg Tablet] 20 mg PO BID 03/01/19 Insulin Glargine,Hum.rec.anlog [Lantus Insulin 100 Unit/1 ml 10 ml] 5 unit SUBCUT QHS 03/01/19 Magnesium Oxide [Mag-Ox 400 mg Tablet] 400 mg PO BID 03/01/19 Metoprolol Succinate [Toprol Xl 50 mg Tab.sr] 50 mg PO DAILY 03/01/19 Omeprazole 20 mg PO DAILY 03/01/19 Paroxetine HCl [Paxil] 10 mg PO DAILY 03/01/19 Aspirin [Aspirin 81 mg Chewable Tablet] 81 mg PO DAILY tab.chew 03/06/19 History of Present Illiness History of Present Illness: MAGGI HARRINGTON is a 83 year old female who presented to the ER with shortness of breath. Hospital Course Hospital Course: Patient presented to ER with shortness of breath with past medical history of STEMI, hypertension, hyperlipidemia, chronic kidney disease stage IV, nephrectomy secondary to renal carcinoma previous Seth on hemodialysis, diabetes, hypothyroidism, obesity, GERD, depression and opiate dependence. Patient presented to the emerge part from her audio specialist Dr. Perez office for shortness of breath, peripheral edema and worsening renal function. Evaluation emergency department revealed hypertension, mild hypoxia on room air of 91% and chronic anemia. Creatinine was 2.13 and a BNP of 79,000. Chest x-ray also distracted bilateral pleural effusions right greater than left with mild vascular congestion. Patient was admitted to medical surgical floor and diuresed. Patient has shown significant improvement to return home at this time. Patient will follow-up with Dr. Perez in 1 week to evaluate echocardiogram results. Patient's echocardiogram is not back at this time the patient remains on carb, beta-blockers, and Lasix. Physical Exam Vital Signs: Temp Pulse Resp BP Pulse Ox 97.7 F 75 19 107/49 L 92 03/05/19 14:41 03/06/19 07:00 03/05/19 14:41 03/05/19 14:41 03/05/19 14:41 Intake & Output 03/05/19 03/06/19 03/07/19 06:59 06:59 06:59 Intake Total 1308 950 Output Total 800 400 Balance 508 550 Weight 66 kg 66 kg General appearance: PRESENT: no acute distress, well-developed, well-nourished Head exam: PRESENT: atraumatic, normocephalic Eye exam: PRESENT: conjunctiva pink, EOMI, PERRLA. ABSENT: scleral icterus Ear exam: PRESENT: normal external ear exam Mouth exam: PRESENT: moist, tongue midline Neck exam: ABSENT: carotid bruit, JVD, lymphadenopathy, thyromegaly Respiratory exam: PRESENT: clear to auscultation price. ABSENT: rales, rhonchi, wheezes Cardiovascular exam: PRESENT: RRR. ABSENT: diastolic murmur, rubs, systolic murmur Pulses: PRESENT: normal dorsalis pedis pul Vascular exam: PRESENT: normal capillary refill GI/Abdominal exam: PRESENT: normal bowel sounds, soft. ABSENT: distended, guarding, mass, organolmegaly, rebound, tenderness Rectal exam: PRESENT: deferred Extremities exam: PRESENT: full ROM. ABSENT: calf tenderness, clubbing, pedal edema Neurological exam: PRESENT: alert, awake, oriented to person, oriented to place, oriented to time, oriented to situation, CN II-XII grossly intact. ABSENT: motor sensory deficit Psychiatric exam: PRESENT: appropriate affect, normal mood. ABSENT: homicidal ideation, suicidal ideation Skin exam: PRESENT: dry, intact, warm. ABSENT: cyanosis, rash Results Laboratory Results: WBC 3.8 10^3/uL (4.0-10.5) L 03/05/19 06:00 RBC 3.00 10^6/uL (3.72-5.28) L 03/05/19 06:00 Hgb 9.6 g/dL (12.0-15.5) L 03/05/19 06:00 Hct 29.1 % (36.0-47.0) L 03/05/19 06:00 MCV 97 fl (80-97) 03/05/19 06:00 MCH 31.9 pg (27.0-33.4) 03/05/19 06:00 MCHC 32.9 g/dL (32.0-36.0) 03/05/19 06:00 RDW 16.9 % (11.5-14.0) H 03/05/19 06:00 Plt Count 60 10^3/uL (150-450) L 03/05/19 06:00 Lymph % (Auto) 23.5 % (13-45) 03/01/19 14:35 [place] % (Auto) 6.2 % (3-13) 03/01/19 14:35 Eos % (Auto) 1.6 % (0-6) 03/01/19 14:35 Baso % (Auto) 0.9 % (0-2) 03/01/19 14:35 Absolute Neuts (auto) 3.7 10^3/uL (1.7-8.2) 03/01/19 14:35 Absolute Lymphs (auto) 1.3 10^3/uL (0.5-4.7) 03/01/19 14:35 Absolute Monos (auto) 0.3 10^3/uL (0.1-1.4) 03/01/19 14:35 Absolute Eos (auto) 0.1 10^3/uL (0.0-0.6) 03/01/19 14:35 Absolute Basos (auto) 0.0 10^3/uL (0.0-0.2) 03/01/19 14:35 Seg Neutrophils % 67.8 % (42-78) 03/01/19 14:35 Sodium 140.3 mmol/L (137-145) 03/05/19 05:47 Potassium 4.0 mmol/L (3.6-5.0) 03/05/19 05:47 Chloride 100 mmol/L (98-107) 03/05/19 05:47 Carbon Dioxide 33 mmol/L (22-30) H 03/05/19 05:47 Anion Gap 7 (5-19) 03/05/19 05:47 BUN 34 mg/dL (7-20) H 03/05/19 05:47 Creatinine 2.47 mg/dL (0.52-1.25) H 03/05/19 05:47 Est GFR ( Amer) 23 (>60) L 03/05/19 05:47 Est GFR (MDRD) Non-Af 19 (>60) L 03/05/19 05:47 Glucose 103 mg/dL (75-110) 03/05/19 05:47 POC Glucose 139 mg/dL (70-110) H 03/06/19 06:17 Hemoglobin A1c % 5.7 % (4.7-6.0) 03/02/19 05:30 Calcium 9.9 mg/dL (8.4-10.2) 03/05/19 05:47 Magnesium 2.2 mg/dL (1.6-2.3) 03/01/19 14:35 Total Bilirubin 1.4 mg/dL (0.2-1.3) H 03/01/19 14:35 Direct Bilirubin 0.7 mg/dL (0.0-0.4) H 03/01/19 14:35 Neonat Total Bilirubin Not Reportable 03/01/19 14:35 Neonat Direct Bilirubin Not Reportable 03/01/19 14:35 Neonat Indirect Bili Not Reportable 03/01/19 14:35 AST 36 U/L (14-36) 03/01/19 14:35 ALT 12 U/L (<35) 03/01/19 14:35 Alkaline Phosphatase 101 U/L (38-126) 03/01/19 14:35 Troponin I 0.056 ng/mL 03/02/19 03:06 NT-Pro-B Natriuret Pep 70885 pg/mL (<450) H 03/05/19 05:47 Total Protein 7.0 g/dL (6.3-8.2) 03/01/19 14:35 Albumin 4.2 g/dL (3.5-5.0) 03/01/19 14:35 Triglycerides 74 mg/dL (<150) 03/02/19 05:30 Cholesterol 80.29 mg/dL (0-200) 03/02/19 05:30 LDL Cholesterol Direct 44 mg/dL (<100) 03/02/19 05:30 VLDL Cholesterol 15.0 mg/dL (10-31) 03/02/19 05:30 HDL Cholesterol 30 mg/dL (>40) L 03/02/19 05:30 Lipase 160.2 U/L (23-300) 03/01/19 14:35 TSH 1.90 uIU/mL (0.47-4.68) 03/02/19 05:30 Urine Color YELLOW 03/01/19 14:35 Urine Appearance CLEAR 03/01/19 14:35 Urine pH 5.0 (5.0-9.0) 03/01/19 14:35 Ur Specific [place] 1.020 03/01/19 14:35 Urine Protein >=500 mg/dL (NEGATIVE) H 03/01/19 14:35 Urine Glucose (UA) NEGATIVE mg/dL (NEGATIVE) 03/01/19 14:35 Urine Ketones NEGATIVE mg/dL (NEGATIVE) 03/01/19 14:35 Urine Blood NEGATIVE (NEGATIVE) 03/01/19 14:35 Urine Nitrite (Reflex) NEGATIVE (NEGATIVE) 03/01/19 14:35 Urine Bilirubin NEGATIVE (NEGATIVE) 03/01/19 14:35 Urine Urobilinogen NEGATIVE mg/dL (<2.0) 03/01/19 14:35 Leukocyte Esterase Rfl NEGATIVE (NEGATIVE) 03/01/19 14:35 Urine RBC (Auto) 0 /HPF 03/01/19 14:35 U Hyaline Cast (Auto) 3 /LPF 03/01/19 14:35 Urine Bacteria (Auto) TRACE /HPF 03/01/19 14:35 Urine WBC (Reflex) 1 /HPF 03/01/19 14:35 Squamous Epi Cells Auto 2 /HPF 03/01/19 14:35 Urine Mucus (Auto) RARE /LPF 03/01/19 14:35 Urine Ascorbic Acid NEGATIVE (NEGATIVE) 03/01/19 14:35 03/01/19 03/01/19 03/01/19 14:35 14:35 21:00 Troponin I 0.053 0.052 NT-Pro-B Natriuret Pep 01199 H 03/02/19 03/03/19 03/05/19 03:06 06:00 05:47 Troponin I 0.056 NT-Pro-B Natriuret Pep 53613 H 74349 H Impressions: Chest X-Ray 03/01/19 14:06 IMPRESSION: Bilateral pleural effusions right greater than left. This is new from prior study. Mild vascular congestion. Head CT 03/01/19 16:05 IMPRESSION: NO ACUTE INTRACRANIAL IMAGING FINDINGS. EVIDENCE OF ACUTE STROKE: NO. Cervical Spine CT 03/01/19 16:06 IMPRESSION: No acute osseous abnormality of the cervical spine. Right greater than left pleural effusions. Lumbar Spine CT 03/01/19 16:06 IMPRESSION: No acute osseous abnormality of the lumbar spine. Thoracic Spine CT 03/01/19 16:06 IMPRESSION: No acute osseous abnormality of the thoracic spine. Large right greater than left pleural effusions. Chest X-Ray 03/03/19 00:00 IMPRESSION: Increased vascular congestion. Persistent left effusion. New right basilar opacity. Plan Time Spent: Greater than 30 Minutes Stroke Is this a Stroke Patient?: No Acute Heart Failure - Is this a Heart Failure Patient?: Yes Documentation of LVEF assessment?: No, Document reason - Echocardiogram not returned at this time patient will follow-up with cardiology LVEF < 40%?: No- if no continue to question #3 d) Discharged on evidence-based Beta chalino(carvedilol, sustained release metoprolol succinate, or bisoprolol)?: Yes e) For LVEF <35%, discharged on Aldosterone antagonist?: N/A (LVEF > or = 35%) 3. Anticoagulant therapy for permanect/persistent/paraoxysmal Afib or Aflutter: N/A Follow-up Appointment scheduled within 7 days?: Yes
[2019-03-06 08:59] LABS: ANION GAP 7 (5-19); BLOOD UREA NITROGEN 38 mg/dL (7-20); CALCIUM 10.1 mg/dL (8.4-10.2); CARBON DIOXIDE 36 mmol/L (22-30); CHLORIDE 97 mmol/L (98-107); GLUCOSE 136 mg/dL (75-110); POTASSIUM 4.3 mmol/L (3.6-5.0)
[2019-03-06] MEDS: DOCUSATE SODIUM 100 MG CAPSULE PO SCH (09:29)
[2019-03-06] MEDS: PAROXETINE HCL 20 MG TABLET PO SCH (09:32)
[2019-03-06] MEDS: FUROSEMIDE 20 MG TABLET PO SCH (09:32)
[2019-03-06] MEDS: MAGNESIUM OXIDE 400 MG TABLET PO SCH (09:32)
[2019-03-06] MEDS: CALCITRIOL 0.25 MCG CAPSULE PO SCH (09:32)
[2019-03-06] MEDS: ASPIRIN 81 MG TABLET, CHEWABLE PO SCH (09:32)
[2019-03-06] MEDS: METOPROLOL SUCCINATE 50 MG TAB.SR.24H PO SCH (09:33)
[2019-03-06] MEDS: LOSARTAN POTASSIUM 25 MG TABLET PO SCH (09:33)
--- NOTE | 2019-03-06 11:57 | XCELERA REPORT ---
[address] [address] Transthoracic Echocardiogram Report Name: MAGGI HARRINGTON Age: 83 yrs Gender: Female : 1935 Patient Status: Inpatient Patient Location: [address] [place], [place] [id number] Study Date: 03/04/2019 10:31 AM Height: 60 in Weight: 150 lb BSA: 1.7 m2 Procedure: A two-dimensional transthoracic echocardiogram with color flow and Doppler was performed. Study Quality: Fair. Reason For Study: CHF History: CHF. Ordering Physician: BIB GAMBOA Performed By: Scott Vences Interpretation Summary CHF The left ventricle is normal in size. There is normal left ventricular wall thickness. LV EF is > than 55% Left ventricular systolic function is normal. Doppler measurements suggest normal left ventricular diastolic function The left ventricular wall motion is normal. There is no thrombus. No ASD,VSD, or PFO seen. The right ventricle is moderately dilated. The right ventricular systolic function is mild to moderately reduced. The right atrium is mild to moderately dilated. The left atrium is mildly dilated. There is no evidence of mitral valve prolapse. There is no vegetation seen on the mitral valve. There is no mitral valve stenosis. There is a moderate to severe amount of mitral regurgitation There is no aortic valvular vegetation. There is aortic sclerosis without aortic stenosis. There is no LVOT obstruction. No aortic regurgitation is present. There is no tricuspid stenosis. There is a severe amount of tricuspid regurgitation There is servere pulmonary hypertension by echo RVSP is at least 109 mm of Hg , with RA mean of at least 20. There is no pulmonic valvular stenosis. There is a mild amount of pulmonic regurgitation The aortic root is normal size. The inferior vena cava appeared dilated and did not change with respiration (RAP > 20 mmHg) There is no pericardial effusion. MMode/2D Measurements & Calculations RVDd: 4.3 cm LVIDd: 4.8 cm FS: 27.8 % Ao root diam: 2.8 cm IVSd: 0.91 cm LVIDs: 3.4 cm EDV(Teich): 106.3 ml Ao root area: 6.2 cm2 LVPWd: 0.91 cm ESV(Teich): 49.1 ml LA dimension: 4.1 cm EF(Teich): 53.8 % Doppler Measurements & Calculations MV E max cyndi: MV P1/2t max cyndi: Ao V2 max: LV V1 max P.8 cm/sec 131.4 cm/sec 177.4 cm/sec 5.5 mmHg MV A max cyndi: MV P1/2t: 47.4 msec Ao max PG: LV V1 max: 125.2 cm/sec MVA(P1/2t): 4.6 cm2 12.6 mmHg 117.5 cm/sec MV E/A: 1.2 MV dec slope: LV dP/dt: 699.0 mmHg/s 811.2 cm/sec2 MV dec time: 0.15 sec PA V2 max: PI end-d cyndi: TR max cyndi: MV P1/2t-pr_phl: 111.1 cm/sec 59.7 cm/sec 472.5 cm/sec 47.4 msec PA max P.9 mmHg TR max P.3 mmHg Left Ventricle The left ventricle is normal in size. There is normal left ventricular wall thickness. LV EF is > than 55%. Left ventricular systolic function is normal. Doppler measurements suggest normal left ventricular diastolic function. The left ventricular wall motion is normal. There is no thrombus. No ASD,VSD, or PFO seen. Right Ventricle The right ventricle is moderately dilated. The right ventricle is not well visualized secondary to technical limitations. The right ventricular systolic function is mild to moderately reduced. Atria The right atrium is mild to moderately dilated. The left atrium is mildly dilated. Mitral Valve There is no evidence of mitral valve prolapse. There is no vegetation seen on the mitral valve. There is no mitral valve stenosis. There is a moderate to severe amount of mitral regurgitation. Aortic Valve There is no aortic valvular vegetation. There is aortic sclerosis without aortic stenosis. There is no LVOT obstruction. No aortic regurgitation is present. Tricuspid Valve There is no tricuspid stenosis. There is a severe amount of tricuspid regurgitation. There is servere pulmonary hypertension by echo. RVSP is at least 109 mm of Hg , with RA mean of at least 20. Pulmonic Valve There is no pulmonic valvular stenosis. There is a mild amount of pulmonic regurgitation. Great Vessels The aortic root is normal size. The inferior vena cava appeared dilated and did not change with respiration (RAP > 20 mmHg). Effusions There is no pericardial effusion. : BIB GAMBOA Lakshmi
[2019-03-06 12:51] VITALS: BP 125/52
== END 2019-03-06 13:19 | disposition home or self-care (01) | DRG 291 ==
LOC: ER 13:50 → EH 18:31 → 4N 20:33
PROVIDERS: ADMIT Internal Medicine; ATTEND Internal Medicine
DX: I13.0 Hypertensive heart and chronic kidney disease with heart failure and stage 1 through stage 4 chronic kidney disease, or unspecified chronic kidney disease (principal); I50.31 Acute diastolic (congestive) heart failure; N17.9 Acute kidney failure, unspecified; F11.20 Opioid dependence, uncomplicated; E78.5 Hyperlipidemia, unspecified; E11.22 Type 2 diabetes mellitus with diabetic chronic kidney disease; N18.9 Chronic kidney disease, unspecified; E03.9 Hypothyroidism, unspecified; E66.9 Obesity, unspecified; K21.9 Gastro-esophageal reflux disease without esophagitis; F32.9 Major depressive disorder, single episode, unspecified; G89.29 Other chronic pain; D63.1 Anemia in chronic kidney disease; G43.909 Migraine, unspecified, not intractable, without status migrainosus; M10.9 Gout, unspecified; M54.9 Dorsalgia, unspecified; I25.2 Old myocardial infarction; M19.90 Unspecified osteoarthritis, unspecified site; Z90.5 Acquired absence of kidney; Z91.81 History of falling; Z86.718 Personal history of other venous thrombosis and embolism; Z90.49 Acquired absence of other specified parts of digestive tract; Z79.82 Long term (current) use of aspirin; Z79.899 Other long term (current) drug therapy; Z82.3 Family history of stroke; Z79.4 Long term (current) use of insulin; Z91.041 Radiographic dye allergy status; Z88.6 Allergy status to analgesic agent; Z88.8 Allergy status to other drugs, medicaments and biological substances; Z85.528 Personal history of other malignant neoplasm of kidney
CPT/HCPCS: 36415; 70450; 71045; 71046; 72125; 72128; 72131; 80048; 80053; 80061; 81001; 82962; 83036; 83690; 83735; 83880; 84443; 84484; 85025; 85027; 93005; 93010; 93306; 94667; 94668; 94799; 99285; J0360; J1642; J1815; J1940; J2405; J3490

== ENCOUNTER 2019-03-10 22:17 | Emergency (ER) | payer MEDICARE, BC ==
[2019-03-10 23:55] LABS: APPEARANCE,URINE CLEAR; BILIRUBIN,URINE NEGATIVE (NEGATIVE); COLOR,URINE YELLOW; GLUCOSE, URINE NEGATIVE (NEGATIVE); KETONES,URINE NEGATIVE (NEGATIVE); LEUKOCYTE ESTERASE,URINE NEGATIVE (NEGATIVE); NITRITE,URINE NEGATIVE (NEGATIVE); PROTEIN,URINE 100 mg/dL (NEGATIVE); URINE SPECIFIC GRAVITY 1.016; UROBILINOGEN,URINE NEGATIVE mg/dL (<2.0)
[2019-03-11 00:46] LABS: ABSOLUTE EOSINOPHILS # (AUTO) 0.1 10^3/uL (0.0-0.6); ABSOLUTE LYMPHOCYTES (AUTO) 1.1 10^3/uL (0.5-4.7); ABSOLUTE MONOCYTES (AUTO) 0.4 10^3/uL (0.1-1.4); ABSOLUTE NEUT (AUTO) 3.5 10^3/uL (1.7-8.2); BASOPHILS % (AUTO) 0.8 % (0-2); EOSINOPHILS % (AUTO) 1.7 % (0-6); HEMATOCRIT 32.2 % (36.0-47.0); HEMOGLOBIN 10.4 g/dL (12.0-15.5); MEAN CORPUSCULAR HEMOGLOBIN 31.4 pg (27.0-33.4); MEAN CORPUSCULAR HGB CONC 32.2 g/dL (32.0-36.0); MEAN CORPUSCULAR VOLUME 98 fl (80-97); MONOCYTES % (AUTO) 7.8 % (3-13); RED BLOOD COUNT 3.31 10^6/uL (3.72-5.28); RED CELL DISTRIBUTION WIDTH 17.1 % (11.5-14.0); SEGMENTED NEUTROPHILS % (AUTO) 68.7 % (42-78); TOTAL CELLS COUNTED % (AUTO) 100 %; WHITE BLOOD COUNT 5.1 10^3/uL (4.0-10.5)
--- NOTE | 2019-03-11 00:46 | EKG REPORT ---
SEVERITY:- ABNORMAL ECG - SINUS RHYTHM LAD, CONSIDER LAFB OR INFERIOR INFARCT CONSIDER ANTEROSEPTAL INFARCT NONSPECIFIC T ABNORMALITIES, INFERIOR LEADS : Confirmed by: Tracy Bennett MD 11-Mar-2019 00:46:13
--- NOTE | 2019-03-11 00:52 | RADIOLOGY REPORT (SQ) ---
EXAM DESCRIPTION: XR CHEST 1 VIEW COMPLETED DATE/TME: 03/10/2019 23:05 CLINICAL HISTORY: 83 years, Female, AMS COMPARISON: 03/03/2019 chest NUMBER OF VIEWS: 1 TECHNIQUE: Portable chest LIMITATIONS: None. FINDINGS: Stable cardiomegaly. [id number] catheter in place. Atheromatous change of the thoracic aorta. Osteopenia. Mild interstitial edema. Small right pleural effusion. This is improved from the prior. No pneumothorax IMPRESSION: Cardiomegaly. Mild interstitial edema. Small right effusion copyright 2010 [employer]- All Rights Reserved
[2019-03-11 01:02] LABS: PLATELET COUNT 66 10^3/uL (150-450)
[2019-03-11 01:03] LABS: ALBUMIN 3.8 g/dL (3.5-5.0); ALKALINE PHOSPHATASE 112 U/L (38-126); ANION GAP 7 (5-19); ASPARTATE AMINO TRANSFERASE 38 U/L (14-36); BILIRUBIN,DIRECT 0.3 mg/dL (0.0-0.4); BILIRUBIN,TOTAL 1.1 mg/dL (0.2-1.3); BLOOD UREA NITROGEN 37 mg/dL (7-20); CALCIUM 10.5 mg/dL (8.4-10.2); CARBON DIOXIDE 31 mmol/L (22-30); CHLORIDE 100 mmol/L (98-107); GLUCOSE 116 mg/dL (75-110); POTASSIUM 4.5 mmol/L (3.6-5.0); TOTAL PROTEIN 6.4 g/dL (6.3-8.2)
--- NOTE | 2019-03-11 01:14 | RADIOLOGY REPORT (SQ) ---
EXAM DESCRIPTION: CT HEAD WITHOUT IV CONTRAST COMPLETED DATE/TME: 03/10/2019 23:05 CLINICAL HISTORY: AMS COMPARISON: 03/01/2019. TECHNIQUE: Axial CT of the head obtained from the skull apex to the skull base without contrast. FINDINGS: No acute intracranial hemorrhage identified. No mass, mass effect, shift of the midline, abnormal extra-axial fluid collection or CT evidence of acute ischemic change identified. The ventricular system and sulcal spaces are mildly enlarged compatible with mild cerebral atrophy. Scattered areas of hypodensity throughout the supratentorial white matter are nonspecific and may be related to chronic small vessel ischemic change. Minimal mucosal thickening of the right maxillary sinus. Mastoid air cells are well aerated. No skull fracture identified. Visualized orbits and globes are unremarkable. Atherosclerotic calcification of the intracranial internal carotid arteries. IMPRESSION: 1. No acute intracranial abnormality by CT criteria. This exam was performed according to our departmental dose-optimization program, which includes automated exposure control, adjustment of the mA and/or kV according to patient size and/or use of iterative reconstruction technique.
--- NOTE | 2019-03-11 03:25 | ER Document Report ---
ED General - General Chief Complaint: Altered Mental Status Stated Complaint: ALTERED MENTAL STATUS/POSSIBLE DEHYDRATION Time Seen by Provider: 03/10/19 22:54 Primary Care Provider: BERTHA NIELSON PA-C [Primary Care Provider] - Follow up as needed Notes: Patient is a 83-year-old female history of diabetes, kidney cancer, chronic kidney failure, iron deficiency anemia, thrombocytopenia, diabetes, congestive heart failure presents to the emergency department with her daughter for altered mental status. Daughter denies any history of Alzheimer's or dementia. Daughter states over the last 3 days the patient has had intermittent "confusion." Daughter states that she is been checking the patient's blood sugars and they are always within normal limits. States sometimes she "can answer questions fine and sometimes she cannot." Daughter is concerned that the patient may have a urinary tract infection. States when the patient was confused in the past she did have a urinary tract infection. Patient did have a fall approximately 1 week ago. Still has bruising over the right eye. Daughter states patient was seen in the emergency department and she does not feel as though the patient has had any falls since but is "not 100% sure." Patient does wear an adult brief. Daughter and patient are denying any nausea, vomiting, diarrhea, fevers. Patient is denying any chest pain, shortness of breath, abdominal pain. Patient does have a history of hypertension and takes medications for same. TRAVEL OUTSIDE OF THE [place] IN LAST 30 DAYS: No - Related Data Allergies/Adverse Reactions: DENZEL Inhibitors [Denzel Inhibitors] Allergy (Verified 03/01/19 16:03) amlodipine besylate [From Norvasc] Allergy (Verified 03/01/19 16:03) exenatide [From Byetta] Allergy (Verified 03/01/19 16:03) Iodinated Contrast Media [IV Dye, Iodine Containing] Allergy (Verified 03/01/19 16:03) metformin [Metformin] Allergy (Verified 03/01/19 16:03) morphine [Morphine] Allergy (Verified 03/01/19 16:03) nitrofurantoin macrocrystalline [From Macrobid] Allergy (Verified 03/01/19 16:03) Past Medical History - General Information source: Patient, Relative - Social History Smoking Status: Never Smoker Chew tobacco use (# tins/day): No Frequency of alcohol use: None Drug Abuse: None Family History: Reviewed & Not Pertinent, CVA Patient has suicidal ideation: No Patient has homicidal ideation: No - Past Medical History Cardiac Medical History: Reports: Hx DVT, Hx Heart Attack, Hx Hypercholesterolemia, Hx Hypertension Denies: Hx Congestive Heart Failure, Hx Coronary Artery Disease Pulmonary Medical History: Denies: Hx Asthma, Hx Bronchitis, Hx COPD, Hx Pneumonia Neurological Medical History: Reports: Hx Migraine. Denies: Hx Cerebrovascular Accident, Hx Seizures Endocrine Medical History: Reports: Hx Diabetes Mellitus Type 2, Hx Hypothyroidism Renal/ Medical History: Reports: Hx Renal Insufficiency. Denies: Hx Peritoneal Dialysis Malignancy Medical History: Reports: Hx Renal (Kidney) Cancer GI Medical History: Reports: Hx Gastroesophageal Reflux Disease, Hx Irritable Bowel. Denies: Hx Hepatitis, Hx Hiatal Hernia, Hx Ulcer Musculoskeletal Medical History: Reports Hx Arthritis, Reports Hx Gout, Reports Hx Muscle Spasm Psychiatric Medical History: Reports: Hx Depression Infectious Medical History: Denies: Hx Hepatitis Past Surgical History: Reports: Hx Appendectomy, Hx Section, Hx Cholecystectomy, Hx Genitourinary Surgery - right nephrectomy, Hx Kidney (Renal Surgery) - Right nephrectomy for renal cell carcinoma, Hx Thyroid Surgery - thyroidectomy. Denies: Hx Mastectomy, Hx Open Heart Surgery, Hx Pacemaker - Immunizations Hx Diphtheria, Pertussis, Tetanus Vaccination: No Review of Systems - Review of Systems Constitutional: denies: Fever EENT: No symptoms reported Cardiovascular: See HPI Respiratory: See HPI Gastrointestinal: See HPI Genitourinary: See HPI Female Genitourinary: No symptoms reported Musculoskeletal: Leg swelling Skin: No symptoms reported Hematologic/Lymphatic: See HPI Neurological/Psychological: See HPI Physical Exam - Vital signs Vitals: Pulse Resp BP Pulse Ox 67 16 178/67 H 100 03/10/19 22:17 03/10/19 22:17 03/10/19 22:17 03/10/19 22:17 - Notes Notes: GENERAL: Alert, interacts well. No acute distress. Conscious alert and oriented x4. HEAD: Normocephalic, atraumatic. EYES: Pupils equal, round, and reactive to light. Extraocular movements intact. ENT: Oral mucosa moist, tongue midline. NECK: Full range of motion. Supple. Trachea midline. LUNGS: Clear to auscultation bilaterally, no wheezes, rales, or rhonchi. No respiratory distress. HEART: Regular rate and rhythm. No murmur ABDOMEN: Soft, non-tender. Non-distended. Bowel sounds present in all 4 quadrants. EXTREMITIES: Moves all 4 extremities spontaneously. Nonpitting edema noted bilateral lower extremities, normal radial and dorsalis pedis pulses bilaterally. No cyanosis. 5 out of 5 strength noted all 4 extremities. BACK: no cervical, thoracic, lumbar midline tenderness. No saddle anesthesia, normal distal neurovascular exam. NEUROLOGICAL: Alert and oriented x3. Normal speech. cranial nerves II through XII grossly intact PSYCH: Normal affect, normal mood. SKIN: Warm, dry, normal turgor. No rashes or lesions noted. Course - Re-evaluation Re-evalutation: Upon my initial examination patient is conscious alert and oriented x4. She is answering questions appropriately, joking and laughing with staff. Patient's d hannaher voices that this "always happens." States the patient does have intermittent confusion. Daughter states she has not gotten any sleep in the last 3 days based on patient "being intermittently confused." Patient's oral temperature was noted to be low, rectal temperature obtained. Daughter is very concerned that the patient may have urinary tract infection. Daughter also voices that she is "not with her all the time" concerned she may have recently fallen. Patient is denying any head pain or neck pain. Laboratory 03/10/19 03/11/19 03/11/19 23:14 00:25 00:25 WBC 5.1 RBC 3.31 L Hgb 10.4 L Hct 32.2 L MCV 98 H MCH 31.4 MCHC 32.2 RDW 17.1 H Plt Count 66 L Lymph % (Auto) 21.0 Dane % (Auto) 7.8 Eos % (Auto) 1.7 Baso % (Auto) 0.8 Absolute Neuts (auto) 3.5 Absolute Lymphs (auto) 1.1 Absolute Monos (auto) 0.4 Absolute Eos (auto) 0.1 Absolute Basos (auto) 0.0 Seg Neutrophils % 68.7 Sodium 138.2 Potassium 4.5 Chloride 100 Carbon Dioxide 31 H Anion Gap 7 BUN 37 H Creatinine 2.51 H Est GFR ( Amer) 22 L Est GFR (MDRD) Non-Af 18 L Glucose 116 H Lactic Acid Calcium 10.5 H Total Bilirubin 1.1 Direct Bilirubin 0.3 Neonat Total Bilirubin Not Reportable Neonat Direct Bilirubin Not Reportable Neonat Indirect Bili Not Reportable AST 38 H ALT 15 Alkaline Phosphatase 112 NT-Pro-B Natriuret Pep Total Protein 6.4 Albumin 3.8 Urine Color YELLOW Urine Appearance CLEAR Urine pH 8.0 Ur Specific [place] 1.016 Urine Protein 100 H Urine Glucose (UA) NEGATIVE Urine Ketones NEGATIVE Urine Blood NEGATIVE Urine Nitrite NEGATIVE Urine Bilirubin NEGATIVE Urine Urobilinogen NEGATIVE Ur Leukocyte Esterase NEGATIVE Urine WBC (Auto) 1 Urine RBC (Auto) 1 Squamous Epi Cells Auto <1 Urine Ascorbic Acid NEGATIVE 03/11/19 03/11/19 00:25 00:25 WBC RBC Hgb Hct MCV MCH MCHC RDW Plt Count Lymph % (Auto) Dane % (Auto) Eos % (Auto) Baso % (Auto) Absolute Neuts (auto) Absolute Lymphs (auto) Absolute Monos (auto) Absolute Eos (auto) Absolute Basos (auto) Seg Neutrophils % Sodium Potassium Chloride Carbon Dioxide Anion Gap BUN Creatinine Est GFR ( Amer) Est GFR (MDRD) Non-Af Glucose Lactic Acid 1.7 Calcium Total Bilirubin Direct Bilirubin Neonat Total Bilirubin Neonat Direct Bilirubin Neonat Indirect Bili AST ALT Alkaline Phosphatase NT-Pro-B Natriuret Pep > 55102 H Total Protein Albumin Urine Color Urine Appearance Urine pH Ur Specific [place] Urine Protein Urine Glucose (UA) Urine Ketones Urine Blood Urine Nitrite Urine Bilirubin Urine Urobilinogen Ur Leukocyte Esterase Urine WBC (Auto) Urine RBC (Auto) Squamous Epi Cells Auto Urine Ascorbic Acid Chest X-Ray 03/10/19 23:05 IMPRESSION: Cardiomegaly. Mild interstitial edema. Small right effusion copyright 2011 [employer]- All Rights Reserved Head CT 03/10/19 23:05 IMPRESSION: 1. No acute intracranial abnormality by CT criteria. This exam was performed according to our departmental dose-optimization program, which includes automated exposure control, adjustment of the mA and/or kV according to patient size and/or use of iterative reconstruction technique. Patient's urine shows no signs of infection, sent for culture. Patient's creatinine is elevated but is normally elevated as patient sees nephrology and only has one kidney. Patient's hemoglobin and hematocrit have actually increased since last visit. Patient's platelet count was noted to be 66 which is consistent with her history of thrombocytopenia. Patient's BNP is 35,000, which is improving since last visit. Patient's denying any respiratory distress. I have reevaluated the patient at bedside and she continues to be conscious alert and oriented x4. She continues to joke and laugh with staff. I discussed with daughter unfortunately she does not meet criteria for admission to the hospital. I discussed close follow-up with primary care provider as this could be the new onset of dementia or Alzheimer's. Daughter voices understanding, patient stable for discharge. 03/11/19 03:25 Blood pressure noted to be elevated, daughter states patient has been taking medications as prescribed. Patient continues without headache, chest pain, shortness of breath. Discussed with daughter and patient need for close follow- up with primary care provider. - Vital Signs Vital signs: Temp Pulse Resp BP Pulse Ox 97.5 F 66 18 190/68 H 97 03/10/19 22:55 03/10/19 22:25 03/10/19 22:25 03/10/19 22:25 03/10/19 22:25 - Laboratory Result Diagrams: 03/11/19 00:25 03/11/19 00:25 Laboratory results interpreted by me: 03/10/19 03/11/19 03/11/19 23:14 00:25 00:25 RBC 3.31 L Hgb 10.4 L Hct 32.2 L MCV 98 H RDW 17.1 H Plt Count 66 L Carbon Dioxide 31 H BUN 37 H Creatinine 2.51 H Est GFR ( Amer) 22 L Est GFR (MDRD) Non-Af 18 L Glucose 116 H Calcium 10.5 H AST 38 H NT-Pro-B Natriuret Pep Urine Protein 100 H 03/11/19 00:25 RBC Hgb Hct MCV RDW Plt Count Carbon Dioxide BUN Creatinine Est GFR ( Amer) Est GFR (MDRD) Non-Af Glucose Calcium AST NT-Pro-B Natriuret Pep > 98284 H Urine Protein Discharge - Discharge Clinical Impression: Confusion Condition: Stable Disposition: HOME, SELF-CARE Additional Instructions: As we discussed you have been seen and treated in the emergency department for confusion. Your urine shows no signs of infection, your imaging of your head was within normal limits. Your blood pressure was noted to be elevated at today's visit. Please make sure you are taking your medications as prescribed. Please also make sure you follow-up with your primary care provider in the next 12 to 24 hours. Please immediately return to the emergency room for any concerns. Forms: Elevated Blood Pressure Referrals: BERTHA NIELSON PA-C [Primary Care Provider] - Follow up as needed
[2019-03-11 03:55] VITALS: BP 196/79
== END 2019-03-11 03:53 | disposition home or self-care (01) ==
LOC: ER 22:17
DX: R41.0 Disorientation, unspecified (principal); E11.9 Type 2 diabetes mellitus without complications; N18.9 Chronic kidney disease, unspecified; D50.9 Iron deficiency anemia, unspecified; I50.9 Heart failure, unspecified; I25.2 Old myocardial infarction; I11.0 Hypertensive heart disease with heart failure
CPT/HCPCS: 36415; 70450; 71045; 80053; 81001; 82962; 83605; 83880; 85025; 87086; 93005; 93010; 99285

== ENCOUNTER → 2019-03-12 | Outpatient (CLI) | payer MEDICARE, BC ==
[2019-03-12 15:27] LABS: ABSOLUTE LYMPHOCYTES (AUTO) 0.7 10^3/uL (0.5-4.7); ABSOLUTE MONOCYTES (AUTO) 0.3 10^3/uL (0.1-1.4); ABSOLUTE NEUT (AUTO) 3.6 10^3/uL (1.7-8.2); BASOPHILS % (AUTO) 0.6 % (0-2); EOSINOPHILS % (AUTO) 0.9 % (0-6); HEMATOCRIT 31.7 % (36.0-47.0); HEMOGLOBIN 10.4 g/dL (12.0-15.5); LYMPHOCYTES % (AUTO) 15.4 % (13-45); MEAN CORPUSCULAR HEMOGLOBIN 32.5 pg (27.0-33.4); MEAN CORPUSCULAR HGB CONC 32.9 g/dL (32.0-36.0); MEAN CORPUSCULAR VOLUME 99 fl (80-97); MONOCYTES % (AUTO) 6.6 % (3-13); RED BLOOD COUNT 3.22 10^6/uL (3.72-5.28); RED CELL DISTRIBUTION WIDTH 17.6 % (11.5-14.0); SEGMENTED NEUTROPHILS % (AUTO) 76.5 % (42-78); TOTAL CELLS COUNTED % (AUTO) 100 %; WHITE BLOOD COUNT 4.7 10^3/uL (4.0-10.5)
[2019-03-12 15:34] LABS: ANION GAP 14 (5-19); BLOOD UREA NITROGEN 36 mg/dL (7-20); CALCIUM 10.8 mg/dL (8.4-10.2); CARBON DIOXIDE 27 mmol/L (22-30); CHLORIDE 104 mmol/L (98-107); GLUCOSE 153 mg/dL (75-110); PHOSPHORUS 3.1 mg/dL (2.5-4.5); POTASSIUM 4.2 mmol/L (3.6-5.0)
[2019-03-12 15:51] LABS: PLATELET COUNT 75 10^3/uL (150-450)
[2019-03-12 16:08] LABS: APPEARANCE,URINE CLEAR; BILIRUBIN,URINE NEGATIVE (NEGATIVE); COLOR,URINE YELLOW; GLUCOSE, URINE NEGATIVE (NEGATIVE); KETONES,URINE NEGATIVE (NEGATIVE); LEUKOCYTE ESTERASE,URINE MODERATE (NEGATIVE); NITRITE,URINE NEGATIVE (NEGATIVE); PROTEIN,URINE >=500 mg/dL (NEGATIVE); URINE SPECIFIC GRAVITY 1.017
[2019-03-12 16:38] LABS: UR PRO/CREAT RATIO RESULT 2.7 mg/mg (0.0-0.2); URINE PROTEIN 391.7 mg/dL (<12)
== END ==
LOC: OD 14:25
PROVIDERS: ATTEND Internal Medicine Nephrology
DX: N17.9 Acute kidney failure, unspecified (principal); I12.9 Hypertensive chronic kidney disease with stage 1 through stage 4 chronic kidney disease, or unspecified chronic kidney disease; N18.4 Chronic kidney disease, stage 4 (severe); E11.22 Type 2 diabetes mellitus with diabetic chronic kidney disease; D63.1 Anemia in chronic kidney disease
CPT/HCPCS: 36415; 80069; 81001; 82306; 82570; 83735; 83970; 84156; 84165; 85025

== ENCOUNTER 2019-05-18 18:07 | Emergency (ER) | payer MEDICARE, BC ==
[2019-05-18] MEDS ORDERED: NORMAL SALINE 500 ML IV PRN (18:57)
[2019-05-18 19:08] LABS: VENOUS BLOOD BASE EXCESS 5.2 mmol/L; VENOUS BLOOD HCO3 30.1 mmol/L (20-32); VENOUS BLOOD PCO2 45.8 mmHg (35-63); VENOUS BLOOD PH 7.44 (7.30-7.42)
[2019-05-18 19:09] LABS: HEMATOCRIT 26.1 % (36.0-47.0); HEMOGLOBIN 9.2 g/dL (12.0-15.5); MEAN CORPUSCULAR HEMOGLOBIN 34.4 pg (27.0-33.4); MEAN CORPUSCULAR HGB CONC 35.1 g/dL (32.0-36.0); MEAN CORPUSCULAR VOLUME 98 fl (80-97); RED BLOOD COUNT 2.66 10^6/uL (3.72-5.28); RED CELL DISTRIBUTION WIDTH 14.6 % (11.5-14.0); WHITE BLOOD COUNT 6.9 10^3/uL (4.0-10.5)
[2019-05-18 19:25] LABS: ALBUMIN 3.2 g/dL (3.5-5.0); ALKALINE PHOSPHATASE 238 U/L (38-126); ANION GAP 11 (5-19); ASPARTATE AMINO TRANSFERASE 60 U/L (14-36); BILIRUBIN,DIRECT 0.3 mg/dL (0.0-0.4); BLOOD UREA NITROGEN 118 mg/dL (7-20); CALCIUM 9.1 mg/dL (8.4-10.2); CARBON DIOXIDE 32 mmol/L (22-30); CHLORIDE 84 mmol/L (98-107); POTASSIUM 4.9 mmol/L (3.6-5.0); TOTAL PROTEIN 5.4 g/dL (6.3-8.2)
[2019-05-18 19:34] LABS: ABSOLUTE LYMPHOCYTES# (MANUAL) 0.6 10^3/uL (0.5-4.7); ABSOLUTE MONOCYTES # (MANUAL) 0.1 10^3/uL (0.1-1.4); BAND NEUTROPHILS % (MANUAL) 1 % (3-5); BASOPHILS % (MANUAL) 0 % (0-2); EOSINOPHILS % (MANUAL) 0 % (0-6); LYMPHOCYTES % (MANUAL) 9 % (13-45); MONOCYTES % (MANUAL) 2 % (3-13); SEGMENTED NEUTROPHILS % (MAN) 88 % (42-78); TOTAL CELLS COUNTED 100
[2019-05-18 19:43] LABS: ANISOCYTOSIS SLIGHT; OVALOCYTES 1+; POIKILOCYTOSIS SLIGHT; TOXIC GRANULATION SLIGHT
[2019-05-18 19:44] LABS: PLATELET COMMENT DECREASED; TEAR DROP CELLS SLIGHT
[2019-05-18 19:46] LABS: GLUCOSE 561 mg/dL (75-110); PLATELET COUNT 67 10^3/uL (150-450)
[2019-05-18 21:25] LABS: APPEARANCE,URINE CLEAR; BILIRUBIN,URINE NEGATIVE (NEGATIVE); COLOR,URINE YELLOW; GLUCOSE, URINE >=500 mg/dL (NEGATIVE); KETONES,URINE NEGATIVE (NEGATIVE); LEUKOCYTE ESTERASE,URINE TRACE (NEGATIVE); NITRITE,URINE NEGATIVE (NEGATIVE); PROTEIN,URINE 30 mg/dL (NEGATIVE); UROBILINOGEN,URINE NEGATIVE mg/dL (<2.0)
[2019-05-18] MEDS ORDERED: NORMAL SALINE 1000 ML 1,000 ML IV ONE (22:35)
[2019-05-18] MEDS ORDERED: INSULIN REG, HUMAN 100 UNIT/ML 3 ML VIAL (PYX) IV ONE (22:36)
[2019-05-18] MEDS ORDERED: NORMAL SALINE 500 ML IV ONE (22:41)
--- NOTE | 2019-05-18 22:46 | ER Document Report ---
ED General - General Chief Complaint: High Blood Sugar Stated Complaint: POSSIBLE HIGH BLOOD SUGAR Time Seen by Provider: 05/18/19 22:28 Primary Care Provider: BATSHEVA GONSALES MD [Primary Care Provider] - Follow up as needed TRAVEL OUTSIDE OF THE [place] IN LAST 30 DAYS: No - HPI Notes: Patient is an 84-year-old female with a history of kidney cancer, who presents to the emergency department for evaluation of elevated blood sugar. She is a history of diabetes as well. She received Decadron with her chemotherapy treatment this week. She states her blood sugars Reading high at home. Otherwise, the patient is a very poor historian, and her caregiver is not present at bedside at the time of my initial interview. She denies any pain or problems at this time, wonders if she did something wrong, and asks if she is able to go home tonight. I was able to obtain additional history from the patient's daughter. She evidently has a recurrence of her renal cell, a hemorrhagic lesion was found on the brain recently. She actually had her first gamma knife treatment on . She was treated with Decadron following that, and that has increased her blood sugar. Patient's daughter also notes that she will not stop drinking her sweet tea. - Related Data Allergies/Adverse Reactions: DENZEL Inhibitors [Denzel Inhibitors] Allergy (Verified 03/01/19 16:03) amlodipine besylate [From Norvasc] Allergy (Verified 03/01/19 16:03) exenatide [From Byetta] Allergy (Verified 03/01/19 16:03) Iodinated Contrast Media [IV Dye, Iodine Containing] Allergy (Verified 03/01/19 16:03) metformin [Metformin] Allergy (Verified 03/01/19 16:03) morphine [Morphine] Allergy (Verified 03/01/19 16:03) nitrofurantoin macrocrystalline [From Macrobid] Allergy (Verified 03/01/19 16:03) Home Medications: Decadron 4mg. magnesium oxide 400mg bid. plavix 75mg. atorvastatin 40mg. aspirin EC 81mg. omeprazole 20mg. vit d2 1.25mg. metoprolol succ ER 50mg. lantus 5units. lasix 40mg bid. melatonin Past Medical History - General Information source: Patient, [facility] Records - Social History Smoking Status: Unknown if Ever Smoked Family History: Reviewed & Not Pertinent, CVA Patient has suicidal ideation: No Patient has homicidal ideation: No - Past Medical History Cardiac Medical History: Reports: Hx Coronary Artery Disease, Hx DVT, Hx Heart Attack, Hx Hypercholesterolemia, Hx Hypertension Denies: Hx Congestive Heart Failure Pulmonary Medical History: Denies: Hx Asthma, Hx Bronchitis, Hx COPD, Hx Pneumonia Neurological Medical History: Reports: Hx Migraine. Denies: Hx Cerebrovascular Accident, Hx Seizures Endocrine Medical History: Reports: Hx Diabetes Mellitus Type 2, Hx Hypothyroidism Renal/ Medical History: Reports: Hx Renal Insufficiency. Denies: Hx Peritoneal Dialysis Malignancy Medical History: Reports: Hx Renal (Kidney) Cancer GI Medical History: Reports: Hx Gastroesophageal Reflux Disease, Hx Irritable Bowel. Denies: Hx Hepatitis, Hx Hiatal Hernia, Hx Ulcer Musculoskeletal Medical History: Reports Hx Arthritis, Reports Hx Gout, Reports Hx Muscle Spasm Psychiatric Medical History: Reports: Hx Depression Infectious Medical History: Denies: Hx Hepatitis Past Surgical History: Reports: Hx Appendectomy, Hx Section, Hx Cholecystectomy, Hx Genitourinary Surgery - right nephrectomy, Hx Kidney (Renal Surgery) - Right nephrectomy for renal cell carcinoma, Hx Thyroid Surgery - thyroidectomy. Denies: Hx Mastectomy, Hx Open Heart Surgery, Hx Pacemaker - Immunizations Hx Diphtheria, Pertussis, Tetanus Vaccination: No Review of Systems - Review of Systems Constitutional: No symptoms reported EENT: No symptoms reported Cardiovascular: No symptoms reported Respiratory: No symptoms reported Gastrointestinal: No symptoms reported Genitourinary: No symptoms reported Musculoskeletal: No symptoms reported Skin: No symptoms reported Neurological/Psychological: No symptoms reported Physical Exam - Vital signs Vitals: Pulse Ox 99 05/18/19 18:16 - Notes Notes: This is a very pleasant 84-year-old female who appears her stated age, no acute distress. Vital signs reviewed, please refer to chart. Head is normocephalic, atraumatic. Pupils equal round, reactive to light. Neck is supple without meningismus. Heart is regular rate and rhythm. Lungs are clear to auscultation bilaterally. Abdomen is soft, nontender, normoactive bowel sounds throughout. Extremities without cyanosis, clubbing. She does have +1 ankle edema noted bilaterally. Posterior calves are nontender. Peripheral pulses are equal. Skin is warm and dry. Patient is awake, alert, neurological exam is nonfocal. Course - Re-evaluation Re-evalutation: 05/18/19 22:45 Patient presents emergency department for evaluation. She laboratory i nvestigations as initially ordered through protocols. She was found to be markedly hyperglycemic. She did have a resultant hyponatremia, primarily pseudohyponatremia, but also a hypochloremia. She is given a liter of IV fluids. She is given IV insulin. Will recheck basic metabolic panel. Patient remained stable, we will continue to monitor. 05/19/19 01:10 Repeat metabolic panel is improved. Her BUN still remains elevated, but I suspect this is secondary to the gamma knife treatment or the steroids. Her renal function is actually improved. Her sodium is improved, her glucose is improved. I counseled daughter on the fact that she should continue the Decadron, try to convince the patient to avoid sweet tea, eat less high glycemic foods. Patient's daughter voiced understanding and the patient will be discharged. I will have her metabolic panel repeated on Monday with results to her primary care provider. 05/19/19 01:12 - Vital Signs Vital signs: Temp Pulse Resp BP Pulse Ox 13 127/99 H 100 05/19/19 00:46 05/19/19 00:01 05/19/19 00:46 - Laboratory Result Diagrams: 05/18/19 18:51 05/18/19 23:26 Laboratory results interpreted by me: 05/18/19 05/18/19 05/18/19 18:51 18:51 18:51 RBC 2.66 L Hgb 9.2 L Hct 26.1 L MCV 98 H MCH 34.4 H RDW 14.6 H Plt Count 67 L Seg Neuts % (Manual) 88 H Band Neutrophils % 1 L Lymphocytes % (Manual) 9 L Monocytes % (Manual) 2 L VBG pH 7.44 H Sodium 127.1 L Chloride 84 L Carbon Dioxide 32 H BUN 118 H Creatinine 2.05 H Est GFR ( Amer) 28 L Est GFR (MDRD) Non-Af 23 L Glucose 561 H* POC Glucose AST 60 H Alkaline Phosphatase 238 H Total Protein 5.4 L Albumin 3.2 L Urine Protein Urine Glucose (UA) Urine Blood Ur Leukocyte Esterase 05/18/19 05/18/19 05/18/19 20:19 20:45 21:53 RBC Hgb Hct MCV MCH RDW Plt Count Seg Neuts % (Manual) Band Neutrophils % Lymphocytes % (Manual) Monocytes % (Manual) VBG pH Sodium Chloride Carbon Dioxide BUN Creatinine Est GFR ( Amer) Est GFR (MDRD) Non-Af Glucose POC Glucose > 550 H* 434 H* AST Alkaline Phosphatase Total Protein Albumin Urine Protein 30 H Urine Glucose (UA) >=500 H Urine Blood SMALL H Ur Leukocyte Esterase TRACE H 05/18/19 05/18/19 23:26 23:31 RBC Hgb Hct MCV MCH RDW Plt Count Seg Neuts % (Manual) Band Neutrophils % Lymphocytes % (Manual) Monocytes % (Manual) VBG pH Sodium 131.1 L Chloride 90 L Carbon Dioxide 34 H BUN 118 H Creatinine 1.65 H Est GFR ( Amer) 36 L Est GFR (MDRD) Non-Af 30 L Glucose 252 H POC Glucose 275 H AST Alkaline Phosphatase Total Protein Albumin Urine Protein Urine Glucose (UA) Urine Blood Ur Leukocyte Esterase Discharge - Discharge Clinical Impression: Hyperglycemia Condition: Stable Disposition: HOME, SELF-CARE Instructions: Hyperglycemia ([facility]) Additional Instructions: Continue your home medications as prescribed. Try to avoid simple sugars, in an effort to keep blood sugar under control while on steroids. Your BUN was elevated here today as well. Please have blood work redrawn on Monday. If you develop worsening or new concerning symptoms of any sort, please return immediately to the emergency department for evaluation. Forms: Follow-Up Laboratory Testing Referrals: BATSHEVA GONSALES MD [Primary Care Provider] - Follow up as needed
[2019-05-19 00:27] LABS: ANION GAP 7 (5-19); BLOOD UREA NITROGEN 118 mg/dL (7-20); CARBON DIOXIDE 34 mmol/L (22-30); CHLORIDE 90 mmol/L (98-107); GLUCOSE 252 mg/dL (75-110)
[2019-05-19 01:15] VITALS: BP 121/61
== END 2019-05-19 01:33 | disposition home or self-care (01) ==
LOC: ER 18:07
DX: E11.65 Type 2 diabetes mellitus with hyperglycemia (principal); I25.10 Atherosclerotic heart disease of native coronary artery without angina pectoris; E78.00 Pure hypercholesterolemia, unspecified; Z86.718 Personal history of other venous thrombosis and embolism; Z88.6 Allergy status to analgesic agent; Z90.49 Acquired absence of other specified parts of digestive tract; Z85.528 Personal history of other malignant neoplasm of kidney; I25.2 Old myocardial infarction
CPT/HCPCS: 99283; 96360; 36415; 82962; 85025; 80048; 80053; 81001; 82803; A9270; J7040; J1642; J1815